=== PATIENT | male | born 1955 | race Caucasian/White ===

== ENCOUNTER 2017-03-21 10:05 | Inpatient (IN) ==
--- NOTE | 2017-03-21 10:09 | Emergency Department Note ---
Disposition Clinical Impression: Chest pain Disposition: Admitted As Inpatient Condition: Fair General Adult HPI - General Chief complaint: ED Chest Pain Stated complaint: Chest pain Time Seen by Provider: 03/21/17 10:06 - Related Data Home Medications Medication Instructions Recorded Confirmed Armodafinil [Nuvigil] 250 mg PO DAILY 03/21/17 03/21/17 Aspirin 81 mg PO DAILY 03/21/17 03/21/17 Carvedilol [Coreg] 6.25 mg PO BIDWM 03/21/17 03/21/17 Clopidogrel [Plavix] 75 mg PO DAILY 03/21/17 03/21/17 Gabapentin [Neurontin] 800 mg PO TID 03/21/17 03/21/17 Glimepiride [Amaryl] 2 mg PO QAM 03/21/17 03/21/17 Lisinopril [Zestril] 5 mg PO DAILY 03/21/17 03/21/17 Magnesium Oxide [Mgo] 400 mg PO DAILY 03/21/17 03/21/17 Metformin HCl [Glucophage] 1,000 mg PO BID 03/21/17 03/21/17 Multivits,Ca,Min/Iron/FA/Lycop 1 tab PO DAILY 03/21/17 03/21/17 [Centrum Men's Tablet] Nitroglycerin [Nitrostat] 0.4 mg SL AD PRN 03/21/17 03/21/17 OxyCODONE/APAP 5/325 [Percocet 1 tab PO Q6HR PRN 03/21/17 03/21/17 5/325 MG] Simvastatin [Zocor] 40 mg PO HS 03/21/17 03/21/17 Zolpidem [Ambien] 10 mg PO HS 03/21/17 03/21/17 Allergies Allergy/AdvReac Type Severity Reaction Status Date / Time No Known Allergies Allergy Verified 03/21/17 12:10 Past Medical History - Past Medical History Medical history: Reports: hyperlipidemia, hypertension, myocardial infarction Psychiatric history: Reports: no psych history - Social History Smoking Status: Never smoker Smokeless Tobacco Status: No Alcohol use: Reports: none Drug use: Reports: none Course Vital Signs Temperature 97.6 F 03/21/17 10:12 Pulse Rate 62 03/21/17 10:12 Respiratory Rate 18 03/21/17 10:12 Blood Pressure 150/88 03/21/17 10:12 O2 Sat by Pulse Oximetry 94 03/21/17 10:12 Temperature 97.7 F 03/21/17 14:55 Pulse Rate 60 03/21/17 14:55 Respiratory Rate 17 03/21/17 14:55 Blood Pressure 109/62 03/21/17 14:55 O2 Sat by Pulse Oximetry 94 03/21/17 14:55 Oxygen Delivery Oxygen Delivery Room Air Medical Decision Making - Lab Data Result diagrams: 03/21/17 10:23 03/21/17 10:23 Lab Results 03/21/17 03/21/17 03/21/17 Range/Units 10:23 10:23 10:23 WBC 7.5 (4.3-11.1) K/mcL RBC 4.83 (4.19-5.50) M/mcL Hgb 15.0 (12.9-16.9) g/dL Hct 41.4 (37.5-50.1) % MCV 85.7 (83.0-100.0) fL MCH 31.1 (28.0-33.3) pg MCHC 36.2 H (31.6-35.5) g/dL RDW 12.5 (11.5-14.5) % Plt Count 131 L (140-400) K/mcL MPV 10.3 (9.4-12.4) fL Immature Gran % 0.4 (0-4) % Seg Neutrophils % 57.3 % Lymphocytes % 26.4 % Monocytes % 9.7 % Eosinophils % 5.8 % Basophils % 0.4 % Neutrophils # 4.3 (1.6-8.9) K/mcL Lymphocytes # 2.0 (0.6-4.6) K/mcL Monocytes # 0.7 (0.0-1.3) K/mcL Eosinophils # 0.4 (0.0-0.6) K/mcL Basophils # 0.0 (0.0-0.2) K/mcL Immature Plt Fraction 4.9 (1.1-6.1) % PT 11.5 (9.4-12.1) Seconds INR 1.1 APTT 26.7 (26.0-36.0) Seconds Sodium 138 (136-145) mEq/L Potassium 3.9 (3.5-4.5) mEq/L Chloride 102 (98-109) mEq/L Carbon Dioxide 27 (19-29) mEq/L BUN 19 (8-26) mg/dL Creatinine 0.83 (0.72-1.25) mg/dL Est GFR ( Amer) > 60 (> 60) Est GFR (Non-Af Amer) > 60 (> 60) BUN/Creatinine Ratio 23 (6-26) Glucose 234 H (70-99) mg/dL Calculated Osmolality 296 (280-300) Calcium 9.9 (8.6-10.8) mg/dL Magnesium 1.8 (1.6-2.6) mg/dL Troponin I (0-0.03) ng/mL B-Natriuretic Peptide (0-100) pg/mL Triglycerides 101 (< 150) mg/dL Cholesterol 127 (< 200) mg/dL LDL Cholesterol, Calc 75 (0-99) mg/dL VLDL Cholesterol, Calc 20 (< 31) mg/dL HDL Cholesterol 32 L (40-59) mg/dL Cholesterol/HDL Ratio 4.0 (0-4.9) 03/21/17 03/21/17 Range/Units 10:23 10:23 WBC (4.3-11.1) K/mcL RBC (4.19-5.50) M/mcL Hgb (12.9-16.9) g/dL Hct (37.5-50.1) % MCV (83.0-100.0) fL MCH (28.0-33.3) pg MCHC (31.6-35.5) g/dL RDW (11.5-14.5) % Plt Count (140-400) K/mcL MPV (9.4-12.4) fL Immature Gran % (0-4) % Seg Neutrophils % % Lymphocytes % % Monocytes % % Eosinophils % % Basophils % % Neutrophils # (1.6-8.9) K/mcL Lymphocytes # (0.6-4.6) K/mcL Monocytes # (0.0-1.3) K/mcL Eosinophils # (0.0-0.6) K/mcL Basophils # (0.0-0.2) K/mcL Immature Plt Fraction (1.1-6.1) % PT (9.4-12.1) Seconds INR APTT (26.0-36.0) Seconds Sodium (136-145) mEq/L Potassium (3.5-4.5) mEq/L Chloride (98-109) mEq/L Carbon Dioxide (19-29) mEq/L BUN (8-26) mg/dL Creatinine (0.72-1.25) mg/dL Est GFR ( Amer) (> 60) Est GFR (Non-Af Amer) (> 60) BUN/Creatinine Ratio (6-26) Glucose (70-99) mg/dL Calculated Osmolality (280-300) Calcium (8.6-10.8) mg/dL Magnesium (1.6-2.6) mg/dL Troponin I 0.02 (0-0.03) ng/mL B-Natriuretic Peptide 36 (0-100) pg/mL Triglycerides (< 150) mg/dL Cholesterol (< 200) mg/dL LDL Cholesterol, Calc (0-99) mg/dL VLDL Cholesterol, Calc (< 31) mg/dL HDL Cholesterol (40-59) mg/dL Cholesterol/HDL Ratio (0-4.9) Attestation Statement - Attestation Attestation: I examined this patient and my medical decision-making was reviewed with the PROPERTY CUSTODIAN/PA/Advanced Practice Nurse/Resident Physician. I agree with the documented findings, disposition and treatment plan as described except to the extent set forth below. Face to face time provided Patient presents via EMS with chest pain. He appears in no acute distress on exam. He has a history of multiple vessel CABG and previous myocardial infarction. Family at bedside. Patient seen and evaluated in conjunction with the resident physician Dr. Clayton
--- NOTE | 2017-03-21 10:15 | Emergency Department Note ---
Disposition Clinical Impression: Chest pain Qualifiers: Chest pain type: unspecified Qualified Code(s): R07.9 - Chest pain, unspecified Disposition: Admitted As Inpatient Condition: Fair Forms: ED Satisfaction Letter Time of Disposition: 11:21 Chest Pain HPI - General Chief Complaint: ED Chest Pain Stated Complaint: Chest pain Time Seen by Provider: 03/21/17 10:06 Source: patient, family, EMS Mode of arrival: EMS Limitations: no limitations Vital Signs Reviewed: Yes Nursing Notes Reviewed: Yes - History of Present Illness HPI Narrative: Patient presents to the ED with the chief complaint of chest pain. Patient reports that he started having some epigastric discomfort last night and after belching and passing gas. He felt better. He was at work this morning, resting comfortably approximately 2 hours ago and had the abrupt onset of what he describes as substernal pain. It is located in the sternum, nonradiating, better or worse with nothing. Not associated with shortness of breath or diaphoresis lasted about 35 minutes and then self resolved after EMS administered nitroglycerin. He does state that he has a history of a 5 vessel bypass and that this pain is the same pain he was having with this second heart attack. He denies any symptoms currently and is pain-free. - Related Data Allergies Allergy/AdvReac Type Severity Reaction Status Date / Time No Known Allergies Allergy Unverified 10/01/15 14:02 All systems ED: reviewed and negative except as stated. Cardiovascular: Reports: chest pain (resolved) Chest Pain PMH - Past Medical History Medical history: Reports: hyperlipidemia, hypertension, myocardial infarction Psychiatric history: Reports: no psych history - Social History Smoking Status: Never smoker Alcohol use: Reports: none Drug use: Reports: none Physical Exam - General Limitations: no limitations General appearance: alert, in no apparent distress - Head Head exam: atraumatic, normocephalic, normal inspection - Eye Eye exam: Present: normal appearance, PERRL, EOMI - ENT ENT exam: normal exam, normal oropharynx, mucous membranes moist - Neck Neck exam: Present: normal inspection, full ROM, trachea midline - Chest Chest inspection: Present: normal inspection, symmetric chest wall rise - Respiratory Respiratory exam: Present: normal lung sounds bilaterally - Cardiovascular Cardiovascular exam: Present: regular rate, normal rhythm, normal heart sounds - Abdominal Exam Abdominal exam: Present: soft, Non-Tender. Absent: tenderness, distention, guarding, rebound, rigidity - Extremities Exam Extremities exam: Present: normal inspection, full ROM. Absent: tenderness, pedal edema - Neurological Exam Neurological exam: Present: alert, oriented X3 - Psychiatric Psychiatric exam: Present: normal affect, normal mood - Skin Skin exam: Present: warm, dry, intact, normal color Course Course Narrative: 61 -year-old male presenting to the ED with chest pain. 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 He started having chest pain proximally 2 hours ago, lasted about 30 minutes and resolved with nitroglycerin. This was his previous anginal equivalent. Patient's pain is completely gone. Vitals are stable. There is no diaphoresis, cyanosis, or shortness of breath. He looks well. We will get an EKG, labs, troponin. We will likely require admission. The patient was requesting transfer to [facility]. - Reevaluation(s) Reevaluation #1: Patient's EKG from EMS shows an ectopic atrial rhythm, rate 71, HI interval 228 , QTC 437, left axis deviation, slight ST segment changes in V2 and V3 with similar morph to previous. Repeating EKG here now. Reevaluation #2: Patient has remained pain-free. Troponins negative. EKG is unchanged from previous. However, the patient is having his anginal "blacked. Recommended admission. Patient originally wanted to be transferred to [place], but talked to his centerless grinder operator and states that she has been very sick and is actually receiving chemotherapy and would be unable to see him in the hospital, so he was amenable to admission here for further testing. Vital Signs Temperature 97.6 F 03/21/17 10:12 Pulse Rate 62 03/21/17 10:12 Respiratory Rate 18 03/21/17 10:12 Blood Pressure 150/88 03/21/17 10:12 O2 Sat by Pulse Oximetry 94 03/21/17 10:12 Temperature 97.6 F 03/21/17 10:12 Pulse Rate 62 03/21/17 10:43 Respiratory Rate 18 03/21/17 10:43 Blood Pressure 125/73 03/21/17 10:43 O2 Sat by Pulse Oximetry 94 03/21/17 10:43 Oxygen Delivery Oxygen Delivery Room Air Chest Pain - Medical Records Medical records reviewed: Yes I reviewed the patient's medical records. - Lab Data Lab results reviewed: Yes I reviewed the patient's lab results. Result diagrams: 03/21/17 10:23 03/21/17 10:23 Lab Results 03/21/17 03/21/17 03/21/17 Range/Units 10:23 10:23 10:23 WBC 7.5 (4.3-11.1) K/mcL RBC 4.83 (4.19-5.50) M/mcL Hgb 15.0 (12.9-16.9) g/dL Hct 41.4 (37.5-50.1) % MCV 85.7 (83.0-100.0) fL MCH 31.1 (28.0-33.3) pg MCHC 36.2 H (31.6-35.5) g/dL RDW 12.5 (11.5-14.5) % Plt Count 131 L (140-400) K/mcL MPV 10.3 (9.4-12.4) fL Immature Gran % 0.4 (0-4) % Seg Neutrophils % 57.3 % Lymphocytes % 26.4 % Monocytes % 9.7 % Eosinophils % 5.8 % Basophils % 0.4 % Neutrophils # 4.3 (1.6-8.9) K/mcL Lymphocytes # 2.0 (0.6-4.6) K/mcL Monocytes # 0.7 (0.0-1.3) K/mcL Eosinophils # 0.4 (0.0-0.6) K/mcL Basophils # 0.0 (0.0-0.2) K/mcL Immature Plt Fraction 4.9 (1.1-6.1) % PT 11.5 (9.4-12.1) Seconds INR 1.1 APTT 26.7 (26.0-36.0) Seconds Sodium 138 (136-145) mEq/L Potassium 3.9 (3.5-4.5) mEq/L Chloride 102 (98-109) mEq/L Carbon Dioxide 27 (19-29) mEq/L BUN 19 (8-26) mg/dL Creatinine 0.83 (0.72-1.25) mg/dL Est GFR ( Amer) > 60 (> 60) Est GFR (Non-Af Amer) > 60 (> 60) BUN/Creatinine Ratio 23 (6-26) Glucose 234 H (70-99) mg/dL Calculated Osmolality 296 (280-300) Calcium 9.9 (8.6-10.8) mg/dL Troponin I (0-0.03) ng/mL 03/21/17 Range/Units 10:23 WBC (4.3-11.1) K/mcL RBC (4.19-5.50) M/mcL Hgb (12.9-16.9) g/dL Hct (37.5-50.1) % MCV (83.0-100.0) fL MCH (28.0-33.3) pg MCHC (31.6-35.5) g/dL RDW (11.5-14.5) % Plt Count (140-400) K/mcL MPV (9.4-12.4) fL Immature Gran % (0-4) % Seg Neutrophils % % Lymphocytes % % Monocytes % % Eosinophils % % Basophils % % Neutrophils # (1.6-8.9) K/mcL Lymphocytes # (0.6-4.6) K/mcL Monocytes # (0.0-1.3) K/mcL Eosinophils # (0.0-0.6) K/mcL Basophils # (0.0-0.2) K/mcL Immature Plt Fraction (1.1-6.1) % PT (9.4-12.1) Seconds INR APTT (26.0-36.0) Seconds Sodium (136-145) mEq/L Potassium (3.5-4.5) mEq/L Chloride (98-109) mEq/L Carbon Dioxide (19-29) mEq/L BUN (8-26) mg/dL Creatinine (0.72-1.25) mg/dL Est GFR ( Amer) (> 60) Est GFR (Non-Af Amer) (> 60) BUN/Creatinine Ratio (6-26) Glucose (70-99) mg/dL Calculated Osmolality (280-300) Calcium (8.6-10.8) mg/dL Troponin I 0.02 (0-0.03) ng/mL - Radiology Data Radiology results reviewed: Yes I reviewed the patient's radiology results. - EKG Data EKG attestation: Yes I reviewed and interpreted this EKG. EKG results narrative: EKG shows sinus rhythm with first-degree AV block, HI interval 239, rate 62, QRS 162, QTC 441, left axis deviation, left bundle branch block which is similar in morphology to previous in 2015. Kvng - Kvng Situation: Demographics, MOA Background: Presenting Complaint, Relevant PMH, Meds, & Allergies Assessment: Vital Signs, Course and respsone to treatment, Exam Concerns, Patient/Family Expectation, Pertinant Lab Results, Outstanding Labs Recommendation: Recommendation based on pending studies, treatments, or consults SRosa Report Given to: Dr. Florencio Calderon Repor Time: 11:21
[2017-03-21 10:31] LABS: Basophils % 0.4 %; Eosinophils # 0.4 K/mcL (0.0-0.6); Eosinophils % 5.8 %; Hematocrit 41.4 % (37.5-50.1); Immature Granulocytes % 0.4 % (0-4); Immature Platelets 4.9 % (1.1-6.1); Lymphocytes % 26.4 %; Mean Corpuscular HGB Conc 36.2 g/dL (31.6-35.5); Mean Corpuscular Hemoglobin 31.1 pg (28.0-33.3); Mean Corpuscular Volume 85.7 fL (83.0-100.0); Mean Platelet Volume 10.3 fL (9.4-12.4); Monocytes # 0.7 K/mcL (0.0-1.3); Monocytes % 9.7 %; Neutrophils # 4.3 K/mcL (1.6-8.9); Platelet Count 131 K/mcL (140-400); Red Blood Count 4.83 M/mcL (4.19-5.50); Red Cell Distribution Width 12.5 % (11.5-14.5); Segmented Neutrophils % 57.3 %
[2017-03-21 10:40] LABS: INR 1.1; Prothrombin Time 11.5 Seconds (9.4-12.1)
[2017-03-21 10:43] LABS: Activated Partial Thrombo Time 26.7 Seconds (26.0-36.0)
[2017-03-21 10:44] LABS: BUN/Creatinine Ratio 23 (6-26); Blood Urea Nitrogen 19 mg/dL (8-26); Calcium 9.9 mg/dL (8.6-10.8); Carbon Dioxide 27 mEq/L (19-29); Chloride 102 mEq/L (98-109); Glucose 234 mg/dL (70-99); Osmolality,Calculated 296 (280-300); Potassium 3.9 mEq/L (3.5-4.5); Sodium 138 mEq/L (136-145); eGFR For African Americans > 60 (> 60); eGFR For Non-African Americans > 60 (> 60)
--- NOTE | 2017-03-21 12:13 | Event Note ---
Date of Encounter: 03/21/17 Time of Encounter: 12:11 Patient seen and examine dwith [employer]. CABG in 2004 and redo in 2008. Episode of chest pain appeared anginal lasted for 30 min-1h and resolved with SLN. troponin normal and EKG shows LBBB unchanged from previous. r/o ACS. He wasnt to be DNR.
[2017-03-21] MEDS ORDERED: *HR* Enoxaparin 120 MG/0.8 ML SYRINGE SQ ONE (12:18)
[2017-03-21] MEDS ORDERED: Naloxone 0.4 MG/ML INJ IVP PRN (12:39)
[2017-03-21] MEDS ORDERED: Nitroglycerin 0.4 MG TAB.SUBL SL PRN (12:52)
[2017-03-21 13:41] LABS: Cholesterol 127 mg/dL (< 200); HDL Cholesterol 32 mg/dL (40-59); LDL Cholesterol,Calculated 75 mg/dL (0-99); Magnesium 1.8 mg/dL (1.6-2.6); Triglycerides 101 mg/dL (< 150)
--- NOTE | 2017-03-21 13:50 | Internal Med History&Physical ---
Date of Encounter: 03/21/17 Time of Encounter: 12:30 Assessment and Plan (1) Chest pain Current visit: Yes Status: Acute Assess: Patient presents with chief complaint of chest pain since 09:00 today (03/21/17) . He describes the pain as constant for 45 minutes to an hour, then sharp and intermittent. He rates the constant pain at 7 and the sharp pain as a 10. Patient was given nitroglycerin in the ED which alleviated the pain. Patient reports he had this same pain 3x before: 2004 before he under went quintuple bypass surgery, 2008, and 2012. Mr. Stevens also reports episodes of lightheadedness and dizziness but denies orthostatic hypotension. Patient has a long history of chronic hyperlipidemia, chronic hypertension, and myocardial infarction. Plan: Order to trend troponins Continuous cardiac monitoring ordered EV bilateral carotid duplex imaging ordered EV echocardiogram ordered CTA chest ordered BNP ordered D-dimer ordered Lipid panel ordered Cardiology consult ordered and confirmed. Continue Simvastatin Continue Carvedilol Continue Clopidogrel Continue Lisinopril Nitroglycerin ordered PRN Cardiac diet ordered DVT prophylaxis ordered Monitor patient's vitals Qualifiers: Chest pain type: unspecified Qualified Code(s): R07.9 - Chest pain, unspecified (2) Diabetic neuropathy Current visit: Yes Status: Chronic Assess: Patient presents with history of chronic diabetic neuropathy and reports episodes of numbness, tingling, and pins/needles sensations in lower legs and feet bilaterally. Plan: Hold home oral hyperglycemics Correction insulin dosing ordered Hypoglycemia protocol ordered Patient educated on proper foot care and how to check for sores and wounds on feet and lower legs Patient educated on proper foot wear to reduce friction on feet visual educator consult ordered Qualifiers: Diabetes mellitus type: type 2 Diabetes mellitus complication detail: diabetic polyneuropathy Qualified Code(s): E11.42 - Type 2 diabetes mellitus with diabetic polyneuropathy (3) Hyperlipidemia Current visit: Yes Status: Chronic Assess: Patient presents with history of chronic hyperlipidemia. Plan: Continue Simvastatin Lipid panel ordered Qualifiers: Hyperlipidemia type: unspecified Qualified Code(s): E78.5 - Hyperlipidemia , unspecified (4) Hypertension Current visit: Yes Status: Chronic Assess: Patient presents with history of chronic hypertension. Plan: Continue Lisinopril Monitor patient's vital signs Qualifiers: Hypertension type: essential hypertension Qualified Code(s): I10 - Essential (primary) hypertension (5) DVT prophylaxis Current visit: Yes Status: Acute Assess: Patient to be placed on DVT prophylaxis due to current chest pain status and inpatient bed rest status. Plan: Heparin 5,000 SQ Q8HR ordered Monitor patient closely Internal Medicine - H&P: HPI Chief complaint: Chest pain Admitted From: Emergency Dept Plans for Post Hospital Care: Home History of present illness: Mr. Stevens is a 61 year old male who presents from the ED with chief complaint of chest pain since 09:00 today (03/21/17). He describes the pain as constant for 45 minutes to an hour, then sharp and intermittent. He rates the constant pain at 7 and the sharp pain as a 10. Patient was given nitroglycerin in the ED which alleviated the pain. Patient reports he had this same pain 3x before: 2004 before he under went quintuple bypass surgery, 2008, and 2012. Mr. Stevens also reports episodes of lightheadedness and dizziness but denies orthostatic hypotension. Patient also reports bilateral diabetic neuropathy. Patient has a long history of chronic hyperlipidemia, chronic hypertension, and myocardial infarction. Mr. Stevens reports having chronic headaches within the past week. He also reports 2 days ago he fell out of bed. He also reports losing total vision for 15-20 minutes one week ago and having problems with his short-term memory. Mr. Stevens had an MRI of the brain done on 05/10/16 for memory loss and hand tremors. Impression from this MRI showed that there was no acute infarct or acute intracranial process identified, but there were mild chronic small vessel ischemic changes present. He reports he has an eye appointment in 2 days. Mr. Stevens will be admitted as inpatient status with troponins trended x3 , continuous cardiac monitoring, various labs including BNP and d-dimer, EV bilateral carotid duplex imaging, cardiac consult, and DVT prophylaxis. Patient to be monitored closely. Past Med Surg Social Fam HX - Past Medical History Source: patient Medical history: diabetes, hyperlipidemia, hypertension, myocardial infarction Psychiatric history: no psych history - Past Surgical History Surgical History: coronary bypass (CABG), other (Patient reports having a scope of the right knee, two back surgeries, and Lasix surgery on his eyes.) - Social History Smoking Status: Never smoker Smokeless Tobacco Status: No Alcohol use: none Drug use: none Occupational status: employed Current living situation: Home, With Family Activity Level: Independent ambulation, Very active Recent Out of Country Travel Within the Last 8 Weeks: No Exposure or Possible Exposure to Illness During Travel: No - Family History Mother Race: Family Member Ethnicity: Non- Living Status: Age at : 77 Hx Family Cardiac Disorders: Yes (CHF) Father Race: Family Member Ethnicity: Non- Living Status: Age at : 42 Cause of : Accident Brother Race: Family Member Ethnicity: Non- Living Status: Still Living Hx Family Cancer: Yes (Lung) Sister Race: Family Member Ethnicity: Non- Living Status: Still Living Hx Family Cardiac Disorders: Yes (HD, UT, HTN, Hyperlipidemia) Hx Family Respiratory Disorders: Yes (COPD) Hx Family Endocrine Disorder: Yes (DM) Internal Medicine - H&P: Meds Armodafinil [Nuvigil] 250 mg PO DAILY 03/21/17 [History] Aspirin 81 mg PO DAILY 03/21/17 [History] Carvedilol [Coreg] 6.25 mg PO BIDWM 03/21/17 [History] Clopidogrel [Plavix] 75 mg PO DAILY 03/21/17 [History] Gabapentin [Neurontin] 800 mg PO TID 03/21/17 [History] Glimepiride [Amaryl] 2 mg PO QAM 03/21/17 [History] Lisinopril [Zestril] 5 mg PO DAILY 03/21/17 [History] Magnesium Oxide [Mgo] 400 mg PO DAILY 03/21/17 [History] Metformin HCl [Glucophage] 1,000 mg PO BID 03/21/17 [History] Multivits,Ca,Min/Iron/FA/Lycop [Centrum Men's Tablet] 1 tab PO DAILY 03/21/17 [ History] Nitroglycerin [Nitrostat] 0.4 mg SL AD PRN 03/21/17 [History] OxyCODONE/APAP 5/325 [Percocet 5/325 MG] 1 tab PO Q6HR PRN 03/21/17 [History] Simvastatin [Zocor] 40 mg PO HS 03/21/17 [History] Zolpidem [Ambien] 10 mg PO HS 03/21/17 [History] Allergies No Known Allergies Allergy (Verified 03/21/17 12:10) All Systems PM: A 10-system review of systems was performed and is negative for pertinent findings except as documented above in the HPI. - Constitutional Constitutional: as per HPI, falls (Patient reports periods of dizziness and states that he fell out of bed 2 days ago. Denies orthostatic hypotension.) - EENT Eyes: as per HPI, change in vision, loss of vision (Patient reports total loss of vision for 15-20 minutes one week ago.) Nose, mouth and throat: no dysphagia, no nasal discharge, no neck pain, no sore throat - Breasts Breasts: as per HPI - Cardiovascular Cardiovascular ROS IM: as per HPI, chest pain, lightheadedness - Respiratory Respiratory: as per HPI, cough (Patient states he has had a dry cough for the past six months. ) - Gastrointestinal Gastrointestinal: no abdominal pain, no diarrhea, no hematemesis, no hematochezia, no melena, no nausea, no vomiting - Genitourinary Genitourinary ROS male: as per HPI - Musculoskeletal Musculoskeletal ROS IM: as per HPI, muscle cramps (Patient reports leg cramps in his calves bilaterally. Takes Mag-Ox currently.) - Integumentary Integumentary IM: no rash, no unusual bruising - Neurological Neurological ROS: dizziness, headache(s), memory loss Additional comments: Patient reports episodes of dizziness, short-term memory loss, and headaches. Mr. Stevens had an MRI of the brain done without contrast on 05/10/16 for memory loss and hand tremors. Impression of the MRI showed no acute infarct or acute intracranial process identified. There were mild chronic small vessel ischemic changes. - Psychiatric Psychiatric: as per HPI - Endocrine Endocrine IM: as per HPI - Hematologic/Lymphatic Hematologic/Lymphatic: no easy bruising - Allergic/Immunologic Allergic/Immunologic: as per HPI - Constitutional Vitals: Temp Pulse Resp BP Pulse Ox 97.8 F 58 16 135/78 95 03/21/17 12:47 03/21/17 12:47 03/21/17 12:47 03/21/17 12:47 03/21/17 12:47 General appearance: Present: cooperative, A&O X 3, pleasant, no acute distress, obese, answers questions appropriately - Head Head exam: Present: atraumatic, normocephalic - Eye Eye exam: Present: PERRL, conjuntiva pink, sclera anicteric Pupils: Present: PERRL - ENT ENT exam: Present: normal exam, normal external ear exam - Neck Neck exam general surgery: Present: supple, trachea midline. Absent: lymphadenopathy - Respiratory Respiratory exam: Present: CTAB. Absent: accessory muscle use, rales, rhonchi, wheezes - Cardiovascular Cardiovascular exam: Present: RRR, +S1, +S2. Absent: diastolic murmur, gallop, rubs, systolic murmur - GI/Abdominal GI/Abdominal exam: Present: normal bowel sounds, soft, no peritoneal signs. Absent: distended, tenderness - Rectal Rectal exam: Present: deferred - Additional comments: exam deferred. - Extremities Exam Extremities exam: Present: warm, radial pulses palpable and symetrical. Absent : calf tenderness, cyanotic, pedal edema - Back Exam Back exam: Present: normal inspection - Neurological Exam Neurological exam: Present: CN II-XII intact, oriented X3, no focal deficits. Absent: pronater drift, facial droop, speech deficit - Psychiatric Psychiatric exam: Present: normal affect, normal mood - Skin Skin exam: Present: dry, intact Internal Med - H&P Results - Labs CBC & Chem 7: 03/21/17 10:23 03/21/17 10:23 - EKG Data Prior EKG available for review: yes When compared to previous EKG: there is no significant change EKG comments: 03/21/17 14:07 EKG dated 10/01/15 shows sinus rhythm with occasional ventricular premature complexes, marked left axis deviation, and left bundle branch block. EKG dated 03/21/17 shows sinus rhythm with first degree AV block with occasional ventricular premature complexes, marked left axis deviation, and left bundle branch block. - Diagnostic Studies Chest x-ray Additional comments: 2-View CXR dated 03/21/17 shows status post-coronary artery bypass. There are epicardial pacer leads. Heart size and pulmonary vasculature within normal limits. There is incomplete inspiration. Lungs are clear. Costophrenic angles are sharp. No active cardiopulmonary disease.
--- NOTE | 2017-03-21 14:46 | Cardiology Consult Note ---
<Chaz Tilley - Last Filed: 03/21/17 16:02> Date of Encounter: 03/21/17 Time of Encounter: 14:43 Assessment and Plan (1) Chest pain Current Visit: Yes Status: Acute CABG in 2003, LHC in 2008 without stents Sudden onset of CP this afternoon with complete resolution after a single nitroglycerin and aspirin. EKG reviewed which demonstrates old LBBB. No acute changes seen. Currently asymptomatic with HR of 58 and BP of 135/78. Recommend trending troponin, echo, stress test in AM if testing otherwise negative. No current recommendation for anticoagulation or acute intervention Qualifiers: Chest pain type: unspecified Qualified Code(s): R07.9 - Chest pain, unspecified Discussion w patient/family: The assessment and plan as outlined above was discussed with the patient and/or family members who expressed understanding and agreement. All questions were answered. Thank you for involving us in the care of your patient. Please call with any questions. History of Present Illness Consult date: 03/21/17 Consult reason: Chest pain Chief complaint: Chest pain History of present illness: Mr. Stevens is a 61 year old male who had sudden onset of substernal chest discomfort that began while standing in line at a store. It lasted about 35 minutes and resolved after EMS arrived and administered nitro and aspirin. He said he had 1 nitro and the pain resolved within 3 minutes of it. PMH of CABG in 2003. He reports a LHC in 2008 but no stents. He says they "cleaned out the vessels". Denies any tobacco use. He denies any syncope but has had some occasional episodes of presyncope. He has no symptoms currently. He reports yesterday he had no symptoms aside from some pressure in his epigastrum after eating 2 bowls of beans which resolved after belching. Other significant PMH are DM, CAD, HTN, HLD, and narcolepsy. He is followed by Dr Marin in neurology. His petrophysical engineer is Dr Domenica Waters at [place]. Past Med Surg Social Fam HX - Past Medical History Medical history: diabetes, hyperlipidemia, hypertension, myocardial infarction Psychiatric history: no psych history - Past Surgical History Surgical History: coronary bypass (CABG), other (Patient reports having a scope of the right knee, two back surgeries, and Lasix surgery on his eyes.) - Social History Smoking Status: Never smoker Smokeless Tobacco Status: No Alcohol use: none Drug use: none - Family History Mother Race: Family Member Ethnicity: Non- Living Status: Age at : 77 Hx Family Cardiac Disorders: Yes (CHF) Father Race: Family Member Ethnicity: Non- Living Status: Age at : 42 Cause of : Accident Brother Race: Family Member Ethnicity: Non- Living Status: Still Living Hx Family Cancer: Yes (Lung) Sister Race: Family Member Ethnicity: Non- Living Status: Still Living Hx Family Cardiac Disorders: Yes (HD, [place], HTN, Hyperlipidemia) Hx Family Respiratory Disorders: Yes (COPD) Hx Family Endocrine Disorder: Yes (DM) Medications and Allergies Armodafinil [Nuvigil] 250 mg PO DAILY 03/21/17 [History] Aspirin 81 mg PO DAILY 03/21/17 [History] Carvedilol [Coreg] 6.25 mg PO BIDWM 03/21/17 [History] Clopidogrel [Plavix] 75 mg PO DAILY 03/21/17 [History] Gabapentin [Neurontin] 800 mg PO TID 03/21/17 [History] Glimepiride [Amaryl] 2 mg PO QAM 03/21/17 [History] Lisinopril [Zestril] 5 mg PO DAILY 03/21/17 [History] Magnesium Oxide [Mgo] 400 mg PO DAILY 03/21/17 [History] Metformin HCl [Glucophage] 1,000 mg PO BID 03/21/17 [History] Multivits,Ca,Min/Iron/FA/Lycop [Centrum Men's Tablet] 1 tab PO DAILY 03/21/17 [ History] Nitroglycerin [Nitrostat] 0.4 mg SL AD PRN 03/21/17 [History] OxyCODONE/APAP 5/325 [Percocet 5/325 MG] 1 tab PO Q6HR PRN 03/21/17 [History] Simvastatin [Zocor] 40 mg PO HS 03/21/17 [History] Zolpidem [Ambien] 10 mg PO HS 03/21/17 [History] Allergies No Known Allergies Allergy (Verified 03/21/17 12:10) All Systems Review: A 10-system review of systems was performed and is negative for pertinent findings except as documented above in the HPI. - Constitutional Constitutional: no fever(s) - Cardiovascular Cardiovascular: chest pain at rest, no chest pain with exertion, no dyspnea at rest, no syncope - Respiratory Respiratory: cough (occasional longstanding cough) - Genitourinary Genitourinary: no dysuria - Integumentary Integumentary: no rash - Neurological Neurological: dizziness Physical Examination Vital Signs, Last 4 Hours Temp Pulse Resp BP Pulse Ox 03/21/17 12:47 97.8 F 58 16 135/78 95 03/21/17 12:05 18 133/82 General: Conversant HEENT: Atraumatic Neck: No JVD Cardiac: Reg Rate and Rhythm, Normal S1 and S2 Lungs: Normal Breath Sounds, No Wheeze, Rales, Rhonchi Neuro: Alert and responsive Abdomen: Soft Skin: No rashes noted on visualized skin Musculoskeletal: No Chest Wall Tenderness Extremities: No Cyanosis, No Edema, Normal Pulses Results 03/21/17 10:23 03/21/17 10:23 Consult Discharge Plan - Plan Referrals: Domenica Webb MD [Primary Care Provider] - 04/03/17 11:00 am <Carolina Lackey - Last Filed: 03/21/17 17:07> Date of Encounter: 03/21/17 Assessment and Plan Discussion w patient/family: The assessment and plan as outlined above was discussed with the patient and/or family members who expressed understanding and agreement. All questions were answered. Thank you for involving us in the care of your patient. Please call with any questions. History of Present Illness History of present illness: Mr. Stevens is a 61 year old male All Systems Review: A 10-system review of systems was performed and is negative for pertinent findings except as documented above in the HPI. Physical Examination Vital Signs, Last 4 Hours Temp Pulse Resp BP Pulse Ox 03/21/17 14:55 97.7 F 60 17 109/62 94 Results 03/21/17 10:23 03/21/17 10:23 Lab Results 03/21/17 15:55 Troponin I 0.02 - Attending Attestation I examined this patient and my medical decision-making was reviewed with the TRUCK STRIKER/PA/Advanced Practice Nurse/Resident Physician. I agree with the documented findings, disposition and treatment plan. Mr. Stevens presents with an episode of chest pain while at work today. He was standing waiting for a mechanical part and developed sudden onset of discomfort. He has been chest pain free since. Await cycle of troponins and echo. Agree with medications; antiplatelet, statin and BB.
[2017-03-21] MEDS: *HR* OxyCODONE/APAP 5/325 TABLET PO PRN (14:48)
[2017-03-21] MEDS: Gabapentin 400 MG CAPSULE PO SCH ×2 (14:50→20:55)
--- NOTE | 2017-03-21 14:56 | Electrocardiograph Report ---
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
[2017-03-21] MEDS: Insulin LISPRO 300 UNITS/3 ML VIAL SQ SCH (16:24)
[2017-03-21] MEDS ORDERED: *HR* Heparin 5,000 UNIT/ML VIAL SQ SCH (22:00)
[2017-03-22 04:35] LABS: Basophils % 0.2 %; Eosinophils # 0.5 K/mcL (0.0-0.6); Eosinophils % 6.2 %; Hematocrit 41.4 % (37.5-50.1); Hemoglobin 14.7 g/dL (12.9-16.9); Immature Granulocytes % 0.5 % (0-4); Lymphocytes # 2.3 K/mcL (0.6-4.6); Lymphocytes % 27.2 %; Mean Corpuscular HGB Conc 35.5 g/dL (31.6-35.5); Mean Corpuscular Hemoglobin 31.3 pg (28.0-33.3); Mean Corpuscular Volume 88.1 fL (83.0-100.0); Mean Platelet Volume 10.7 fL (9.4-12.4); Monocytes # 0.7 K/mcL (0.0-1.3); Monocytes % 8.1 %; Neutrophils # 4.9 K/mcL (1.6-8.9); Platelet Count 122 K/mcL (140-400); Red Cell Distribution Width 12.8 % (11.5-14.5); Segmented Neutrophils % 57.8 %
[2017-03-22 04:57] LABS: Alanine Aminotransferase 25 Units/L (0-55); Albumin 3.7 g/dL (3.5-5.0); Albumin/Globulin Ratio 1.2 (1.1-2.2); Alkaline Phosphatase 67 Units/L (38-126); Aspartate Amino Transferase 20 Units/L (5-34); BUN/Creatinine Ratio 20 (6-26); Blood Urea Nitrogen 16 mg/dL (8-26); Calcium 9.1 mg/dL (8.6-10.8); Carbon Dioxide 26 mEq/L (19-29); Chloride 102 mEq/L (98-109); Globulin 3.1 g/dL (2.4-3.5); Glucose 180 mg/dL (70-99); Osmolality,Calculated 292 (280-300); Potassium 3.7 mEq/L (3.5-4.5); Sodium 138 mEq/L (136-145); Total Protein 6.8 g/dL (6.0-8.3); eGFR For African Americans > 60 (> 60); eGFR For Non-African Americans > 60 (> 60)
[2017-03-22] MEDS ORDERED: Perflutren Lipid Microsphere 1.3 ML in 0.9 % Sodium Chloride 8.7 ML IVP ONE (08:19)
[2017-03-22] MEDS ORDERED: Regadenoson 0.4 MG/5 ML SYRINGE IVP ONE (09:09)
[2017-03-22] MEDS ORDERED: *HR* Heparin 5,000 UNIT/ML VIAL IVP ONE (10:05)
[2017-03-22] MEDS ORDERED: *HR* Heparin 5,000 UNIT/ML VIAL IVP PRN ×2 (10:05)
--- NOTE | 2017-03-22 10:10 | ECHO - Doppler Report ---
Echo with Imaging Enhancement Agent Name: Ap Stevens Date of Study: 03/22/2017 Date: 1955 Ht: 72.0 in Medical Record#: [id number] Age: 61 Wt: 257.0 lb Gender: Male BSA: 2.37 Order #: [id number] Location: [facility] Room #: 3B46 Reading Physician: Shayne Ramírez MD, [facility] Monotype Caster: Chito Abbott Ordering Physician: Chaz Tilley DO Primary Physician: None Indications: Chest pain, Coronary artery disease Impressions: Technically sub-optimal due to poor echocardiographic windows. Echo contrast was used. Moderate LV systolic dysfunction, LVEF 35-40%. There are regional wall motion abnormalities, see diagram below. The LV apex is akinetic with a small LV apical thrombus. Moderate left ventricular diastolic dysfunction. Normal right ventricular size and function. Unable to estimate RVSP due to lack of TR jet. No significant valvular dysfunction. Inpatient cardiology service was notified of the LV apical thrombus. Left Ventricular Wall Motion: Rest Echo Findings The basal inferior, mid inferior septal, basal inferior septal, apical lateral, mid anterior lateral, basal anterior lateral, mid anterior septal, mid inferior lateral, basal anterior septal and basal inferior lateral berger were hypokinetic. The apex and apical septal berger were akinetic. All other wall segments showed normal motion. Findings: Study Quality * Technically sub-optimal due to poor echocardiographic windows. Echo contrast was used. ECG Findings * Sinus bradycardia with BBB, occasional PVCs. Left Ventricle * Moderate LV systolic dysfunction, LVEF 35-40%. There are regional wall motion abnormalities, see diagram below. * Normal LV chamber size and wall thickness. * Moderate left ventricular diastolic dysfunction. * The LV apex is akinetic with a small LV apical thrombus. Right Ventricle * Normal right ventricular size and function. Left Atrium * Normal left atrial size. Right Atrium * Normal right atrial size. Aorta * Normally sized aortic root. Pericardium * There is no pericardial effusion present. IVC * The IVC is not well evaluated. Aortic Valve * Aortic valve not well visualized. Appears trileaflet with mild sclerosis. * No aortic stenosis. * No aortic regurgitation. Mitral Valve * Mild mitral annular calcification * No mitral stenosis. * Trace mitral regurgitation. Tricuspid Valve * Normal tricuspid valve structure. * No tricuspid stenosis. * Trace tricuspid regurgitation. * Unable to estimate RVSP due to lack of TR jet. Pulmonic Valve * Pulmonic valve not well visualized. * No pulmonic stenosis. * Mild pulmonic regurgitation. History Hypertension Diabetes Hypercholesteremia Family History of CAD History of CAD/PTCA Myocardial Infarction Coronary Artery Bypass Graft 2013 a Previous Echo was performed. Contrast: Definity 1.3 ml in 8.7 ml of saline 3 ml. Measurements: BP: 132/ 79 2D Normal Values IVSd: .80 cm 0.6 - 1.0 cm LVIDd: 5.50 cm 3.7 - 5.6 cm LVPWd: .90 cm 0.6 - 1.1 cm LVIDs: 4.50 cm 1.5 - 3.6 cm AO: 3.50 cm < 4.0 cm %FS: 18.20 cm >25 % LA volume: 60 Mitral Valve Peak E:1.05 m/sec Peak A:.88 m/sec E/A Ratio:1.2 Updated by Shayne Ramírez MD, FACC on 03/22/2017 10:06:02 AM electronically signed on 03/22/2017 10:06:27 AM with status of Final Wall Motion [place]: 1=Normal, 2=Hypokinesis, 3=Akinesis, 4=Dyskinesis, 5=Aneurysmal, 6=Hyperkinetic, X=Not Visualized (Blank)=Missing
--- NOTE | 2017-03-22 10:11 | Cardiology Progress Note ---
<Chaz Tilley - Last Filed: 03/22/17 11:27> Date of Encounter: 03/22/17 Time of Encounter: 10:09 Assessment and Plan (1) Left ventricular apical thrombus Current Visit: Yes Status: Acute LV apical thrombus seen on echo Likely secondary to diminished apical wall motion Will anticoagulate with heparin bridge and place on coumadin (2) Chest pain Current Visit: Yes Status: Acute CABG in 2003, LHC in 2008 without stents Sudden onset of CP this afternoon with complete resolution after a single nitroglycerin and aspirin. EKG reviewed which demonstrates old LBBB. No acute changes seen. Currently asymptomatic Troponin x3 negative Echo shows decrease in EF and addition of mild wall motion abnormalities, but more significantly a LV apical thrombus Will recommend left heart cath to the patient due to decreased EF, wall motion abnormalities, and chest pain Qualifiers: Chest pain type: unspecified Qualified Code(s): R07.9 - Chest pain, unspecified Discussion w patient/family: The assessment and plan as outlined above was discussed with the patient and/or family members who expressed understanding and agreement. All questions were answered. Thank you for involving us in the care of your patient. Please call with any questions. Objective Vital Signs, Last 4 Hours Temp Pulse Resp BP Pulse Ox 03/22/17 07:22 97.9 F 58 14 132/79 94 Results 03/22/17 03:20 03/22/17 03:20 Lab Results 03/21/17 03/21/17 03/22/17 15:55 21:53 03:20 WBC 8.4 Hgb 14.7 Hct 41.4 Plt Count 122 L Sodium Potassium Chloride Carbon Dioxide BUN Creatinine Glucose Calcium Total Bilirubin AST ALT Alkaline Phosphatase Troponin I 0.02 0.03 03/22/17 03:20 WBC Hgb Hct Plt Count Sodium 138 Potassium 3.7 Chloride 102 Carbon Dioxide 26 BUN 16 Creatinine 0.82 Glucose 180 H Calcium 9.1 Total Bilirubin 1.0 AST 20 ALT 25 Alkaline Phosphatase 67 Troponin I Consult Discharge Plan - Plan Referrals: Domenica Webb MD [Primary Care Provider] - 04/03/17 11:00 am <Carolina Lackey - Last Filed: 03/22/17 14:24> Date of Encounter: 03/22/17 Assessment and Plan Discussion w patient/family: Mr. Stevens's echo returned with worsening of systolic function with new wall motion abnormalities and now with an LV thrombus. Given recent chest pain, worsening LV function, new LV wall motion abnormalities and an LV thrombus suggesting a recent DC, we have recommended proceeding with a LHC. The R/B/A of the procedure were discussed with the patient who expressed understanding and agreement. Dr. Biggs (Interventional Cardiology) was notified of the presence of LV thrombus. The patient will start heparin to coumadin bridge. He is already on aspirin, plavix, BB and statin. Objective Vital Signs, Last 4 Hours Pulse Resp BP Pulse Ox 03/22/17 11:11 77 16 126/71 99 Results 03/22/17 11:42 03/22/17 03:20 Lab Results 03/21/17 03/21/17 03/22/17 15:55 21:53 03:20 WBC 8.4 Hgb 14.7 Hct 41.4 Plt Count 122 L INR APTT Sodium Potassium Chloride Carbon Dioxide BUN Creatinine Glucose Calcium Total Bilirubin AST ALT Alkaline Phosphatase Troponin I 0.02 0.03 03/22/17 03/22/17 03/22/17 03:20 11:42 11:42 WBC 7.2 Hgb 15.2 Hct 42.5 Plt Count 130 L INR APTT 28.0 Sodium 138 Potassium 3.7 Chloride 102 Carbon Dioxide 26 BUN 16 Creatinine 0.82 Glucose 180 H Calcium 9.1 Total Bilirubin 1.0 AST 20 ALT 25 Alkaline Phosphatase 67 Troponin I 03/22/17 11:42 WBC Hgb Hct Plt Count INR 1.1 APTT Sodium Potassium Chloride Carbon Dioxide BUN Creatinine Glucose Calcium Total Bilirubin AST ALT Alkaline Phosphatase Troponin I
[2017-03-22] MEDS: Multivit/Ca/Min/Fe/FA 1 TAB TABLET PO SCH (10:48)
[2017-03-22] MEDS: Magnesium Oxide 400 MG TABLET PO SCH (10:48)
[2017-03-22] MEDS: Aspirin 81 MG TAB.CHEW PO SCH (10:49)
[2017-03-22] MEDS: Gabapentin 400 MG CAPSULE PO SCH ×3 (10:49→21:47)
[2017-03-22] MEDS: Insulin LISPRO 300 UNITS/3 ML VIAL SQ SCH ×3 (10:50→17:08)
[2017-03-22] MEDS: (Armodafinil [Nuvigil] 250 MG) PO SCH (10:51)
[2017-03-22 11:57] LABS: Hematocrit 42.5 % (37.5-50.1); Hemoglobin 15.2 g/dL (12.9-16.9); Mean Corpuscular HGB Conc 35.8 g/dL (31.6-35.5); Mean Corpuscular Hemoglobin 31.3 pg (28.0-33.3); Mean Corpuscular Volume 87.6 fL (83.0-100.0); Mean Platelet Volume 10.3 fL (9.4-12.4); Red Blood Count 4.85 M/mcL (4.19-5.50); Red Cell Distribution Width 12.8 % (11.5-14.5)
[2017-03-22 12:01] LABS: INR 1.1; Prothrombin Time 12.2 Seconds (9.4-12.1)
[2017-03-22] MEDS ORDERED: *HR* Heparin 5,000 UNIT/ML VIAL SQ SCH (12:30)
[2017-03-22] MEDS: Heparin 25,000 UNIT/500 ML D5W 25,000 UNIT/500 ML MLS IVC SCH (12:31)
[2017-03-22] MEDS: *HR* OxyCODONE/APAP 5/325 TABLET PO PRN ×2 (12:54→19:08)
[2017-03-22] MEDS ORDERED: *HR* Midazolam HCl 2 MG/2 ML VIAL ONE ×2 (16:03→16:25)
[2017-03-22] MEDS ORDERED: *HR* FentaNYL (PF) 100 MCG/2 ML VIAL ONE (16:04)
[2017-03-22] MEDS ORDERED: Heparin 1,000 UNITS/500 mL NS 500 ML ONE (16:04)
[2017-03-22] MEDS ORDERED: 0.9 % Sodium Chloride 1,000 ML ONE ×2 (16:04→16:20)
[2017-03-22] MEDS ORDERED: Verapamil 5 MG/2 ML VIAL ONE (16:04)
[2017-03-22] MEDS ORDERED: *HR* Heparin 10,000 UNIT/10 ML VIAL ONE (16:05)
[2017-03-22] MEDS ORDERED: Nitroglycerin 1,000 MCG/10 ML VIAL IV ONE (16:05)
--- NOTE | 2017-03-22 16:13 | Pre-Sedation Evaluation ---
Pre-sedation evaluation - Pre-sedation checklist Date of procedure: 03/22/17 Procedure: heart cath Recent Vitals: Last Vital Signs Temp 97.7 F 03/22/17 14:58 Pulse 67 03/22/17 14:58 Resp 17 03/22/17 14:58 BP 147/86 03/22/17 14:58 Pulse Ox 96 03/22/17 14:58 H&P (including ROS) documented in medical record: Yes Previous reaction to sedatives/anesthetics: No Dietary Status: NPO after Midnight Dentition: full dentition ASA Classification *see protocol: CLASS II-Mild systemic disease Plan of Care: Pt appropriate candidate for procedure/moderate/conscious sedation , Risks/benefits of procedure/sedation discussed w/ patient/family
--- NOTE | 2017-03-22 17:13 | Carotid Imaging Report ---
Carotid Duplex Patient Name:Ap Stevens Order Number:[id number] Procedure Date:03/21/2017 Date:1955ge:61 yrs Gender:Male Lt BP:135 / 78 mmHg Rt.BP:133 / 82 mmHgHeart Rate: Location:[facility] Room #: 46 Animal Doctor:Shima Kraus Referring MD:Noman Perrin CNP store associate:Domenica Webb MD Reading MD:Rambo Rand MD Primary Indications:syncopal episodes Risk Factors Yes/No Hypertension Yes Diabetes Yes Hypercholesterolemia Yes Impressions: Findings: Bilateral carotid system has nonstenotic plaque. Recommendations: After imaging the patient returned to their room. Findings Carotid Duplex: Right: The right proximal common carotid artery has a PSV of 100 cm/s and a EDV of 14 cm/s. The right mid common carotid artery has a PSV of 89 cm/s and a EDV of 20 cm/s. The right distal common carotid artery has a PSV of 94 cm/s and a EDV of 24 cm/s. There is nonstenotic plaque in the right bifurcation with a PSV of 81 cm/s and a EDV of 20 cm/s. There is nonstenotic plaque in the right proximal internal carotid artery with a PSV of 93 cm/s and a EDV of 25 cm/s. There is nonstenotic plaque in the right mid internal carotid artery with a PSV of 103 cm/s and a EDV of 33 cm/s. There is nonstenotic plaque in the right distal internal carotid artery with a PSV of 106 cm/s and a EDV of 42 cm/s. The right eca has a PSV of 110 cm/s and a EDV of 8 cm/s. The right vertebral artery has a PSV of 52 cm/s and a EDV of 17 cm/s. Left: The left proximal common carotid artery has a PSV of 110 cm/s and a EDV of 24 cm/s. The left mid common carotid artery has a PSV of 122 cm/s and a EDV of 27 cm/s. The left distal common carotid artery has a PSV of 112 cm/s and a EDV of 22 cm/s. The left bifurcation has a PSV of 95 cm/s and a EDV of 25 cm/s. The left proximal internal carotid artery has a PSV of 67 cm/s and a EDV of 24 cm/s. The left mid internal carotid artery has a PSV of 78 cm/s and a EDV of 28 cm/s. The left distal internal carotid artery has a PSV of 97 cm/s and a EDV of 34 cm/s. The left eca has a PSV of 125 cm/s and a EDV of 16 cm/s. The left vertebral artery has a PSV of 49 cm/s and a EDV of 14 cm/s. Prior Study: No prior study available for comparison. Carotid Results Right PSV EDV Assessment Proximal CCA 100 14 Normal Mid CCA 89 20 Normal Distal CCA 94 24 Normal Bifurcation 81 20 Non Stenotic Plaque Proximal ICA 93 25 Non Stenotic Plaque Mid ICA 103 33 Non Stenotic Plaque Distal ICA 106 42 Non Stenotic Plaque ECA 110 8 Normal Vertebral Artery 52 17 Normal Left PSV EDV Assessment Proximal CCA 110 24 Normal Mid CCA 122 27 Normal Distal CCA 112 22 Normal Bifurcation 95 25 Normal Proximal ICA 67 24 Normal Mid ICA 78 28 Normal Distal ICA 97 34 Normal ECA 125 16 Normal Vertebral Artery 49 14 Normal Ratio's Right ICA/CCA Ratio: 1.19 ICA/CCA Values: 106/89 Left ICA/CCA Ratio: 0.80 ICA/CCA Values: 97/122 Updated by Rambo Rand MD on 03/22/2017 5:08:43 PM electronically signed on 03/22/2017 5:08:54 PM with status of Final
--- NOTE | 2017-03-22 17:34 | Invasive Diagnostic Lab Proc ---
Name: Ap Stevens Date of Study: 03/22/2017 Date: 1955 Ht: 74.0in Medical Record#: [id number] Age: 61 Wt: 257.28lb Gender: Male BSA: 2.42 Order #: [id number] BMI: 33.02 Physicians Procedure Physician: Macario Biggs MD, [facility] Referring MD: Referring MD: Staff Name Position Time In Azul Haynes RN Monitor 04:24 PM Suki Garcia RT (R) Scrub 04:24 PM Rodney Victoria RN Commercial Print Salesman 04:24 PM Azul Haynes RN Commercial Print Salesman 04:28 PM Stephanie Del Cid RN Monitor 04:30 PM Indications Indication Non-Stemi Procedures Performed Procedure L HRT ART/GRFT ANGIO Pre-Procedure Checklist Informed consent is complete signed and on chart. H\\T\\P is on chart. ID band is on and ID verified with patient. Patient NPO for procedure The procedure was described for the patient and questions were answered. Blood Pressure: 143/77 ECG is on chart. Rhythm: SR with BBB Plan of Care Patient will tolerate the procedure without complications. Adequate level of comfort will be maintained. Hemodynamics will remain stable Patient will recover from procedure without complications. Respiratory function will be maintained. Cardiac rhythm will remain stable. Patient temperature will be maintained. Patient and/or family have verbalized understanding of the procedure. Patient Education Chief Complaint/Reason for Test: Cardiac Cath Developmental Category: Geriatric (65+ years) Developmentally Appropriate for Age: Yes Learning Barriers: None Education Needs: Procedure Education Method: Verbal Information Taught: Cardiac Cath Educational Evaluation: Able to repeat information Intravenous Access Time IV Size Location DC'd Fluid/Drip Rate Units RN 04:33 PM 18g 1 11/22" Patent On Arrival Lt Antecubital Allergies No Known Allergies Vital Signs Time BP (mmHg) HR (bpm) O2 Sat. RR (bpm) LOC 04:25 PM / % 5 = Fully awake and oriented or at pre-proc level 04:31 PM / % 4 = Oriented but drowsy 04:31 PM / % 4 = Oriented but drowsy 04:46 PM / % 4 = Oriented but drowsy 05:01 PM / % 4 = Oriented but drowsy 04:32 PM 143 / 77 58 93 % 04:36 PM 154 / 76 60 93 % 13 04:41 PM 151 / 78 60 93 % 19 04:46 PM 153 / 72 58 95 % 27 04:51 PM 148 / 77 58 94 % 14 04:56 PM 152 / 77 59 94 % 20 05:01 PM 157 / 78 58 95 % 14 05:06 PM 159 / 78 59 96 % 15 05:11 PM 155 / 75 59 97 % 19 05:16 PM 162 / 79 60 96 % 12 Procedural Medications Time Medication Dose Units Method Given By 04:25 PM Oxygen 2 L/min nasal cannula Rodney Victoria RN 04:28 PM Versed 3 mg Intravenous Rodney Victoria RN 04:28 PM Fentanyl 50 mcg Intravenous Rodney Victoria RN 04:47 PM Lidocaine 2% 20 ml Subcutaneous Macario Biggs MD, [facility] ASA Classification: CLASS II- Mild systemic disease (i.e. well-controlled diabetes, hypertension, asthma, cigarette smoking) Mathew Score Preprocedure Postprocedure Activity 2- Moves 4 extremities sustained head lift Activity 2- Moves 4 extremities sustained head lift Circulation 2- SBP +/= 20 points of pre-anesthetic level Circulation 2- SBP +/= 20 points of pre-anesthetic level Consciousness 2- Awake and alert oriented x 3 Consciousness 2- Awake and alert oriented x 3 O2 Saturation 2- Able to maintain O2 satruation of 92% on room air O2 Saturation 2- Able to maintain O2 satruation of 92% on room air Respiratory 2- Able to deep breathe and cough well Respiratory 2- Able to deep breathe and cough well Total Score 10 Total Score 10 Contrast Agent: Isovue Diagnostic Contrast: 120 ml Total Contrast: 120 ml Fluoro Dose: 1292 mGy Procedure Log Time Note Enter By 04:14 PM CathStat 04:14 PM Case Start 04:24 PM Pt arrived to company laborer 2 at 16:24 [email or web address] 04:24 PM Azul Haynes RN Position: Monitor Time in: 16:24 [email or web address] 04:24 PM Suik Garcia RT (R) Position: Scrub Time in: 16:24 [email or web address] 04:24 PM Rodney Victoria RN Position: Commercial Print Salesman Time in: 16:24 [email or web address] 04:25 PM Patient charges- Angio tray pack, Navilyst 3mm J, Pulse Oximetry and ACIST tubing and transducer [email or web address] 04:25 PM Hair removed from procedure site in procedure lab using clippers. Bilateral groin prepped with Chloraprep by Rodney Victoria RN, safety strap applied then patient was draped. Skin intact. [email or web address] 04:25 PM Physician arrived 16:25 [email or web address] 04: PM ASA Class CLASS II- Mild systemic disease (i.e. well-controlled diabetes, hypertension, asthma, cigarette smoking) [email or web address] 04:25 PM Meet and laura completed [email or web address] 04:25 PM Sign in performed according to hospital policy. [email or web address] 04:25 PM Procedure start 16: [email or web address] : PM Time: 16: Oxygen on at 2 L/min per nasal cannula by Rodney Victoria RN [email or web address] : PM Time: 16:25 Patient comfortable and pain free: Yes [email or web address] : PM Time: :LOC: 5 = Fully awake and oriented or at pre-proc level [email or web address] 04: PM Clinical Presentation: Unstable angina [email or web address] 04: PM Time: 16:28 Versed 3 mg Intravenous [facility] 04: PM Time: 16:28 Fentanyl 50 mcg Intravenous Given by Rodney Victoria RN [email or web address] 04:29 PM Azul Haynes RN Position: Commercial Print Salesman Time in: 16:28 [email or web address] 04:30 PM Stephanie Del Cid RN Position: Monitor Time in: 16:30 scoates 04:30 PM Vitals capture started with the following parameters, Patient=Adult, Interval=5 min, Initial Lualbssg=204 mmHg, Deflation Rate=5 mmHg, Cuff placed on Left Arm 04:30 PM Time: 16:30 Patient comfortable and pain free: Yes scoates 04:31 PM Time: 16:31LOC: 4 = Oriented but drowsy scoates 04:32 PM HR=58 bpm, HMJO=260/77 mmhg, SpO2=93.0 %, Comment=sr w/bbb 04:36 PM HR=60 bpm, PJXU=044/76 mmhg, SpO2=93.0 %, Resp=13 B/min, Comment=sr w/bbb 04:41 PM HR=60 bpm, GHYR=232/78 mmhg, SpO2=93.0 %, Resp=19 B/min, Comment=sr w/bbb 04:44 PM Pressure channel 1 zeroed. 04:46 PM Time: 16:30 Patient comfortable and pain free: Yes scoates 04:46 PM Time: 16:31LOC: 4 = Oriented but drowsy scoates 04:46 PM HR=58 bpm, KJJK=849/72 mmhg, SpO2=95.0 %, Resp=27 B/min, Comment=sr w/bbb 04:47 PM Clinical Presentation: Non-STEMI scoates 04:47 PM Time out performed according to hospital policy scoates 04:48 PM Time: 16:47 20 ml Lidocaine 2% to right groin Subcutaneous Given by Macario Biggs MD, [facility] scoates 04:49 PM Access obtained by percutaneous puncture. 5Fr 10cm Terumo [place] sheath placed in right Femoral artery. [id number] scoates 04:50 PM Recorded Pressure: Ao, HR=59, Condition=Condition 1 (Aorta) Ao 99/63/78 04:51 PM LCA angiography performed in multiple views. scoates 04:51 PM Catheter removed scoates 04:51 PM 5Fr FR 4 catheter inserted over the wire [facility] scoates 04:51 PM HR=58 bpm, GZRW=831/77 mmhg, SpO2=94.0 %, Resp=14 B/min, Comment=sr w/bbb 04:51 PM RCA angiography performed in multiple views. scoates 04:51 PM Recorded Pressure: Ao, HR=59, Condition=Condition 1 (Aorta) Ao 103/71/86 04:52 PM Coronary Dominance: right scoates 04:54 PM catheter repositioned to the SVG to RPDA scoates 04:54 PM SVG to the RPDA angio performed in multiple views. scoates 04:54 PM Catheter removed scoates 04:54 PM 5Fr LCB catheter inserted over the wire [id number] scoates 04:56 PM Catheter removed scoates 04:56 PM HR=59 bpm, TQHY=871/77 mmhg, SpO2=94.0 %, Resp=20 B/min, Comment=sr w/bbb 04:57 PM 5Fr MPA catheter inserted over the wire [id number] scoates 04:57 PM 0.035 260cm Navilyst 3mmJ wire [id number] scoates 04:57 PM Catheter removed scoates 04:57 PM 5Fr IM catheter inserted over the wire [id number] scoates 05:00 PM Left ANITA to the LAD angio performed in multiple views. scoates 05:01 PM Time: 16:46 Patient comfortable and pain free: Yes scoates 05:01 PM Catheter removed scoates 05:01 PM Time: 16:46LOC: 4 = Oriented but drowsy scoates 05:01 PM HR=58 bpm, JVBG=371/78 mmhg, SpO2=95.0 %, Resp=14 B/min, Comment=sr w/bbb 05:03 PM SVG to the 1st OM angio performed in multiple views. scoates 05:04 PM Recorded Pressure: Ao, HR=58, Condition=Condition 1 (Aorta) Ao 114/73/92 05:05 PM catheter repositioned scoates 05:06 PM HR=59 bpm, KRDE=188/78 mmhg, SpO2=96.0 %, Resp=15 B/min, Comment=sr w/bbb 05:07 PM Catheter removed scoates 05:07 PM 5Fr Radial catheter inserted over the wire [id number] scoates 05:10 PM Bolus angiogram of right Femoral complete: 4 ml/sec for a total of 7 mls scoates 05:10 PM Catheter removed scoates 05:10 PM Procedure completed at 17:10 scoates 05:11 PM Sign out completed: Radiation Dose 1292 mGy Fluoro Time: 8.7 Isovue 370 - 200ml contrast 120 ml given by Macario Biggs MD, [facility]. Complications: NoneCardiac Rehab Consult needed: YesConfirmed administered medications: Yes scoates 05:11 PM HR=59 bpm, MYPG=607/75 mmhg, SpO2=97.0 %, Resp=19 B/min 05:12 PM Lesion found in Proximal LAD. Pre Stenosis: 99 Pre APARNA Flow: scoates 05:12 PM Lesion found in Proximal Circumflex. Pre Stenosis: 100 Pre APARNA Flow: scoates 05:12 PM Lesion found in Mid RCA. Pre Stenosis: 90 Pre APARNA Flow: scoates 05:12 PM Lesion found in Right PDA. Pre Stenosis: 100 Pre APARNA Flow: scoates 05:12 PM Lesion found in Distal RCA. Pre Stenosis: 90 Pre APARNA Flow: scoates 05:13 PM Lesion found in Mid LAD. Pre Stenosis: 100 Pre APARNA Flow: scoates 05:13 PM Proximal Left Anterior Descending Coronary Artery with 99% stenosis. If graft is supplying this territory, 0 % stenosis. scoates 05:13 PM Mid/Distal Left Anterior Descending Coronary Artery and diagonal branches with 100% stenosis. If graft is supplying this area, 0 % stenosis scoates 05:13 PM Circumflex, Obtuse Marginal, Left Posterior Descending, and Left Posterolateral Coronary Arteries with 100 % stenosis. If graft is supplying this area, 0 % stenosis scoates 05:13 PM Right Coronary, Right Posterior Descending Arteries with Right Posterolateral and Acute Marginal branches with 90 % stenosis. If graft is supplying this area, 0 % stenosis scoates 05:15 PM Isovue 370 - 200ml,1 Bottle(s) used. scoates 05:15 PM Arterial sheath pulled, Mynx closure device used and was Successful S/N. scoates 05:15 PM Post ECG Sr with BBB scoates 05:15 PM Post Blood Pressure 155/75 scoates 05:15 PM 17:15 Post Pulses Bilateral DP \\T\\ PT 2+ scoates 05:16 PM Time: 17:01 Patient comfortable and pain free: Yes scoates 05:16 PM Information taught Cardiac Cath and Mynx scoates 05:16 PM Education needs Procedure, Plan of Care, and Responsibilities of Patient in Care scoates 05:16 PM HR=60 bpm, RRCZ=757/79 mmhg, SpO2=96.0 %, Resp=12 B/min 05:16 PM Time: 17:01LOC: 4 = Oriented but drowsy scoates 05:16 PM Learning barriers :None scoates 05:16 PM Education Methods Verbal scoates 05:18 PM Education evaluation Able to repeat information scoates 05:18 PM Site status No bleeding/hematoma - Rt Groin as reported by Rodney Victoria RN at 17:18 scoates 05:18 PM Opsite applied scoates 05:18 PM Plavix, Effient or Brilinta given No scoates 05:18 PM Delay to floor No scoates 05:18 PM Family placed in consult room. scoates 05:18 PM Complications: None scoates 05:19 PM Fluoro Time: 8.7 scoates 05:20 PM Isovue 370 - 200ml contrast 120 ml given by Macario Biggs MD, [facility]. scoates 05:20 PM Radiation Dose 1292 mGy scoates 05:24 PM Report given to Suzi MARIEE Pt taken to Room #46. 17:24 scoates Complications Complication None None Hemodynamics Pressures Site Systolic/A Wave Diastolic/V Wave Mean AO 99 63 78 AO 103 71 86 AO 114 73 92 Post Procedure Information Blood Pressure: 155/75 mmHg Rhythm: Sr with BBB Post procedural instructions were given Closure Device Time Device Success/Fail 03/22/2017 5:16:00 PM MynxGrip Successful Site Checks Time Location Status Staff Sheath In? Note 05:18 PM Rt Groin No bleeding/hematoma Rodney Victoria RN Pulses Time Site Pre-Procedure Post-Procedure Note 03/22/2017 4:33:00 PM Bilateral DP \\T\\ PT 2+ 03/22/2017 4:33:00 PM Bilateral radial 2+ 5:15:00 PM Bilateral DP \\T\\ PT 2+ Updated by Stephanie Dean RN on 03/22/2017 5:27:39 PM electronically signed on 03/22/2017 5:29:00 PM with status of Final
[2017-03-22] MEDS ORDERED: *HR* Warfarin 10 MG TABLET PO ONE (18:00)
--- NOTE | 2017-03-22 19:23 | Internal Med Progress Note ---
Date of Encounter: 03/22/17 Time of Encounter: 19:00 - Assessment and plan (1) Chest pain Current Visit: Yes Status: Resolved Assessment and plan: Patient currently denies chest pain or shortness of breath. Chest x-ray negative. CTA negative for PE. Echocardiogram revealing a thrombus to the left ventricle apical area. Patient was placed on Coumadin with a heparin bridge. Cardiology was brought on board who performed a left heart catheter. Per report (official cardiac cath rn report not yet available) no interventions were indicated. Appreciate cardiology recommendations on whether or not the patient needs to be therapeutic on Coumadin prior to discharge. We will observe overnight. ITS Impressions Chest X-Ray 03/21/17 10:12 IMPRESSION: No active cardiopulmonary disease D/ / Gm Kumar MD / Gm Kumar MD Interpreting Provider: Gm Kumar MD Chest CTA 03/21/17 15:26 IMPRESSION: 1. No evidence of acute pulmonary embolism. 2. Cardiomegaly. Status post CABG. 3. Bibasilar atelectasis. 4. Cholelithiasis. D/ / Johnna Nam MD / Johnna Nam MD Interpreting Provider: Johnna Nam MD Carotid duplex impressions: Bilateral carotid system has nonstenotic plaque. Echocardiogram with imaging enhancement agent impressions: Technically suboptimal due to poor echocardiographic windows. Echo contrast was used. Moderate LV systolic dysfunction, LVEF 35-40%. There are regional wall motion abnormalities. The LV apex is akinetic with a small LV apical thrombus. Moderate left ventricular diastolic dysfunction. Normal right ventricular size and function. Unable to estimate RVSP due to lack of TR jet. No significant valvular dysfunction. Qualifiers: Chest pain type: unspecified Qualified Code(s): R07.9 - Chest pain, unspecified (2) Left ventricular apical thrombus Current Visit: Yes Status: Resolved Assessment and plan: Per verbal report, not noted on left heart catheter. (3) Hyperlipidemia Current Visit: Yes Status: Chronic Assessment and plan: Lipid panel unremarkable. Recommend continue statin and low-cholesterol diet. Qualifiers: Hyperlipidemia type: unspecified Qualified Code(s): E78.5 - Hyperlipidemia , unspecified (4) Hypertension Current Visit: Yes Status: Chronic Assessment and plan: Controlled. His home medications of lisinopril 5 mg daily, carvedilol 6.25 mg twice a day have been continued Qualifiers: Hypertension type: essential hypertension Qualified Code(s): I10 - Essential (primary) hypertension (5) Diabetic neuropathy Current Visit: Yes Status: Chronic Assessment and plan: Continue gabapentin. Qualifiers: Diabetes mellitus type: type 2 Diabetes mellitus complication detail: diabetic polyneuropathy Qualified Code(s): E11.42 - Type 2 diabetes mellitus with diabetic polyneuropathy (6) DVT prophylaxis Current Visit: Yes Status: Acute Assessment and plan: Placed on Coumadin with a heparin bridge. - Subjective Interval history: Patient seen and examined shortly after his return from the catheter lab. On examination, patient alert and oriented 3 and currently complains of his chronic knee and back pain and denies any chest pain, headache, shortness of breath. - Constitutional Vitals: Temp Pulse Resp BP Pulse Ox 97.7 F 62 16 133/76 95 03/22/17 14:58 03/22/17 18:26 03/22/17 18:26 03/22/17 18:26 03/22/17 18:26 General appearance: Present: cooperative, A&O X 3, pleasant, no acute distress, obese, answers questions appropriately - Head Head exam: Present: atraumatic, normocephalic - Eye Eye exam: Present: PERRL, conjuntiva pink, sclera anicteric Pupils: Present: PERRL - Neck Neck exam general surgery: Present: supple, trachea midline. Absent: lymphadenopathy - Respiratory Respiratory exam: Present: CTAB. Absent: accessory muscle use, rales, respiratory distress, rhonchi, wheezes - Cardiovascular Cardiovascular exam: Present: RRR, +S1, +S2. Absent: diastolic murmur, gallop, rubs, systolic murmur - GI/Abdominal GI/Abdominal exam: Present: normal bowel sounds, soft, no peritoneal signs. Absent: distended, tenderness - Extremities Exam Extremities exam: Present: warm, radial pulses palpable and symetrical. Absent : calf tenderness, cyanotic, pedal edema - Neurological Exam Neurological exam: Present: alert, CN II-XII intact, oriented X3, no focal deficits, strengths equal and symetr throughout. Absent: pronater drift, facial droop, speech deficit - Skin Skin exam: Present: dry, intact, normal color, warm Internal Medicine: Result - Labs CBC & Chem 7: 03/22/17 11:42 03/22/17 03:20 Labs: Short CBC 03/22/17 03/22/17 Range/Units 03:20 11:42 WBC 8.4 7.2 (4.3-11.1) K/mcL Hgb 14.7 15.2 (12.9-16.9) g/dL Hct 41.4 42.5 (37.5-50.1) % Plt Count 122 L 130 L (140-400) K/mcL Neutrophils # 4.9 (1.6-8.9) K/mcL BMP 03/22/17 03:20 Sodium 138 Potassium 3.7 Chloride 102 Carbon Dioxide 26 BUN 16 Creatinine 0.82 Glucose 180 H Calcium 9.1 Cardiac Enzymes 03/21/17 Range/Units 21:53 Troponin I 0.03 (0-0.03) ng/mL Liver Function 03/22/17 Range/Units 03:20 Total Bilirubin 1.0 (0.2-1.2) mg/dL AST 20 (5-34) Units/L ALT 25 (0-55) Units/L Alkaline Phosphatase 67 (38-126) Units/L Albumin 3.7 (3.5-5.0) g/dL - ABG Interpretation ABG results: PT/INR, D-dimer PT 12.2 Seconds (9.4-12.1) H 03/22/17 11:42 - Impressions Impressions Chest CTA 03/21/17 15:26 IMPRESSION: 1. No evidence of acute pulmonary embolism. 2. Cardiomegaly. Status post CABG. 3. Bibasilar atelectasis. 4. Cholelithiasis. D/ / Johnna Nam MD / Johnna Nam MD Interpreting Provider: Johnna Nam MD Consult Discharge Plan - Plan Referrals: Domenica Webb MD [Primary Care Provider] - 04/03/17 11:00 am
[2017-03-23] MEDS: Heparin 25,000 UNIT/500 ML D5W 25,000 UNIT/500 ML MLS IVC SCH (01:44)
[2017-03-23 05:18] LABS: INR 1.1; Prothrombin Time 11.8 Seconds (9.4-12.1)
[2017-03-23] MEDS: Gabapentin 400 MG CAPSULE PO SCH ×2 (08:20→14:33)
[2017-03-23] MEDS: Aspirin 81 MG TAB.CHEW PO SCH (08:20)
[2017-03-23] MEDS: *HR* OxyCODONE/APAP 5/325 TABLET PO PRN (08:20)
[2017-03-23] MEDS: Multivit/Ca/Min/Fe/FA 1 TAB TABLET PO SCH (08:20)
[2017-03-23] MEDS: Insulin LISPRO 300 UNITS/3 ML VIAL SQ SCH ×3 (08:21→11:36)
[2017-03-23] MEDS: Magnesium Oxide 400 MG TABLET PO SCH (08:21)
[2017-03-23] MEDS: (Armodafinil [Nuvigil] 250 MG) PO SCH (08:21)
[2017-03-23 08:59] LABS: Hemoglobin A1C 8.4 %
[2017-03-23] MEDS ORDERED: Insulin DETEMIR 100 UNIT/ML X5UNITS SQ SCH (09:00)
--- NOTE | 2017-03-23 10:10 | Nuclear Medicine Stress Report ---
Single NUC read Name: Ap Stevens Date of Study: 03/22/2017 Date: 1955 Ht: 74.0 in Medical Record#: [id number] Age: 61 Wt: 256.0 lb Gender: Male Order #: [id number] Location: [facility] Room: Reading Physician: Derrek Milner DO, FACC, FASNC Ordering Physician: Chaz Tilley DO Vp [employer] Partnerships: Amandeep Barrios Impression: Medium to large sized, moderate to severe intensity defect in the mid anterior, all apical, and apex segments. Stress imaging was not obtained. Cardiac catheterization recommended by the cardiology service. Nuclear Summary: SPECT myocardial perfusion imaging using Tc99m Sestamibi given intravenously was performed at rest and following cardiac stress testing. The resting images were obtained following initial dose of 10.0 mCi. Findings: Anterior Perfusion Rest * The mid anterior, all apical, and apex segments demonstrate a moderate to severe intensity defect. Updated by Derrek Milner DO, FACC, FASE, FASNC on 03/23/2017 10:02:29 AM electronically signed on 03/23/2017 10:03:59 AM with status of Final
--- NOTE | 2017-03-23 11:05 | Cardiology Progress Note ---
<Chaz Tilley - Last Filed: 03/23/17 11:00> Date of Encounter: 03/23/17 Time of Encounter: 11:09 Assessment and Plan (1) Left ventricular apical thrombus Current Visit: Yes Status: Resolved LV apical thrombus seen on echo Likely secondary to diminished apical wall motion Will anticoagulate with lovenox bridge and place on coumadin Will be OK to discharge with lovenox bridge and coumadin clinic follow up Will need to follow up with cardiology and repeat INR on Sunday (2) Chest pain Current Visit: Yes Status: Resolved CABG in 2003, LHC in 2008 without stents Sudden onset of CP this afternoon with complete resolution after a single nitroglycerin and aspirin. EKG reviewed which demonstrates old LBBB. No acute changes seen. Currently asymptomatic Troponin x3 negative Echo shows decrease in EF and addition of mild wall motion abnormalities, but more significantly a LV apical thrombus No intervention needed in [facility] Qualifiers: Chest pain type: unspecified Qualified Code(s): R07.9 - Chest pain, unspecified Discussion w patient/family: The assessment and plan as outlined above was discussed with the patient and/or family members who expressed understanding and agreement. All questions were answered. Thank you for involving us in the care of your patient. Please call with any questions. Subjective Interval history: No new events overnight. No interventions needed on heart cath. He is anxious to go home. No CP or dyspnea overnight. No new symptoms. Objective Vital Signs, Last 4 Hours Temp Pulse Resp BP Pulse Ox 03/23/17 07:29 97.5 F L 64 16 134/76 93 General: Conversant HEENT: Atraumatic Neck: No JVD Cardiac: Reg Rate and Rhythm, Normal S1 and S2 Lungs: Normal Breath Sounds, No Wheeze, Rales, Rhonchi Neuro: Alert and responsive Abdomen: Soft Skin: No rashes noted on visualized skin Extremities: No Edema, Normal Pulses Results 03/22/17 11:42 03/22/17 03:20 Lab Results 03/22/17 03/22/17 03/22/17 11:42 11:42 11:42 WBC 7.2 Hgb 15.2 Hct 42.5 Plt Count 130 L INR 1.1 APTT 28.0 03/22/17 03/23/17 03/23/17 19:47 04:40 07:44 WBC Hgb Hct Plt Count INR 1.1 APTT 28.1 Cancelled 53.6 H D Consult Discharge Plan - Plan Additional Instructions: F/up with Coumadin clinic in 3-5 days F/up with [facility] as scheduled Referrals: Coumadin, Clinic [Other] - 03/28/17 4:15 pm (Bring a list of medications, Photo ID, insurance card, and bottle of warfarin. Your first appointment will be about an hour long. ) Domenica Webb MD [Primary Care Provider] - 04/03/17 11:00 am Prescriptions: Enoxaparin [Lovenox] 120 mg SQ Q12H #14 syringe Warfarin [Coumadin] 5 mg PO DAILY@1800 #20 tablet <Carolina Lackey - Last Filed: 03/23/17 14:39> Date of Encounter: 03/23/17 Assessment and Plan Discussion w patient/family: I examined this patient and my medical decision-making was reviewed with the RN MDS/PA/Advanced Practice Nurse/Resident Physician. I agree with the documented findings, disposition and treatment plan. Mr. Steevns had no intervention on cath yesterday. He is feeling well today without new complaint. Recommend continuing BB, ACEI which can be uptitrated as an outpatient and will remain on statin therapy. He will be bridged with lovenox to coumadin for LV thrombus and remain on antiplatelet therapy. Lovenox teaching has been provided to him. He has been set up with the coumadin clinic in [place] and was instructed to have INR drawn this SundayMarch 26. Triple therapy can be discussed in greater detail as an outpatient with his primary rehab trainer. He states he has an appointment on 04/03/2017. He expressed understanding of the plan of care and was in agreement. We will sign off. Please call with questions. Objective Vital Signs, Last 4 Hours Temp Pulse Resp BP Pulse Ox 03/23/17 11:28 97.5 F L 61 16 147/87 96 Results 03/22/17 11:42 03/22/17 03:20 Lab Results 03/22/17 03/23/17 03/23/17 19:47 04:40 07:44 INR 1.1 APTT 28.1 Cancelled 53.6 H D
[2017-03-23] MEDS ORDERED: *HR* Enoxaparin 120 MG/0.8 ML SYRINGE SQ SCH (11:07)
[2017-03-23 11:33] VITALS: BP 147/87
--- NOTE | 2017-03-23 14:12 | Discharge Summary ---
Date of Encounter: 03/23/17 Time of Encounter: 12:30 - Discharge Diagnosis (1) Left ventricular apical thrombus Priority: Primary Status: Acute (2) Chest pain Priority: Primary Status: Resolved Qualifiers: Chest pain type: unspecified Qualified Code(s): R07.9 - Chest pain, unspecified (3) CAD (coronary artery disease) Priority: Secondary Status: Chronic Qualifiers: Coronary Disease-Associated Artery/Lesion type: bypass graft [place] vs. transplanted heart: [place] heart Associated angina: without angina Qualified Code(s): I25.810 - Atherosclerosis of coronary artery bypass graft(s) without angina pectoris (4) Diabetes mellitus Priority: Secondary Status: Chronic Qualifiers: Diabetes mellitus type: type 2 Diabetes mellitus complication status: with hyperglycemia Diabetes mellitus alf insulin use: without alf use Qualified Code(s): E11.65 - Type 2 diabetes mellitus with hyperglycemia (5) Hyperlipidemia Priority: Secondary Status: Chronic Qualifiers: Hyperlipidemia type: unspecified Qualified Code(s): E78.5 - Hyperlipidemia , unspecified (6) Hypertension Priority: Secondary Status: Chronic Qualifiers: Hypertension type: essential hypertension Qualified Code(s): I10 - Essential (primary) hypertension - Discharge Medications Prescriptions: Enoxaparin [Lovenox] 120 mg SQ Q12H #14 syringe Warfarin [Coumadin] 5 mg PO DAILY@1800 #20 tablet Home Medications: Armodafinil [Nuvigil] 250 mg PO DAILY 03/21/17 [History] Aspirin 81 mg PO DAILY 03/21/17 [History] Carvedilol [Coreg] 6.25 mg PO BIDWM 03/21/17 [History] Clopidogrel [Plavix] 75 mg PO DAILY 03/21/17 [History] Gabapentin [Neurontin] 800 mg PO TID 03/21/17 [History] Glimepiride [Amaryl] 2 mg PO QAM 03/21/17 [History] Lisinopril [Zestril] 5 mg PO DAILY 03/21/17 [History] Magnesium Oxide [Mgo] 400 mg PO DAILY 03/21/17 [History] Metformin HCl [Glucophage] 1,000 mg PO BID 03/21/17 [History] Multivits,Ca,Min/Iron/FA/Lycop [Centrum Men's Tablet] 1 tab PO DAILY 03/21/17 [ History] Nitroglycerin [Nitrostat] 0.4 mg SL AD PRN 03/21/17 [History] OxyCODONE/APAP 5/325 [Percocet 5/325 MG] 1 tab PO Q6HR PRN 03/21/17 [History] Simvastatin [Zocor] 40 mg PO HS 03/21/17 [History] Zolpidem [Ambien] 10 mg PO HS 03/21/17 [History] Enoxaparin [Lovenox] 120 mg SQ Q12H #14 syringe 03/23/17 [Rx] Warfarin [Coumadin] 5 mg PO DAILY@1800 #20 tablet 03/23/17 [Rx] Allergies/Adverse Reactions: Allergies No Known Allergies Allergy (Verified 03/21/17 12:10) Procedures/tests Complete & Pending: Procedures Performed prior 72 hours Category Date Time Status CTA chest [CT angio chest] [CT] Routine Cat Scan 03/21/17 15:26 Completed CL Cardiac Catheterization [CL] Routine Scrap Kettle Tender 03/22/17 14:59 Ordered NM prudence perf SPECT single [NM] Routine Exams 03/22/17 08:33 Taken EV carotid duplex imaging BI Routine Y 03/21/17 12:50 Completed EV echocardiogram w enhance Routine Y 03/22/17 16:01 Completed Date of admission: 03/21/17 12:39 Primary care physician: Domenica Webb, Consults: 03/21/17 13:23 Consult to Cardiology [CONS] Routine Comment: Consulting Provider: Card[facility] Reason for Consult: CHEST PAIN Call Completed: No 03/21/17 19:38 Consult to Educational Assistant Teacher [CONS] Routine Comment: Reason for Consult: Patient is experiencing diabetic neuropathy bilaterally in lower legs and feet. 03/23/17 12:25 Consult to Care Clinician [CONS] Routine Reason for SW Consult: Lovenox andrade check, insurance does not cover glucose test strips Discharging clinician: Susie Hodgson Anticipated date of discharge: 03/23/17 - Patient Status Disposition: Home, Self-Care Condition: Good Functional capacity at discharge: independent ambulation Overall status at discharge: patient is progressing back to baseline - Discharge Instructions Instructions: Warfarin (By mouth), Enoxaparin (Injection), How to Give a Subcutaneous Injection (DC), How to Give a Subcutaneous Injection (GEN) Follow Up With: Coumadin, Clinic [Other] - 03/28/17 4:15 pm (Bring a list of medications, Photo ID, insurance card, and bottle of warfarin. Your first appointment will be about an hour long. ) Domenica Webb MD [Primary Care Provider] - 04/03/17 11:00 am Additional Instructions: F/up with Coumadin clinic in 3-5 days F/up with [facility] as scheduled Follow-up appointments: If there is not an appointment listed below, please call your physician and schedule a follow-up appointment. If you have congestive heart failure and your symptoms return, make an appointment with your physician. Medication List: Carry an up to date list of medications you are taking at all time. We have given you an updated medication list including any new medications that you have been prescribed. Please provide that list to your primary provider Symptoms: If your condition changes or you experience any of the following symptoms, notify your physician immediately: Unusual or worsening pain, fever, persistent nausea and vomiting, bleeding, increase in swelling (especially in your legs), sudden weight gain, extreme dizziness, chest pain, increased drainage or redness from a wound or incision. Go to the emergency department if you experience a problem with breathing. Weights: If you have a history of swelling or shortness of breath, weigh yourself daily and notify your physician if you have a weight gain of two or more pounds in one day or 5 or more pounds in a week. If you experience any of the warning signs for stroke: Sudden numbness or weakness of the face, arm or leg; especially on one side of the body, sudden confusion, trouble speaking or understanding, sudden trouble seeing in one or both eyes, sudden trouble walking, dizziness, loss of balance or coordination, sudden sever headache with no cause; Call 911 or go to the emergency room. Stroke is a medical emergency. Some risk factors for stroke: Age, cigarette smoking, diabetes, excessive alcohol consumption, family history , high blood pressure, overweight, physical inactivity, prior stroke, heart attack, diagnosis of carotid artery stenosis or other artery disease. If you smoke, STOP: Smoking or tobacco use significantly increases your risk of heart and lung disease. Your chance of disease greatly increases if you continue to smoke. For more information, call the [place] tobacco quit line for smoking cessation QUIT-NOW ( ) - Diet and Activity Activity: resume usual activities as tolerated Diet: diabetic diet, low fat, low cholesterol, low salt diet Hospital course: Mr. Stevens is a 61 year old male with history of CAD status post CABG, hypertension, diabetes who was admitted with chest pain. Initial EKG, labs and chest x-ray showed no acute abnormality. CT angiogram of chest was done which showed no evidence of pulmonary embolism. Telemetry monitoring and serial troponins were negative. Cardiology was consulted and recommend stress test and echocardiogram. Echocardiogram showed moderate left ventricular systolic dysfunction with 35-40% ejection fraction and regional wall motion abnormalities , left ventricular apex is akinetic with LV apical thrombus, moderate left ventricular diastolic dysfunction. Stress test was done which showed moderate to severe intensity fixed defect involving LV apex but stress imaging was not done as cardiology recommended left heart catheterization due to LV thrombus. Cardiac catheterization showed patent grafts and no intervention was recommended. He has been started on anticoagulation with IV heparin drip and is currently stable for discharge on Lovenox bridging and Coumadin. airfield services officer was consulted and andrade check for Lovenox was completed. Patient was also noted to have hyperglycemia with hemoglobin A1c of 8.4%. He seems to be noncompliant with diet and medications and reports that his insurance does not cover blood glucose test strips and so he stopped checking his blood glucose and only takes his metformin intermittently. He has received insulin as an inpatient, however is reluctant to being started on it as an outpatient. He claims that subcutaneous insulin has actually made his blood sugars to trend up rather than down. so he is encouraged to discuss this with his primary care provider. He is otherwise medically stable for discharge. - Time Spent with Patient Total time spent providing and/or coordinating discharge services: Greater than 30 minutes (50 min) - Constitutional Vitals: Temp Pulse Resp BP Pulse Ox 97.5 F L 61 16 147/87 96 03/23/17 11:28 03/23/17 11:28 03/23/17 11:28 03/23/17 11:28 03/23/17 11:28 General appearance: Present: cooperative, A&O X 3, answers questions appropriately - Respiratory Respiratory exam: Present: CTAB. Absent: accessory muscle use, rales, rhonchi, wheezes - Cardiovascular Cardiovascular exam: Present: RRR, +S1, +S2. Absent: diastolic murmur, gallop, rubs, systolic murmur
[2017-03-23] MEDS ORDERED: *HR* Warfarin 5 MG TABLET PO SCH (18:00)
[2017-03-23] MEDS ORDERED: Insulin LISPRO 300 UNITS/3 ML VIAL SQ SCH (21:00)
--- NOTE | 2017-03-24 07:50 | Event Note ---
Date of Encounter: 03/22/17 Time of Encounter: 17:00 - Cardiology Event Note 4/4 patent bypasses with ever [place] disease. No LVgram secondary to lv thrombus. No targets for revascularization.
--- NOTE | 2017-03-24 08:12 | Invasive Diagnostic Lab ---
Name: Ap Stevens Date of Study: 03/22/2017 Date: 1955 Ht: 188.0 cm /74.0 in Medical Record#: [id number] Age: 61 Wt: 116.7 kg / 257.28 lb Account/Order#: [id number] Gender: Male BSA: 2.42 Order #: [id number] Fluoro Dose: 1292 mGy BMI: 33.02 Procedure Physician: Macario Biggs MD, FACC Referring MD: Referring MD: Procedures Performed: Selective coronary angiography Bypass study Iliofemoral angiography Indications: Non-Stemi Impressions: There is severe three vessel coronary artery disease. S/P CABG 4 of 4 patent bypass grafts. Recommendations: Optimal medical therapy of patient's disease. Aggressive risk factor modification. Patient being referred for cardiac rehab. History/Risk Factors: right Arm stent Diabetes Hypertension Procedure Access obtained in the right Femoral artery by percutaneous puncture Complications: None, None Contrast: Isovue 120ml Closure Device: MynxGrip Hemodynamics: Pressures Site Systolic/ A Wave Diastolic/ V Wave End Diastolic/ Mean HR AO 99 63 78 59 AO 103 71 86 59 AO 114 73 92 58 Coronary Dominance: right Lesion Findings/Interventions * Left Main Coronary Artery The LMCA is angiographically free of disease. * Left Anterior Descending There is a 100% stenosis in the Proximal LAD. There is a 99% stenosis in the Mid LAD. * Circumflex There is a 100% stenosis in the Proximal Circumflex. * Right Coronary Artery There is a 90% stenosis in the Mid RCA. There is a 90% stenosis in the Distal RCA. There is a 100% stenosis in the Right PDA. Additional Findings: Grafts * The saphenous vein graft to the Right PDA is patent. APARNA flow is 3. * The left internal mammary graft to the Mid LAD is patent. APARNA flow is 3. * The saphenous vein graft to the 1st Marginal is patent. APARNA flow is 3. * The saphenous vein graft to the 1st Diagonal is patent. APARNA flow is 3 . Visualized portion of the right iliofemoral artery show no significant disease and appropriate sheath placement. Updated by Stephanie Dean RN on 03/22/2017 5:24:20 PM Macario Biggs MD, FACC electronically signed on 03/24/2017 8:06:28 AM with status of Final
== END 2017-03-23 14:52 | disposition home or self-care (01) | DRG 287 ==
LOC: 3BNU 10:05 → EMEROO 10:05 → SUATTDRO 12:39 → 3BNU 12:41
PROVIDERS: ADMIT Hospitalist; ATTEND Internal Medicine

== ENCOUNTER 2018-10-19 03:37 | Observation (INO) ==
--- NOTE | 2018-10-19 04:41 | Emergency Department Note ---
Disposition Clinical Impression: Gallstones Atrial flutter Qualifiers: Atrial flutter type: unspecified Qualified Code(s): I48.92 - Unspecified atrial flutter Right lumbar pain Qualifiers: Chronicity: acute Sciatica presence: without sciatica Qualified Code(s): M54.5 - Low back pain Disposition: Admitted As Inpatient Condition: Good Referrals: NONE,PCP [Primary Care Provider] - Forms: ED Satisfaction Letter Time of Disposition: 06:16 General Adult HPI - General Chief complaint: ED Back Pain/Injury Stated complaint: Back pain right side. Knot? Time Seen by Provider: 10/19/18 03:46 Source: patient Limitations: no limitations Nursing Notes Reviewed: Yes Vital Signs Reviewed: Yes - History of Present Illness HPI Narrative: 62-year-old male diabetic presents with right lumbar pain 2 weeks, has been worsening tonight. Worse with movement, deep inspiration. Nothing is making it better. He does describe a urethral stent, but denies any difficulty urinating and urinary incontinence. He mentions that he had lifted some heavy weights earlier this week, but states that his pain has been bothering him even before that. Other than that he denies any injury or trauma. He mentions he is on warfarin, or history of ventricular thrombus, but denies any issues with taking the medicines, or with his INR lab tests. He mentions he has had some intermittent diarrhea, otherwise denies any recent changes in his stool. He denies any migration or radiation, abdominal pain, near syncopal symptoms, numbness tingling or weakness, fevers.. Pain Scale: 8 - Related Data Home Medications Medication Instructions Recorded Confirmed Armodafinil [Nuvigil] 250 mg PO DAILY 03/21/17 03/21/17 Carvedilol [Coreg] 6.25 mg PO BIDWM 03/21/17 03/21/17 Clopidogrel [Plavix] 75 mg PO DAILY 03/21/17 03/21/17 Gabapentin [Neurontin] 800 mg PO TID 03/21/17 03/21/17 Glimepiride [Amaryl] 2 mg PO QAM 03/21/17 03/21/17 Magnesium Oxide [Mgo] 400 mg PO DAILY 03/21/17 03/21/17 Metformin HCl [Glucophage] 1,000 mg PO BID 03/21/17 03/21/17 Multivits,Ca,Min/Iron/FA/Lycop 1 tab PO DAILY 03/21/17 03/21/17 [Centrum Men's Tablet] Nitroglycerin [Nitrostat] 0.4 mg SL AD PRN 03/21/17 03/21/17 OxyCODONE/APAP 5/325 [Percocet 1 tab PO Q6HR PRN 03/21/17 03/21/17 5/325 MG] Simvastatin [Zocor] 40 mg PO HS 03/21/17 03/21/17 Zolpidem [Ambien] 10 mg PO HS 03/21/17 03/21/17 Furosemide [Lasix] 20 mg PO 11/29/17 Losartan [Cozaar] 25 mg PO 11/29/17 Previous Rx's Medication Instructions Recorded Warfarin [Coumadin] 5 mg PO DAILY@1800 #20 tablet 03/23/17 Albuterol Sulfate [Albuterol 2 puff IH QID #1 inhaler 11/29/17 Inhaler] Benzonatate [Tessalon] 200 mg PO TID PRN #20 capsule 11/29/17 Clindamycin HCl 300 mg PO TID #30 capsule 11/29/17 Allergies Allergy/AdvReac Type Severity Reaction Status Date / Time No Known Allergies Allergy Verified 11/29/17 10:00 All systems ED: reviewed and negative except as stated. Review of Systems: As Per HPI Constitutional: Denies: fever, chills Eyes: Denies: vision change ENT ED: Denies: throat pain Cardiovascular: Denies: chest pain, palpitations, dyspnea on exertion Respiratory: Denies: dyspnea Gastrointestinal: Reports: as per HPI. Denies: abdominal pain, nausea, vomiting Genitourinary: Reports: as per HPI. Denies: hematuria, discharge, testicular pain Musculoskeletal: Reports: as per HPI. Denies: neck pain Integumentary: Denies: rash Neurological: Denies: headache, weakness, numbness, paresthesias Endocrine: Denies: fatigue Hematological/Lymphatic: Denies: easy bleeding Allergic/Immunologic: Denies: facial swelling Past Medical History - Past Medical History Medical history: Reports: diabetes, hyperlipidemia, hypertension, myocardial infarction Surgical history: Reports: coronary bypass (CABG), other (Patient reports having a scope of the right knee, two back surgeries, and Lasix surgery on his eyes.) Psychiatric history: Reports: no psych history - Social History Smoking Status: Never smoker Smokeless Tobacco Status: No Alcohol use: Reports: none Drug use: Reports: none Physical Exam - General Limitations: no limitations General appearance: alert, in no apparent distress - Head Head exam: normocephalic - Eye Eye exam: Present: EOMI. Absent: conjunctival injection - ENT ENT exam: normal oropharynx, mucous membranes moist - Neck Neck exam: Present: full ROM - Chest Chest inspection: Present: normal inspection, symmetric chest wall rise - Respiratory Respiratory exam: Present: normal lung sounds bilaterally. Absent: respiratory distress, wheezes, stridor - Cardiovascular Cardiovascular exam: Present: regular rate, normal rhythm - Abdominal Exam Abdominal exam: Present: soft, Non-Tender. Absent: tenderness, distention, guarding, rebound - Extremities Exam Extremities exam: Present: normal inspection, full ROM, normal capillary refill - Back Exam Back exam: Present: full ROM, tenderness (right lumbar). Absent: CVA tenderness (R), CVA tenderness (L), muscle spasm, paraspinal tenderness, vertebral tenderness, sciatic notch tenderness (L), straight leg raise (R), straight leg raise (L) - Neurological Exam Neurological exam: Present: alert, oriented X3 - Psychiatric Psychiatric exam: Present: normal affect, normal mood - Skin Skin exam: Present: warm, dry, intact, normal color. Absent: rash, cyanosis, diaphoresis Course Course Narrative: 62-year-old male diabetic, currently on Coumadin therapy for history of ventricular thrombosis presents with complaint of right lumbar pain had worsened earlier today. He states has been persisting for 2 weeks. Denies any new bowel or bladder symptoms, trauma, radiation, or migration. Vitals HR 47, and slightly hypertensive. Pt denies any chest pain, lighth eadedness, near syncope. On exam no gross focal neurological deficits. Distal pulses equally bila terally, sensation intact equal bilaterally. No abdominal tenderness. No midline lumbar tenderness. Mild bilateral lower extremity edema. Discussed with Dr. Solares who also had facetime with patient. advised or workup including UA, bloodwork, and non contrast CT abd/pelvis, anticoagulation concern for retroperiotneal bleed. - Reevaluation(s) Reevaluation #1: Patient's CT abdominal pelvic scan shows no evidence of nephroureterolithiasis or hydronephrosis. Does have cholelithiasis with no evidence of cholecystitis, and lumbar spondylosis. His hemoglobin has slightly decreased at 12.7 from previous reading on file from 2017. Hemoccult was negative, and patient denies any melena or excessive bleeding. Patient initially had a heart rate of 47, that appeared to be irregular on the bedside monitor, does show atrial flutter, with heart rate of 43. On examination, patient denies any chest pain shortness of breath or syncopal symptoms, palpitations, or syncope. Patient's skin discussed with Dr. Solares, we will plan for admission for atrial flutter and decreased ventricular rate. Time: 06:09 Vital Signs Temperature 97.6 F 10/19/18 03:43 Pulse Rate 46 10/19/18 03:43 Respiratory Rate 18 10/19/18 03:43 Blood Pressure 170/77 10/19/18 03:43 O2 Sat by Pulse Oximetry 96 10/19/18 03:43 Temperature 97.6 F 10/19/18 03:43 Pulse Rate 43 10/19/18 05:57 Respiratory Rate 14 10/19/18 05:57 Blood Pressure 133/78 10/19/18 05:57 O2 Sat by Pulse Oximetry 97 10/19/18 05:57 Oxygen Delivery Oxygen Delivery Room Air Medical Decision Making - [facility] Narrative Medical decision making narrative: Patient presented with right lumbar pain, CT abdomen and pelvis, consistent for cholelithiasis.. He had no abdominal tenderness, no pulsatile mass. No bowel or bladder symptoms. Aorta appears to be consistent diameter on CT abdomen and pelvis. His normal distal pulses. No saddle anesthesias, no gross focal neurological deficits. No concerning rashes or lesions, or evidence of in fection at this point. Patient's lumbar pain, possibly strain versus biliary colic with history cholelithiasis. On vital sign assessment, patient was to be bradycardic, and further evaluations EKG for atrial flutter, and decreased ventricular rate. Patient appears to be asymptomatic. He is on Coumadin, Plavix, has a history of ventricular thrombus, and CABG. Patient was discussed with attending Dr. Solares feels that this patient and advised for admission for atrial flutter and patient's ventricular rate. Patient currently on Coumadin, Plavix, aspirin held here tonight. At time of this documentation, patient's chest x-ray, and troponin and TSH are still pending. Anticipate patient will be admitted. Due to shift change, care of this patient will be transferred over to JAZZ Toro. Please see her documentation for any changes to that plan Abdomen/Pelvis CT 10/19/18 04:43 IMPRESSION: 1. No evidence for stone disease. 2. Lumbar spondylosis. 3. Cholelithiasis without CT evidence for acute cholecystitis. D/ / Nico Landaverde MD / Nico Landaverde MD Interpreting Provider: Nico Landaverde MD Laboratory Tests 10/19/18 10/19/18 10/19/18 04:05 05:05 05:05 WBC 6.7 RBC 4.16 L Hgb 12.7 L Hct 38.0 MCV 91.3 MCH 30.5 MCHC 33.4 RDW 13.3 Plt Count 130 L MPV 10.0 Immature Gran % 0.3 Seg Neutrophils % 49.2 Lymphocytes % 33.9 Monocytes % 7.5 Eosinophils % 8.5 Basophils % 0.6 Neutrophils # 3.3 Lymphocytes # 2.3 Monocytes # 0.5 Eosinophils # 0.6 Basophils # 0.0 PT 26.1 H INR 2.3 APTT 43.2 H Sodium Potassium Chloride Carbon Dioxide BUN Creatinine Est GFR ( Amer) Est GFR (Non-Af Amer) BUN/Creatinine Ratio Glucose Calculated Osmolality Calcium Total Bilirubin Direct Bilirubin Indirect Bilirubin AST ALT Alkaline Phosphatase Serum Total Protein Albumin Globulin Albumin/Globulin Ratio Lipase Urine Color Yellow Urine Clarity Clear Urine pH 5.5 Ur Specific [place] 1.015 Urine Protein Trace Urine Glucose (UA) Normal Urine Ketones Negative Urine Blood Negative Urine Nitrite Negative Urine Bilirubin Negative Urine Urobilinogen Normal Ur Leukocyte Esterase Negative Urine Microscopic RBC 0-3 Urine Microscopic WBC 0-3 Ur Squamous Epith Cells Many H Urine Bacteria None Seen Hyaline Casts None Seen Ur Culture Indicated? NO Stool Occult Bld Scrn 10/19/18 10/19/18 05:05 05:34 WBC RBC Hgb Hct MCV MCH MCHC RDW Plt Count MPV Immature Gran % Seg Neutrophils % Lymphocytes % Monocytes % Eosinophils % Basophils % Neutrophils # Lymphocytes # Monocytes # Eosinophils # Basophils # PT INR APTT Sodium 142 Potassium 4.2 Chloride 110 H Carbon Dioxide 24 BUN 29 H Creatinine 1.38 H Est GFR ( Amer) > 60 Est GFR (Non-Af Amer) 52 L BUN/Creatinine Ratio 21 Glucose 169 H Calculated Osmolality 304 H Calcium 9.1 Total Bilirubin 0.4 Direct Bilirubin 0.1 Indirect Bilirubin 0.3 AST 13 ALT 15 Alkaline Phosphatase 55 Serum Total Protein 6.4 Albumin 4.1 Globulin 2.3 L Albumin/Globulin Ratio 1.8 Lipase 38 Urine Color Urine Clarity Urine pH Ur Specific [place] Urine Protein Urine Glucose (UA) Urine Ketones Urine Blood Urine Nitrite Urine Bilirubin Urine Urobilinogen Ur Leukocyte Esterase Urine Microscopic RBC Urine Microscopic WBC Ur Squamous Epith Cells Urine Bacteria Hyaline Casts Ur Culture Indicated? Stool Occult Bld Scrn Negative - Lab Data Lab results reviewed: Yes I reviewed the patient's lab results. Result diagrams: 10/19/18 05:05 10/19/18 05:05 Lab Results 10/19/18 10/19/18 10/19/18 Range/Units 04:05 05:05 05:05 WBC 6.7 (4.3-11.1) K/mcL RBC 4.16 L (4.19-5.50) M/mcL Hgb 12.7 L (12.9-16.9) g/dL Hct 38.0 (37.5-50.1) % MCV 91.3 (83.0-100.0) fL MCH 30.5 (28.0-33.3) pg MCHC 33.4 (31.6-35.5) g/dL RDW 13.3 (11.5-14.5) % Plt Count 130 L (140-400) K/mcL MPV 10.0 (9.4-12.4) fL Immature Gran % 0.3 (0-4) % Seg Neutrophils % 49.2 % Lymphocytes % 33.9 % Monocytes % 7.5 % Eosinophils % 8.5 % Basophils % 0.6 % Neutrophils # 3.3 (1.6-8.9) K/mcL Lymphocytes # 2.3 (0.6-4.6) K/mcL Monocytes # 0.5 (0.0-1.3) K/mcL Eosinophils # 0.6 (0.0-0.6) K/mcL Basophils # 0.0 (0.0-0.2) K/mcL PT 26.1 H (9.4-12.1) Seconds INR 2.3 APTT 43.2 H (26.0-36.0) Seconds Sodium (136-145) mEq/L Potassium (3.5-5.1) mEq/L Chloride (98-107) mEq/L Carbon Dioxide (23-29) mEq/L BUN (8-23) mg/dL Creatinine (0.70-1.30) mg/dL Est GFR ( Amer) (> 60) Est GFR (Non-Af Amer) (> 60) BUN/Creatinine Ratio (6-26) Glucose (70-105) mg/dL Calculated Osmolality (280-300) Calcium (8.6-10.3) mg/dL Total Bilirubin (0.3-1.0) mg/dL Direct Bilirubin (0.0-0.2) mg/dL Indirect Bilirubin (0.0-1.2) mg/dL AST (13-39) Units/L ALT (7-52) Units/L Alkaline Phosphatase (34-104) Units/L Serum Total Protein (6.4-8.9) g/dL Albumin (3.5-5.7) g/dL Globulin (2.4-3.5) g/dL Albumin/Globulin Ratio (1.1-2.2) Lipase (11-82) Units/L Urine Color Yellow (Yellow) Urine Clarity Clear (Clear) Urine pH 5.5 (5.0-8.0) pH Units Ur Specific [place] 1.015 (1.010-1.025) Urine Protein Trace (Neg-Trace) mg/dL Urine Glucose (UA) Normal (Normal) mg/dL Urine Ketones Negative (Negative) mg/dL Urine Blood Negative (Negative) Urine Nitrite Negative (Negative) Urine Bilirubin Negative (Negative) Urine Urobilinogen Normal (Normal) mg/dL Ur Leukocyte Esterase Negative (Negative) Urine Microscopic RBC 0-3 (0-3) per hpf Urine Microscopic WBC 0-3 (0-3) per hpf Ur Squamous Epith Cells Many H (None-Few) per lpf Urine Bacteria None Seen (None-Few) per hpf Hyaline Casts None Seen (None-Few) per lpf Ur Culture Indicated? NO (NO) Stool Occult Bld Scrn (Negative) 10/19/18 10/19/18 Range/Units 05:05 05:34 WBC (4.3-11.1) K/mcL RBC (4.19-5.50) M/mcL Hgb (12.9-16.9) g/dL Hct (37.5-50.1) % MCV (83.0-100.0) fL MCH (28.0-33.3) pg MCHC (31.6-35.5) g/dL RDW (11.5-14.5) % Plt Count (140-400) K/mcL MPV (9.4-12.4) fL Immature Gran % (0-4) % Seg Neutrophils % % Lymphocytes % % Monocytes % % Eosinophils % % Basophils % % Neutrophils # (1.6-8.9) K/mcL Lymphocytes # (0.6-4.6) K/mcL Monocytes # (0.0-1.3) K/mcL Eosinophils # (0.0-0.6) K/mcL Basophils # (0.0-0.2) K/mcL PT (9.4-12.1) Seconds INR APTT (26.0-36.0) Seconds Sodium 142 (136-145) mEq/L Potassium 4.2 (3.5-5.1) mEq/L Chloride 110 H (98-107) mEq/L Carbon Dioxide 24 (23-29) mEq/L BUN 29 H (8-23) mg/dL Creatinine 1.38 H (0.70-1.30) mg/dL Est GFR ( Amer) > 60 (> 60) Est GFR (Non-Af Amer) 52 L (> 60) BUN/Creatinine Ratio 21 (6-26) Glucose 169 H (70-105) mg/dL Calculated Osmolality 304 H (280-300) Calcium 9.1 (8.6-10.3) mg/dL Total Bilirubin 0.4 (0.3-1.0) mg/dL Direct Bilirubin 0.1 (0.0-0.2) mg/dL Indirect Bilirubin 0.3 (0.0-1.2) mg/dL AST 13 (13-39) Units/L ALT 15 (7-52) Units/L Alkaline Phosphatase 55 (34-104) Units/L Serum Total Protein 6.4 (6.4-8.9) g/dL Albumin 4.1 (3.5-5.7) g/dL Globulin 2.3 L (2.4-3.5) g/dL Albumin/Globulin Ratio 1.8 (1.1-2.2) Lipase 38 (11-82) Units/L Urine Color (Yellow) Urine Clarity (Clear) Urine pH (5.0-8.0) pH Units Ur Specific [place] (1.010-1.025) Urine Protein (Neg-Trace) mg/dL Urine Glucose (UA) (Normal) mg/dL Urine Ketones (Negative) mg/dL Urine Blood (Negative) Urine Nitrite (Negative) Urine Bilirubin (Negative) Urine Urobilinogen (Normal) mg/dL Ur Leukocyte Esterase (Negative) Urine Microscopic RBC (0-3) per hpf Urine Microscopic WBC (0-3) per hpf Ur Squamous Epith Cells (None-Few) per lpf Urine Bacteria (None-Few) per hpf Hyaline Casts (None-Few) per lpf Ur Culture Indicated? (NO) Stool Occult Bld Scrn Negative (Negative) - Radiology Data Radiology results reviewed: Yes I reviewed the patient's radiology results.
[2018-10-19 04:43] LABS: Bilirubin,Urine Negative (Negative); Blood,Urine Negative (Negative); Clarity,Urine Clear (Clear); Color,Urine Yellow (Yellow); Glucose,Urine (UA) Normal (Normal); Ketones,Urine Negative (Negative); Leukocyte Esterase,Urine Negative (Negative); Nitrite,Urine Negative (Negative); PH,Urine 5.5 pH Units (5.0-8.0); Protein,Urine Trace mg/dL (Neg-Trace); Specific Gravity,Urine 1.015 (1.010-1.025); Urobilinogen,Urine Normal (Normal)
[2018-10-19 04:46] LABS: Bacteria,Urine None Seen per hpf (None-Few); Hyaline Casts,Urine None Seen per lpf (None-Few); RBC,Urine 0-3 per hpf (0-3); Squamous Epithelial Cell,Urine Many per lpf (None-Few); WBC,Urine 0-3 per hpf (0-3)
--- NOTE | 2018-10-19 04:49 | Emergency Department Note ---
Disposition Clinical Impression: Gallstones Atrial flutter Qualifiers: Atrial flutter type: unspecified Qualified Code(s): I48.92 - Unspecified atrial flutter Disposition: Admitted As Inpatient Forms: ED Satisfaction Letter General Adult HPI - General Chief complaint: ED Back Pain/Injury Stated complaint: right lower back pain Time Seen by Provider: 10/19/18 03:46 Source: patient Limitations: no limitations - History of Present Illness Pain Scale: 8 - Related Data Home Medications Medication Instructions Recorded Confirmed Armodafinil [Nuvigil] 250 mg PO DAILY 03/21/17 03/21/17 Carvedilol [Coreg] 6.25 mg PO BIDWM 03/21/17 03/21/17 Clopidogrel [Plavix] 75 mg PO DAILY 03/21/17 03/21/17 Gabapentin [Neurontin] 800 mg PO TID 03/21/17 03/21/17 Glimepiride [Amaryl] 2 mg PO QAM 03/21/17 03/21/17 Magnesium Oxide [Mgo] 400 mg PO DAILY 03/21/17 03/21/17 Metformin HCl [Glucophage] 1,000 mg PO BID 03/21/17 03/21/17 Multivits,Ca,Min/Iron/FA/Lycop 1 tab PO DAILY 03/21/17 03/21/17 [Centrum Men's Tablet] Nitroglycerin [Nitrostat] 0.4 mg SL AD PRN 03/21/17 03/21/17 OxyCODONE/APAP 5/325 [Percocet 1 tab PO Q6HR PRN 03/21/17 03/21/17 5/325 MG] Simvastatin [Zocor] 40 mg PO HS 03/21/17 03/21/17 Zolpidem [Ambien] 10 mg PO HS 03/21/17 03/21/17 Furosemide [Lasix] 20 mg PO 11/29/17 Losartan [Cozaar] 25 mg PO 11/29/17 Previous Rx's Medication Instructions Recorded Warfarin [Coumadin] 5 mg PO DAILY@1800 #20 tablet 03/23/17 Albuterol Sulfate [Albuterol 2 puff IH QID #1 inhaler 11/29/17 Inhaler] Benzonatate [Tessalon] 200 mg PO TID PRN #20 capsule 01/11/18 Clindamycin HCl 300 mg PO TID #30 capsule 11/29/17 Allergies Allergy/AdvReac Type Severity Reaction Status Date / Time No Known Allergies Allergy Verified 11/29/17 10:00 Constitutional: Denies: fever, chills Eyes: Denies: vision change ENT ED: Denies: throat pain Cardiovascular: Denies: chest pain, palpitations, dyspnea on exertion Respiratory: Denies: dyspnea Gastrointestinal: Reports: as per HPI. Denies: abdominal pain, nausea, vomiting Genitourinary: Reports: as per HPI. Denies: hematuria, discharge, testicular pain Musculoskeletal: Reports: as per HPI. Denies: neck pain Integumentary: Denies: rash Neurological: Denies: headache, weakness, numbness, paresthesias Endocrine: Denies: fatigue Hematological/Lymphatic: Denies: easy bleeding Allergic/Immunologic: Denies: facial swelling Past Medical History - Past Medical History Medical history: Reports: diabetes, hyperlipidemia, hypertension, myocardial infarction Surgical history: Reports: coronary bypass (CABG), other (Patient reports having a scope of the right knee, two back surgeries, and Lasix surgery on his eyes.) Psychiatric history: Reports: no psych history - Social History Smoking Status: Never smoker Smokeless Tobacco Status: No Alcohol use: Reports: none Drug use: Reports: none Physical Exam - General Limitations: no limitations General appearance: alert, in no apparent distress Course Vital Signs Temperature 97.6 F 10/19/18 03:43 Pulse Rate 46 10/19/18 03:43 Respiratory Rate 18 10/19/18 03:43 Blood Pressure 170/77 10/19/18 03:43 O2 Sat by Pulse Oximetry 96 10/19/18 03:43 Temperature 97.6 F 10/19/18 03:43 Pulse Rate 43 10/19/18 05:57 Respiratory Rate 14 10/19/18 05:57 Blood Pressure 133/78 10/19/18 05:57 O2 Sat by Pulse Oximetry 97 10/19/18 05:57 Oxygen Delivery Oxygen Delivery Room Air Medical Decision Making - MDM Narrative Medical decision making narrative: Patient had come in for right-sided back pain. I feel that this is secondary to likely has gallstones. There is no signs acute cholecystitis. We did find a heart rate to be low in the upper 30s and low 40s and what appears to be atrial flutter with a slow ventricular response. I feel he needs to be admitted for further workup of this as his heart rate, ventricular standpoint dropped into the 30s. He denies feeling any weakness or fatigue or any near syncope. He denies chest pain. He is on Coumadin of which she states was for that ventricular clot which broke off from the leg. He denies any history of A. fib or a flutter. - Medical Records Medical records reviewed: Yes I reviewed the patient's medical records. - Lab Data Lab results reviewed: Yes I reviewed the patient's lab results. Result diagrams: 10/19/18 05:05 10/19/18 05:05 Lab Results 10/19/18 10/19/18 10/19/18 Range/Units 04:05 05:05 05:05 WBC 6.7 (4.3-11.1) K/mcL RBC 4.16 L (4.19-5.50) M/mcL Hgb 12.7 L (12.9-16.9) g/dL Hct 38.0 (37.5-50.1) % MCV 91.3 (83.0-100.0) fL MCH 30.5 (28.0-33.3) pg MCHC 33.4 (31.6-35.5) g/dL RDW 13.3 (11.5-14.5) % Plt Count 130 L (140-400) K/mcL MPV 10.0 (9.4-12.4) fL Immature Gran % 0.3 (0-4) % Seg Neutrophils % 49.2 % Lymphocytes % 33.9 % Monocytes % 7.5 % Eosinophils % 8.5 % Basophils % 0.6 % Neutrophils # 3.3 (1.6-8.9) K/mcL Lymphocytes # 2.3 (0.6-4.6) K/mcL Monocytes # 0.5 (0.0-1.3) K/mcL Eosinophils # 0.6 (0.0-0.6) K/mcL Basophils # 0.0 (0.0-0.2) K/mcL PT 26.1 H (9.4-12.1) Seconds INR 2.3 APTT 43.2 H (26.0-36.0) Seconds Sodium (136-145) mEq/L Potassium (3.5-5.1) mEq/L Chloride (98-107) mEq/L Carbon Dioxide (23-29) mEq/L BUN (8-23) mg/dL Creatinine (0.70-1.30) mg/dL Est GFR ( Amer) (> 60) Est GFR (Non-Af Amer) (> 60) BUN/Creatinine Ratio (6-26) Glucose (70-105) mg/dL Calculated Osmolality (280-300) Calcium (8.6-10.3) mg/dL Total Bilirubin (0.3-1.0) mg/dL Direct Bilirubin (0.0-0.2) mg/dL Indirect Bilirubin (0.0-1.2) mg/dL AST (13-39) Units/L ALT (7-52) Units/L Alkaline Phosphatase (34-104) Units/L Serum Total Protein (6.4-8.9) g/dL Albumin (3.5-5.7) g/dL Globulin (2.4-3.5) g/dL Albumin/Globulin Ratio (1.1-2.2) Lipase (11-82) Units/L Urine Color Yellow (Yellow) Urine Clarity Clear (Clear) Urine pH 5.5 (5.0-8.0) pH Units Ur Specific [place] 1.015 (1.010-1.025) Urine Protein Trace (Neg-Trace) mg/dL Urine Glucose (UA) Normal (Normal) mg/dL Urine Ketones Negative (Negative) mg/dL Urine Blood Negative (Negative) Urine Nitrite Negative (Negative) Urine Bilirubin Negative (Negative) Urine Urobilinogen Normal (Normal) mg/dL Ur Leukocyte Esterase Negative (Negative) Urine Microscopic RBC 0-3 (0-3) per hpf Urine Microscopic WBC 0-3 (0-3) per hpf Ur Squamous Epith Cells Many H (None-Few) per lpf Urine Bacteria None Seen (None-Few) per hpf Hyaline Casts None Seen (None-Few) per lpf Ur Culture Indicated? NO (NO) Stool Occult Bld Scrn (Negative) 10/19/18 10/19/18 Range/Units 05:05 05:34 WBC (4.3-11.1) K/mcL RBC (4.19-5.50) M/mcL Hgb (12.9-16.9) g/dL Hct (37.5-50.1) % MCV (83.0-100.0) fL MCH (28.0-33.3) pg MCHC (31.6-35.5) g/dL RDW (11.5-14.5) % Plt Count (140-400) K/mcL MPV (9.4-12.4) fL Immature Gran % (0-4) % Seg Neutrophils % % Lymphocytes % % Monocytes % % Eosinophils % % Basophils % % Neutrophils # (1.6-8.9) K/mcL Lymphocytes # (0.6-4.6) K/mcL Monocytes # (0.0-1.3) K/mcL Eosinophils # (0.0-0.6) K/mcL Basophils # (0.0-0.2) K/mcL PT (9.4-12.1) Seconds INR APTT (26.0-36.0) Seconds Sodium 142 (136-145) mEq/L Potassium 4.2 (3.5-5.1) mEq/L Chloride 110 H (98-107) mEq/L Carbon Dioxide 24 (23-29) mEq/L BUN 29 H (8-23) mg/dL Creatinine 1.38 H (0.70-1.30) mg/dL Est GFR ( Amer) > 60 (> 60) Est GFR (Non-Af Amer) 52 L (> 60) BUN/Creatinine Ratio 21 (6-26) Glucose 169 H (70-105) mg/dL Calculated Osmolality 304 H (280-300) Calcium 9.1 (8.6-10.3) mg/dL Total Bilirubin 0.4 (0.3-1.0) mg/dL Direct Bilirubin 0.1 (0.0-0.2) mg/dL Indirect Bilirubin 0.3 (0.0-1.2) mg/dL AST 13 (13-39) Units/L ALT 15 (7-52) Units/L Alkaline Phosphatase 55 (34-104) Units/L Serum Total Protein 6.4 (6.4-8.9) g/dL Albumin 4.1 (3.5-5.7) g/dL Globulin 2.3 L (2.4-3.5) g/dL Albumin/Globulin Ratio 1.8 (1.1-2.2) Lipase 38 (11-82) Units/L Urine Color (Yellow) Urine Clarity (Clear) Urine pH (5.0-8.0) pH Units Ur Specific [place] (1.010-1.025) Urine Protein (Neg-Trace) mg/dL Urine Glucose (UA) (Normal) mg/dL Urine Ketones (Negative) mg/dL Urine Blood (Negative) Urine Nitrite (Negative) Urine Bilirubin (Negative) Urine Urobilinogen (Normal) mg/dL Ur Leukocyte Esterase (Negative) Urine Microscopic RBC (0-3) per hpf Urine Microscopic WBC (0-3) per hpf Ur Squamous Epith Cells (None-Few) per lpf Urine Bacteria (None-Few) per hpf Hyaline Casts (None-Few) per lpf Ur Culture Indicated? (NO) Stool Occult Bld Scrn Negative (Negative) - Radiology Data Radiology results reviewed: Yes I reviewed the patient's radiology results. Attestation Statement - Attestation Attestation: I have personally performed a face to face evaluation on this patient. I have reviewed and agree with the care plan. History and Exam by me shows: 62 yo M here for right sided lower back pain. Onset 2 weeks ago. Was worse tonight. He currently is on Coumadin for history of a thrombus in his heart. He denies trauma. No radicular signs. No pain radiation. We will do lab work as well as a CT abdomen and pelvis and urinalysis. vss check INR, cbc, UA, BmP, CT abd pelvis
[2018-10-19 05:18] LABS: Basophils % 0.6 %; Eosinophils # 0.6 K/mcL (0.0-0.6); Eosinophils % 8.5 %; Hemoglobin 12.7 g/dL (12.9-16.9); Immature Granulocytes % 0.3 % (0-4); Lymphocytes # 2.3 K/mcL (0.6-4.6); Lymphocytes % 33.9 %; Mean Corpuscular HGB Conc 33.4 g/dL (31.6-35.5); Mean Corpuscular Hemoglobin 30.5 pg (28.0-33.3); Mean Corpuscular Volume 91.3 fL (83.0-100.0); Monocytes # 0.5 K/mcL (0.0-1.3); Monocytes % 7.5 %; Neutrophils # 3.3 K/mcL (1.6-8.9); Platelet Count 130 K/mcL (140-400); Red Blood Count 4.16 M/mcL (4.19-5.50); Red Cell Distribution Width 13.3 % (11.5-14.5); Segmented Neutrophils % 49.2 %
[2018-10-19 05:24] LABS: INR 2.3; Prothrombin Time 26.1 Seconds (9.4-12.1)
[2018-10-19 05:26] LABS: Activated Partial Thrombo Time 43.2 Seconds (26.0-36.0)
[2018-10-19 05:40] LABS: BUN/Creatinine Ratio 21 (6-26); Blood Urea Nitrogen 29 mg/dL (8-23); Calcium 9.1 mg/dL (8.6-10.3); Carbon Dioxide 24 mEq/L (23-29); Chloride 110 mEq/L (98-107); Glucose 169 mg/dL (70-105); Osmolality,Calculated 304 (280-300); Potassium 4.2 mEq/L (3.5-5.1); Sodium 142 mEq/L (136-145); eGFR For Non-African Americans 52 (> 60)
[2018-10-19 05:56] LABS: Alanine Aminotransferase 15 Units/L (7-52); Albumin 4.1 g/dL (3.5-5.7); Albumin/Globulin Ratio 1.8 (1.1-2.2); Alkaline Phosphatase 55 Units/L (34-104); Aspartate Amino Transferase 13 Units/L (13-39); Bilirubin,Direct 0.1 mg/dL (0.0-0.2); Bilirubin,Indirect 0.3 mg/dL (0.0-1.2); Bilirubin,Total 0.4 mg/dL (0.3-1.0); Globulin 2.3 g/dL (2.4-3.5); Lipase 38 Units/L (11-82); Total Protein 6.4 g/dL (6.4-8.9)
[2018-10-19 06:37] LABS: Troponin I < 0.03 ng/mL (< 0.04)
[2018-10-19 06:50] LABS: Thyroid Stimulating Hormone 4.506 mcIU/mL (0.340-5.600)
--- NOTE | 2018-10-19 08:03 | Internal Med History&Physical ---
Date of Encounter: 10/19/18 Time of Encounter: 08:01 Internal Medicine - H&P: HPI Chief complaint: back pain Admitted From: Emergency Dept Plans for Post Hospital Care: Home History of present illness: Mr. Stevens is a 62 year old male Patient with history of diabetes, morbid obesity, high cholesterol, CAD has history of CABG in the past also ventricular thrombosis on Coumadin patient presented emergency room with back pain for about 2 weeks which has gotten worse especially with movement and then comes to emergency room CT of the abdomen/pelvis was unremarkable shows no acute fracture patient was noted to h ave atrial flutter with a slow ventricular response about 43 bpm and patient is admitted for cardiology consult mainly because of the slow ventricular response atrial flutter patient denies any chest pain no syncope INR 2.3 creatinine is 1.38 also has acute kidney injury. Patient is on Coreg 6.25 twice a day which would hold for now Past Med Surg Social Fam HX - Past Medical History Medical history: diabetes, hyperlipidemia, hypertension, myocardial infarction Additional medical history: [place] x 4, Right arm stent Psychiatric history: no psych history - Past Surgical History Surgical History: coronary bypass (CABG), other (Patient reports having a scope of the right knee, two back surgeries, and Lasix surgery on his eyes.) Additional surgical history: 5 way bypass. r leg/ankle. bilat knee sx. microdiskectomy L4-L5. stent in right arm - Social History Smoking Status: Never smoker Smokeless Tobacco Status: No Alcohol use: none Drug use: none - Family History Mother Family Member Ethnicity: Non- Living Status: Hx Family Cardiac Disorders: Yes (CHF) Father Family Member Ethnicity: Non- Living Status: Brother Family Member Ethnicity: Non- Living Status: Still Living Hx Family Cancer: Yes (Lung) Sister Family Member Ethnicity: Non- Living Status: Still Living Hx Family Cardiac Disorders: Yes (HD, CA, HTN, Hyperlipidemia) Hx Family Respiratory Disorders: Yes (COPD) Hx Family Endocrine Disorder: Yes (DM) Internal Medicine - H&P: Meds Armodafinil [Nuvigil] 250 mg PO DAILY 03/21/17 [History] Carvedilol [Coreg] 6.25 mg PO BIDWM 03/21/17 [History] Clopidogrel [Plavix] 75 mg PO DAILY 03/21/17 [History] Gabapentin [Neurontin] 800 mg PO TID 03/21/17 [History] Glimepiride [Amaryl] 2 mg PO QAM 03/21/17 [History] Magnesium Oxide [Mgo] 400 mg PO DAILY 03/21/17 [History] Metformin HCl [Glucophage] 1,000 mg PO BID 03/21/17 [History] Multivits,Ca,Min/Iron/FA/Lycop [Centrum Men's Tablet] 1 tab PO DAILY 03/21/17 [History] Nitroglycerin [Nitrostat] 0.4 mg SL AD PRN 03/21/17 [History] OxyCODONE/APAP 5/325 [Percocet 5/325 MG] 1 tab PO Q6HR PRN 03/21/17 [History] Simvastatin [Zocor] 40 mg PO HS 03/21/17 [History] Zolpidem [Ambien] 10 mg PO HS 03/21/17 [History] Warfarin [Coumadin] 5 mg PO DAILY@1800 #20 tablet 03/23/17 [Rx] Albuterol Sulfate [Albuterol Inhaler] 2 puff IH QID #1 inhaler 11/29/17 [Rx] Benzonatate [Tessalon] 200 mg PO TID PRN #20 capsule 11/29/17 [Rx] Clindamycin HCl 300 mg PO TID #30 capsule 11/29/17 [Rx] Furosemide [Lasix] 20 mg PO 11/29/17 [History] Losartan [Cozaar] 25 mg PO 11/29/17 [History] Allergy/AdvReac Type Severity Reaction Status Date / Time No Known Allergies Allergy Verified 11/29/17 10:00 All Systems PM: A 10-system review of systems was performed and is negative for pertinent findings except as documented above in the HPI. - Constitutional Vitals: Temp Pulse Resp BP Pulse Ox 97.6 F 44 18 136/75 98 10/19/18 03:43 10/19/18 07:20 10/19/18 07:20 10/19/18 07:20 10/19/18 07:20 General appearance: Present: obese Exam: done - Eye Eye exam: Present: PERRL, conjuntiva pink, sclera anicteric Pupils: Present: PERRL - Neck Neck exam general surgery: Present: supple, trachea midline. Absent: lymphad enopathy - Respiratory Respiratory exam: Present: CTAB. Absent: accessory muscle use, rales, rhonchi, wheezes - Cardiovascular Cardiovascular exam: Present: irregular rhythm, +S1, +S2 - GI/Abdominal GI/Abdominal exam: Present: normal bowel sounds, soft, no peritoneal signs. Absent: distended, tenderness Internal Med - H&P Results - Labs CBC & Chem 7: 10/19/18 05:05 10/19/18 05:05 Labs: Short CBC 10/19/18 Range/Units 05:05 WBC 6.7 (4.3-11.1) K/mcL Hgb 12.7 L (12.9-16.9) g/dL Hct 38.0 (37.5-50.1) % Plt Count 130 L (140-400) K/mcL Neutrophils # 3.3 (1.6-8.9) K/mcL BMP 10/19/18 05:05 Sodium 142 Potassium 4.2 Chloride 110 H Carbon Dioxide 24 BUN 29 H Creatinine 1.38 H Glucose 169 H Calcium 9.1 Cardiac Enzymes 10/19/18 Range/Units 05:05 Troponin I < 0.03 (< 0.04) ng/mL Liver Function 10/19/18 Range/Units 05:05 Total Bilirubin 0.4 (0.3-1.0) mg/dL Direct Bilirubin 0.1 (0.0-0.2) mg/dL AST 13 (13-39) Units/L ALT 15 (7-52) Units/L Alkaline Phosphatase 55 (34-104) Units/L Albumin 4.1 (3.5-5.7) g/dL Urine 10/19/18 Range/Units 04:05 Urine Color Yellow (Yellow) Urine Clarity Clear (Clear) Urine pH 5.5 (5.0-8.0) pH Units Ur Specific [place] 1.015 (1.010-1.025) Urine Protein Trace (Neg-Trace) mg/dL Urine Glucose (UA) Normal (Normal) mg/dL - Impressions ITS Impressions Abdomen/Pelvis CT 10/19/18 04:43 IMPRESSION: 1. No evidence for stone disease. 2. Lumbar spondylosis. 3. Cholelithiasis without CT evidence for acute cholecystitis. D/ / Nico Landaverde MD / Nico Landaverde MD Interpreting Provider: Nico Landaverde MD Chest X-Ray 10/19/18 06:07 IMPRESSION: No acute cardiopulmonary process seen. D/ / Shai Henriquez MD / Shai Henriquez MD Interpreting Provider: Shai Henriquez MD - Assessment and plan (1) Hyperlipidemia Current Visit: No Status: Chronic Assessment and plan: Chronic resume home medication Qualifiers: Hyperlipidemia type: pure hypercholesterolemia Qualified Code(s): E78.00 - Pure hypercholesterolemia, unspecified; E78.0 - Pure hypercholesterolemia (2) Hypertension Current Visit: No Status: Chronic Assessment and plan: Chronic and well controlled Qualifiers: Hypertension type: essential hypertension Qualified Code(s): I10 - Essential (primary) hypertension (3) Diabetic neuropathy Current Visit: No Status: Chronic Assessment and plan: Resume home medication and place on sliding scale Qualifiers: Diabetes mellitus type: type 2 Diabetes mellitus complication detail: diabetic polyneuropathy Qualified Code(s): E11.42 - Type 2 diabetes mellitus with diabetic polyneuropathy (4) Left ventricular apical thrombus Current Visit: No Status: Chronic Assessment and plan: Continue home medication INR is therapeutics (5) CAD (coronary artery disease) Current Visit: No Status: Chronic Assessment and plan: No chest pain Qualifiers: Coronary Disease-Associated Artery/Lesion type: bypass graft [place] vs. transplanted heart: [place] heart Associated angina: without angina Qualified Code(s): I25.810 - Atherosclerosis of coronary artery bypass graft(s) without angina pectoris (6) Atrial flutter Current Visit: Yes Status: Acute Assessment and plan: With slow ventricular response will consult cardiology and discontinue Coreg for now Qualifiers: Atrial flutter type: unspecified Qualified Code(s): I48.92 - Unspecified atrial flutter (7) Right lumbar pain Current Visit: Yes Status: Acute Assessment and plan: No acute fracture we will consult PTOT Qualifiers: Chronicity: acute Sciatica presence: without sciatica Qualified Code(s): M54.5 - Low back pain - Time Spent With Patient Total time spent is greater than 50% in coordination of care (as documented) at patient's floor/unit and/or counseling patient:
[2018-10-19] MEDS ORDERED: traMADol 50 MG TABLET PO PRN (08:08)
[2018-10-19] MEDS ORDERED: Acetaminophen 325 MG TABLET PO PRN (08:08)
[2018-10-19] MEDS ORDERED: Naloxone 0.4 MG/ML INJ IVP PRN (08:08)
[2018-10-19] MEDS ORDERED: *HR* OxyCODONE/APAP 5/325 TABLET PO PRN (08:10)
[2018-10-19] MEDS ORDERED: Benzonatate 100 MG CAPSULE PO PRN (08:10)
[2018-10-19] MEDS: Multivit/Ca/Min/Fe/FA 1 TAB TABLET PO SCH (09:13)
[2018-10-19] MEDS: Gabapentin 400 MG CAPSULE PO SCH ×3 (09:13→19:38)
[2018-10-19] MEDS: *HR* Glimepiride 2 MG TABLET PO SCH (09:14)
--- NOTE | 2018-10-19 10:17 | Cardiology Consult Note ---
Date of Encounter: 10/19/18 Time of Encounter: 09:00 Assessment and Plan (1) Left ventricular apical thrombus Current Visit: No Status: Chronic History of LV apical thrombus March 2017. Repeat Echo 06/2017 and more recently 07/2018 has not demonstrated persistent LV thrombus. He does not need to be on anticoagulation any further for this finding. (2) CAD (coronary artery disease) Current Visit: No Status: Chronic Known history of CAD having had remote bypass. His most recent LHC in March 2018 demonstrated 4/4 patent bypass grafts. He recently underwent stress testing demonstrating prior infarct without ischemia, gated EF 35%. Echo EF 45% - not all LV wall segments well visualized even with use of Definity. Recommend outpatient evaluation for consideration of AICD placement. Otherwise, he is chest pain free. Troponin negative. No acute ECG findings. Recommend continuing medical management. Qualifiers: Coronary Disease-Associated Artery/Lesion type: bypass graft [place] vs. transplanted heart: [place] heart Associated angina: without angina Qualified Code(s): I25.810 - Atherosclerosis of coronary artery bypass graft(s) without angina pectoris (3) Atrial flutter Current Visit: Yes Status: Acute ECG on arrival demonstrates atrial flutter which is a new, incidental finding. Patient's presenting symptoms of right flank pain are non-cardiac. I discussed this new finding with the patient. Since he is on coumadin already, would elect to continue anticoagulation (CHADSVASC 3). He is presently therapeutic but we do not have recent lab values. May consider attempt at druze of NSR with DCCV Sunday. Will need to obtain recent INRs. Otherwise, he is notably bradycardic. Will decrease his coreg. Qualifiers: Atrial flutter type: unspecified Qualified Code(s): I48.92 - Unspecified atrial flutter Discussion w patient/family: The assessment and plan as outlined above was discussed with the patient and/or family members who expressed understanding and agreement. All questions were answered. Thank you for involving us in the care of your patient. Please call with any questions. History of Present Illness Consult date: 10/19/18 Requesting physician: Rehana Smith Consult reason: Atrial Flutter Chief complaint: Right Flank Pain History of present illness: Mr. Stevens is a 62 year old male presenting with right flank pain. Patient states this started approximately 3 weeks ago. 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 His symptoms of right flank pain never really went away but intermittently worsened over the past few weeks. Yesterday, he was helping his niece put together a gymnasium and his discomfort worsened prompting him to come to the emergency room. At the bedside, the patient is resting comfortably in no acute distress. He reports continued right flank pain. He denies chest pain. He is not having palpitations, pre syncopal symptoms or syncope. Workup so far includes a negative troponin and no acute ECG changes. His ECG does demonstrate atrial flutter with a heart rate of 43 bpm and old LBBB. Medical history reviewed documenting diabetes, hypertension and hyperlipidemia. He has known coronary disease having undergone bypass in 2003 and more recently had a left heart catheterization in March 2017 which demonstrated 4/4 patent bypass grafts. An echo at that time demonstrated a small apical LV thrombus and patient was started on coumadin. He was then seen in May 2017 as an outpatient at which time a repeat echo was performed which did not demonstrate LV thrombus. He was lost to follow-up until June 2018 when he reestablish with [facility] and recently underwent Echo and stress testing. Past Med Surg Social Fam HX - Past Medical History Attestation: Yes The following information was validated with the patient. Medical history: coronary artery disease, diabetes, hyperlipidemia, hypertension, myocardial infarction Additional medical history: [place] x 4, Right arm stent Psychiatric history: no psych history - Past Surgical History Surgical History: coronary bypass (CABG), other Additional surgical history: 5 way bypass. r leg/ankle. bilat knee sx. microdiskectomy L4-L5. stent in right arm - Social History Smoking Status: Never smoker Smokeless Tobacco Status: No Alcohol use: rarely Drug use: none - Family History Mother Family Member Ethnicity: Non- Living Status: Hx Family Cardiac Disorders: Yes (CHF) Father Family Member Ethnicity: Non- Living Status: Brother Adopted: No Family Member Ethnicity: Non- Living Status: Age at : 60 Cause of : Cancer Hx Family Cardiac Disorders: Yes Hx Family Respiratory Disorders: Yes Hx Family Cancer: Yes Hx Family GI Disorders: No Hx Family Genitourinary Disorders: No Hx Family Endocrine Disorder: Yes Hx Family Musculoskeletal Disorders: No Hx Family Neuromuscular Disorders: No Hx Family Neurologic Disorders: No Hx Family HEENT Disorders: No Hx Family Autoimmune Disorders: No Hx Family Reproductive Disorders: No Hx Family Psychosocial Disorders: No Hx Family Medical Disorders: Yes Sister Family Member Ethnicity: Non- Living Status: Still Living Hx Family Cardiac Disorders: Yes (HD, NC, HTN, Hyperlipidemia) Hx Family Respiratory Disorders: Yes (COPD) Hx Family Endocrine Disorder: Yes (DM) Medications and Allergies Armodafinil [Nuvigil] 250 mg PO DAILY 03/21/17 [History] Carvedilol [Coreg] 6.25 mg PO BIDWM 03/21/17 [History] Clopidogrel [Plavix] 75 mg PO DAILY 03/21/17 [History] Gabapentin [Neurontin] 800 mg PO TID 03/21/17 [History] Glimepiride [Amaryl] 2 mg PO QAM 03/21/17 [History] Magnesium Oxide [Mgo] 400 mg PO DAILY 03/21/17 [History] Metformin HCl [Glucophage] 1,000 mg PO BID 03/21/17 [History] Multivits,Ca,Min/Iron/FA/Lycop [Centrum Men's Tablet] 1 tab PO DAILY 03/21/17 [History] Nitroglycerin [Nitrostat] 0.4 mg SL AD PRN 03/21/17 [History] OxyCODONE/APAP 5/325 [Percocet 5/325 MG] 1 tab PO Q6HR PRN 03/21/17 [History] Simvastatin [Zocor] 40 mg PO HS 03/21/17 [History] Zolpidem [Ambien] 10 mg PO HS 03/21/17 [History] Warfarin [Coumadin] 5 mg PO DAILY@1800 #20 tablet 03/23/17 [Rx] Albuterol Sulfate [Albuterol Inhaler] 2 puff IH QID #1 inhaler 11/29/17 [Rx] Benzonatate [Tessalon] 200 mg PO TID PRN #20 capsule 11/29/17 [Rx] Clindamycin HCl 300 mg PO TID #30 capsule 11/29/17 [Rx] Furosemide [Lasix] 20 mg PO 11/29/17 [History] Losartan [Cozaar] 25 mg PO 11/29/17 [History] Allergy/AdvReac Type Severity Reaction Status Date / Time No Known Allergies Allergy Verified 11/29/17 10:00 All Systems Review: The remainder of the systems were reviewed and are negative - Cardiovascular Cardiovascular: as per HPI Physical Examination Vital Signs, Last 4 Hours Pulse Resp BP Pulse Ox 10/19/18 08:44 38 16 184/93 97 10/19/18 07:20 44 18 136/75 98 General: Conversant, No Apparent Distress HEENT: Atraumatic, Normocephaly, Mucus Membranes Moist Neck: No JVD, Normal carotid pulses Cardiac: Other (Bradycardic, slightly irregular, no appreciable murmur) Lungs: Normal Breath Sounds, No Wheeze, Rales, Rhonchi Neuro: Alert and responsive, No focal deficits noted Abdomen: Soft, Non-Tender, Other (bowel sounds present) Extremities: Other (mild BLE edema, pedal pulses diminished) Results 10/19/18 05:05 10/19/18 05:05 Lab Results 10/19/18 10/19/18 10/19/18 05:05 05:05 05:05 WBC 6.7 Hgb 12.7 L Hct 38.0 Plt Count 130 L INR 2.3 APTT 43.2 H Sodium 142 Potassium 4.2 Chloride 110 H Carbon Dioxide 24 BUN 29 H Creatinine 1.38 H Glucose 169 H Calcium 9.1 Total Bilirubin 0.4 AST 13 ALT 15 Alkaline Phosphatase 55 Troponin I < 0.03 Lipase 38 TSH 4.506 - Imaging and Cardiology Chest Xray: report reviewed Stress Test: report reviewed, image reviewed Echo: report reviewed, image reviewed Cardiac cath: report reviewed - EKG Interpretation EKG results cardiology: personally reviewed (Presenting ECG demonstrates atrial flutter, left bundle branch block with heart rate 43 bpm), other (Telemetry demonstrates atrial flutter average heart rate 40 beats per minutes, no clinically significant positives or other dysrhythmia) Consult Discharge Plan - Plan Referrals: NONE,PCP [Primary Care Provider] -
[2018-10-19] MEDS ORDERED: *HR* Dextrose 50 % in Water (Syg) 50 ML SYRINGE IVP PRN (12:27)
[2018-10-19] MEDS ORDERED: D5% in Water 1,000 ML IVC PRN (12:27)
[2018-10-19] MEDS ORDERED: Dextrose Gel 15 GM/37.5 ML TUBE PO PRN ×2 (12:27)
[2018-10-19] MEDS: Insulin LISPRO 300 UNITS/3 ML VIAL SQ SCH ×2 (12:46→18:04)
[2018-10-19 13:13] LABS: Estimated Average Glucose 197 mg/dl; Hemoglobin A1C 8.5 %
[2018-10-19] MEDS ORDERED: *HR* Warfarin 5 MG TABLET PO SCH (18:00)
[2018-10-19] MEDS ORDERED: *HR* Warfarin 2.5 MG TABLET PO ONE (18:49)
[2018-10-19] MEDS: Magnesium Oxide 400 MG TABLET PO SCH (19:38)
[2018-10-19] MEDS ORDERED: Insulin LISPRO 300 UNITS/3 ML VIAL SQ SCH (21:00)
[2018-10-20 06:55] LABS: Hematocrit 39.8 % (37.5-50.1); Hemoglobin 13.6 g/dL (12.9-16.9); Mean Corpuscular HGB Conc 34.2 g/dL (31.6-35.5); Mean Corpuscular Hemoglobin 30.8 pg (28.0-33.3); Mean Corpuscular Volume 90.2 fL (83.0-100.0); Mean Platelet Volume 10.2 fL (9.4-12.4); Platelet Count 129 K/mcL (140-400); Red Blood Count 4.41 M/mcL (4.19-5.50); Red Cell Distribution Width 13.2 % (11.5-14.5)
[2018-10-20 07:03] LABS: INR 2.5; Prothrombin Time 27.9 Seconds (9.4-12.1)
[2018-10-20 07:14] VITALS: BP 159/81
[2018-10-20 07:16] LABS: Alanine Aminotransferase 16 Units/L (7-52); Albumin 4.4 g/dL (3.5-5.7); Albumin/Globulin Ratio 1.8 (1.1-2.2); Alkaline Phosphatase 57 Units/L (34-104); Aspartate Amino Transferase 12 Units/L (13-39); BUN/Creatinine Ratio 26 (6-26); Bilirubin,Total 0.5 mg/dL (0.3-1.0); Blood Urea Nitrogen 20 mg/dL (8-23); Calcium 9.2 mg/dL (8.6-10.3); Carbon Dioxide 23 mEq/L (23-29); Chloride 108 mEq/L (98-107); Chol/HDL Ratio 3.9 (0-4.9); Cholesterol 132 mg/dL (< 200); Globulin 2.5 g/dL (2.4-3.5); Glucose 203 mg/dL (70-105); HDL Cholesterol 34 mg/dL (40-59); LDL Cholesterol,Calculated 62 mg/dL (0-99); Magnesium 1.6 mg/dL (1.6-2.6); Osmolality,Calculated 294 (280-300); Potassium 4.1 mEq/L (3.5-5.1); Sodium 138 mEq/L (136-145); Total Protein 6.9 g/dL (6.4-8.9); Triglycerides 180 mg/dL (< 150); eGFR For Non-African Americans > 60 (> 60)
--- NOTE | 2018-10-20 07:42 | Internal Med Progress Note ---
Hospitalist Progress Note - Encounter Date of Encounter: 10/20/18 - Exam Vitals: Temp Pulse Resp BP Pulse Ox 97.2 F L 45 15 159/81 97 10/20/18 07:06 10/20/18 07:06 10/20/18 07:06 10/20/18 07:06 10/20/18 07:06 - Assessment and Plan (1) Atrial flutter Current Visit: Yes Status: Acute (2) CAD (coronary artery disease) Current Visit: No Status: Chronic (3) Diabetes mellitus Current Visit: No Status: Chronic (4) Hyperlipidemia Current Visit: No Status: Chronic (5) Hypertension Current Visit: No Status: Chronic (6) Left ventricular apical thrombus Current Visit: No Status: Chronic - Time Spent with Patient Total time spent is greater than 50% in coordination of care (as documented) at patient's floor/unit and/or counseling patient: Internal Medicine: Result - Labs CBC & Chem 7: 10/20/18 06:22 10/20/18 06:22 Labs: Short CBC 10/20/18 Range/Units 06:22 WBC 6.9 (4.3-11.1) K/mcL Hgb 13.6 (12.9-16.9) g/dL Hct 39.8 (37.5-50.1) % Plt Count 129 L (140-400) K/mcL BMP 10/20/18 06:22 Sodium 138 Potassium 4.1 Chloride 108 H Carbon Dioxide 23 BUN 20 Creatinine 0.77 Glucose 203 H Calcium 9.2 Liver Function 10/20/18 Range/Units 06:22 Total Bilirubin 0.5 (0.3-1.0) mg/dL AST 12 L (13-39) Units/L ALT 16 (7-52) Units/L Alkaline Phosphatase 57 (34-104) Units/L Albumin 4.4 (3.5-5.7) g/dL - ABG Interpretation ABG results: PT/INR, D-dimer PT 27.9 Seconds (9.4-12.1) H 10/20/18 06:22 Consult Discharge Plan - Plan Referrals: NONE,PCP [Primary Care Provider] - (1) Atrial flutter Qualifiers: Atrial flutter type: unspecified Qualified Code(s): I48.92 - Unspecified atrial flutter (2) CAD (coronary artery disease) Qualifiers: Coronary Disease-Associated Artery/Lesion type: bypass graft [place] vs. 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
[2018-10-20] MEDS: Insulin LISPRO 300 UNITS/3 ML VIAL SQ SCH (08:38)
[2018-10-20] MEDS: Magnesium Oxide 400 MG TABLET PO SCH (08:38)
[2018-10-20] MEDS: Multivit/Ca/Min/Fe/FA 1 TAB TABLET PO SCH (08:38)
[2018-10-20] MEDS: *HR* Glimepiride 2 MG TABLET PO SCH (08:38)
[2018-10-20] MEDS: Gabapentin 400 MG CAPSULE PO SCH (08:38)
--- NOTE | 2018-10-20 09:05 | Cardiology Progress Note ---
Date of Encounter: 10/20/18 Time of Encounter: 09:02 Assessment and Plan (1) Left ventricular apical thrombus Current Visit: No Status: Chronic History of LV apical thrombus March 2017. Repeat Echo 06/2017 and more recently 07/2018 has not demonstrated persistent LV thrombus. He does not need to be on anticoagulation any further for this finding. (2) CAD (coronary artery disease) Current Visit: No Status: Chronic Known history of CAD having had remote bypass. His most recent LHC in March 2018 demonstrated 4/4 patent bypass grafts. He recently underwent stress testing demonstrating prior infarct without ischemia, gated EF 35%. Echo EF 45% - not all LV wall segments well visualized even with use of Definity. Recommend outpatient evaluation for consideration of AICD placement. Otherwise, he is chest pain free. Troponin negative. No acute ECG findings. Recommend continuing medical management. Will add back low dose coreg for chronic systolic heart failure. He should be placed back on his furosemide. Qualifiers: Coronary Disease-Associated Artery/Lesion type: bypass graft [place] vs. transplanted heart: [place] heart Associated angina: without angina Qualified Code(s): I25.810 - Atherosclerosis of coronary artery bypass graft(s) without angina pectoris (3) Atrial flutter Current Visit: Yes Status: Acute ECG on arrival demonstrates atrial flutter which is a new, incidental finding. Patient's presenting symptoms of right flank pain are non-cardiac and have resolved. Telemetry and ECG this morning demonstrate atrial flutter. I discussed options with the patient. He is asymptomatic and ready to go home. I therefore suggest that we have him follow up with his primary [facility] [facility] in 1- 2 weeks. Recommend adding back coreg, at lower dose for heart failure management (average HR 57 bpm on telemetry). He is anticoagulated with coumadin (CHADSVASC 3). Can consider attempt at NSR as outpatient. Qualifiers: Atrial flutter type: unspecified Qualified Code(s): I48.92 - Unspecified atrial flutter Discussion w patient/family: The assessment and plan as outlined above was discussed with the patient and/or family members who expressed understanding and agreement. All questions were answered. Will sign off. Please have patient follow up with primary [facility] in 1-2 weeks. Subjective Principal diagnosis: Right flank pain Interval history: Patient is feeling well this morning. Denies any further flank pain. No new cardiac complaints. Objective Vital Signs, Last 4 Hours Temp Pulse Resp BP Pulse Ox 10/20/18 07:06 97.2 F L 45 15 159/81 97 General: Conversant, No Apparent Distress HEENT: Mucus Membranes Moist Neck: No JVD Cardiac: Other (irregular rhythm, bradycardic, no appreciable murmur) Lungs: Normal Breath Sounds, No Wheeze, Rales, Rhonchi Neuro: Alert and responsive, No focal deficits noted Abdomen: Soft, Non-Tender, Other (bowel sounds present) Extremities: Other (mild BLE edema) Results 10/20/18 06:22 10/20/18 06:22 Lab Results 10/20/18 10/20/18 10/20/18 06:22 06:22 06:22 WBC 6.9 Hgb 13.6 Hct 39.8 Plt Count 129 L INR 2.5 Sodium 138 Potassium 4.1 Chloride 108 H Carbon Dioxide 23 BUN 20 Creatinine 0.77 Glucose 203 H Calcium 9.2 Magnesium 1.6 Total Bilirubin 0.5 AST 12 L ALT 16 Alkaline Phosphatase 57 B-Natriuretic Peptide 10/20/18 06:22 WBC Hgb Hct Plt Count INR Sodium Potassium Chloride Carbon Dioxide BUN Creatinine Glucose Calcium Magnesium Total Bilirubin AST ALT Alkaline Phosphatase B-Natriuretic Peptide 215 H - EKG Interpretation EKG results cardiology: personally reviewed (ECG done today 10/20/2018 at the bedside demonstrates atrial flutter, HR 40's), other (Telemetry reviewed demonstrating atrial flutter/fib with average HR 57 bpm, infrequent ventricular ectopy probably aberrant conduction) Consult Discharge Plan - Plan Referrals: NONE,PCP [Primary Care Provider] -
[2018-10-20] MEDS ORDERED: Furosemide 20 MG TABLET PO PRN (09:11)
--- NOTE | 2018-10-20 09:22 | Discharge Summary ---
- NOTES TO OUTPATIENT PROVIDER Notes to Outpatient Provider: Follow-up with cardiology within 1-2 weeks of hospital discharge Orders not resulted at time of discharge: Pending orders 10/19/18 05:22 Occult Blood,Stool [BF] Stat 10/20/18 08:34 ECG 12 lead ECG [ECG] Routine Date of Encounter: 10/20/18 Time of Encounter: 09:17 - Discharge Diagnosis (1) Atrial flutter Priority: Primary Status: Acute Qualifiers: Atrial flutter type: unspecified Qualified Code(s): I48.92 - Unspecified atrial flutter (2) CAD (coronary artery disease) Priority: Secondary Status: Chronic Qualifiers: Coronary Disease-Associated Artery/Lesion type: bypass graft [place] vs. 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 insulin use: without care home use Diabetes mellitus complication status: with hyperglycemia Qualified Code(s): E11.65 - Type 2 diabetes mellitus with hyperglycemia (4) Hyperlipidemia Priority: Secondary Status: Chronic Qualifiers: Hyperlipidemia type: pure hypercholesterolemia Qualified Code(s): E78.00 - Pure hypercholesterolemia, unspecified; E78.0 - Pure hypercholesterolemia (5) Hypertension Priority: Secondary Status: Chronic Qualifiers: Hypertension type: essential hypertension Qualified Code(s): I10 - Essential (primary) hypertension (6) 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 Stevens is a 62 year old male past medical history of diabetes, morbid obesity, high cholesterol, CAD has history of CABG in the past also ventricular thrombosis on Coumadin patient presented emergency room with back pain for about [address] abdomen and pelvis was done: unremarkable. Patient admitted to the hospital as patient was found to be in Atrial flutter with low ventricular response. Cardiology was consulted, believed the Atrial flutter with slow ventricular response was an incidental finding, as patient not symptomatic, recommended to decrease bb to 3.125mg/PO BID and continue full dose anticoagulation. Offered the patient to try to convert him back to sinus rhythm on Sunday but the patient refused. Cardiology agreed on discharging the patient and recommended to follow up at their office in 1-2 weeks after hospital d ischarge. Patient is hemodynamically stable to be discharge home. - Time Spent with Patient Total time spent providing and/or coordinating discharge services: Greater than 30 minutes (40) - Discharge Medications Prescriptions: Carvedilol [Coreg] 3.125 mg PO BIDWM 30 Days #60 tablet Home Medications: Armodafinil [Nuvigil] 250 mg PO DAILY 03/21/17 [History] Clopidogrel [Plavix] 75 mg PO DAILY 03/21/17 [History] Gabapentin [Neurontin] 1,600 mg PO BID 03/21/17 [History] Glimepiride [Amaryl] 2 mg PO QAM 03/21/17 [History] Magnesium Oxide [Mgo] 400 mg PO BID 03/21/17 [History] Metformin HCl [Glucophage] 1,000 mg PO BID 03/21/17 [History] Multivits,Ca,Min/Iron/FA/Lycop [Centrum Men's Tablet] 1 tab PO DAILY 03/21/17 [History] Nitroglycerin [Nitrostat] 0.4 mg SL AD PRN 03/21/17 [History] Simvastatin [Zocor] 40 mg PO HS 03/21/17 [History] Zolpidem [Ambien] 10 mg PO HS 03/21/17 [History] Furosemide [Lasix] 20 mg PO DAILY 11/29/17 [History] Losartan [Cozaar] 25 mg PO DAILY 11/29/17 [History] Oxycodone HCl/Acetaminophen [Percocet 10-325 mg Tablet] 1 tab PO BID PRN 10/19/18 [History] Warfarin [Coumadin] 7.5 mg PO DAILY 10/19/18 [History] Carvedilol [Coreg] 3.125 mg PO BIDWM 30 Days #60 tablet 10/20/18 [Rx] Allergies/Adverse Reactions: Allergy/AdvReac Type Severity Reaction Status Date / Time No Known Allergies Allergy Verified 11/29/17 10:00 Date of admission: 10/19/18 06:51 Primary care physician: PCP NONE Consults: 10/19/18 08:12 Consult to Cardiology [CONS] Routine Comment: Consulting Provider: Cardiology Camelia Reason for Consult: atrial flutter with slow ventricular response Time Notified: 08:13 Call Completed: No 10/19/18 08:15 Consult to Physical Therapy [CONS] Routine Comment: Evaluate, develop and implement POC Reason for Consult: evaluate and treat Does patient have active BEDREST order?: No Is patient medically & hemodynamically stable?: Yes - Constitutional Vitals: Temp Pulse Resp BP Pulse Ox 97.2 F L 45 15 159/81 97 10/20/18 07:06 10/20/18 07:06 10/20/18 07:06 10/20/18 07:06 10/20/18 07:06 General appearance: Present: obese Exam: Vitals: Reviewed. General: Obese, Alert and oriented x4. In no acute distress. Skin: Normal color, no rash, no lesions. HEENT: EOM, pupils equal, round and reactive. Cardiovascular: Irregularly, irregular, Normal S1 & S2, no rubs, murmurs or gallops. Lungs: Clear to auscultation bilaterally, no wheezes or crackles. Abdomen: Obese, Soft, non-tender, no rigidity. Extremities: 2+ edema in the right lower extremity, trace edema in the left. Neurological: Normal cognition and motor skills. Rest of the physical exam is non contributory - Patient Status Disposition: Home, Self-Care Condition: Good Functional capacity at discharge: independent ambulation Overall status at discharge: patient is back to baseline - Discharge Instructions Follow Up With: NONE,PCP [Primary Care Provider] - - Diet and Activity Activity: resume usual activities as tolerated Diet: diabetic diet
[2018-10-20] MEDS ORDERED: *HR* Warfarin 7.5 MG TABLET PO SCH (18:00)
--- NOTE | 2018-10-21 14:36 | Electrocardiograph Report ---
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
--- NOTE | 2018-10-21 16:59 | Electrocardiograph Report ---
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
== END 2018-10-20 10:30 | disposition home or self-care (01) ==
LOC: EMEROOARM 03:37 → 2NENU 03:37
PROVIDERS: ADMIT Family Medicine; ATTEND Family Medicine

== ENCOUNTER 2019-04-17 14:54 | Observation (INO) ==
--- NOTE | 2019-04-17 15:21 | Emergency Department Note ---
Disposition Clinical Impression: Weakness, Bradycardia, Supratherapeutic INR Dyspnea Qualifiers: Dyspnea type: unspecified Qualified Code(s): R06.00 - Dyspnea, unspecified Disposition: Admitted As Inpatient Time of Disposition: 19:28 SOB HPI - General Chief Complaint: ED Shortness of Breath/Dyspnea Stated Complaint: LEROY Time Seen by Provider: 04/17/19 15:06 Source: patient Limitations: no limitations Nursing Notes Reviewed: Yes Vital Signs Reviewed: Yes - History of Present Illness 63-year-old male presents from home with bedside for evaluation of shortness of breath. History of IA 4 with CABG 2, hypertension, hyperlipidemia, diabetes, atrial flutter. Patient states that, for the last 3 days, he feels short of breath when he wakes up and must sit at bedside for 15- 20 minutes before his breathing normalized. Occasionally throughout the day including while at rest he feels that he must take 8-10 deep breaths followed by yawn. He also notes weakness worse than usual in the last 3 days. He occasionally feels palpitations. He has no chest pain, no cough, no fever or chills, no diaphoresis. ROS: Positive: Occasional shortness of breath, palpitations, weakness Negative: Fever, chills, nausea, vomiting, chest pain, diaphoresis, cough, unusual back pain, abdominal pain, change in bowel or bladder habits - Related Data Home Medications Medication Instructions Recorded Confirmed Armodafinil [Nuvigil] 250 mg PO DAILY 03/21/17 10/19/18 Clopidogrel [Plavix] 75 mg PO DAILY 03/21/17 10/19/18 Gabapentin [Neurontin] 1,600 mg PO BID 03/21/17 10/19/18 Glimepiride [Amaryl] 2 mg PO QAM 03/21/17 10/19/18 Magnesium Oxide [Mgo] 400 mg PO BID 03/21/17 10/19/18 Metformin HCl [Glucophage] 1,000 mg PO BID 03/21/17 10/19/18 Multivits,Ca,Min/Iron/FA/Lycop 1 tab PO DAILY 03/21/17 10/19/18 [Centrum Men's Tablet] Nitroglycerin [Nitrostat] 0.4 mg SL AD PRN 03/21/17 10/19/18 Simvastatin [Zocor] 40 mg PO HS 03/21/17 10/19/18 Zolpidem [Ambien] 10 mg PO HS 03/21/17 10/19/18 Furosemide [Lasix] 20 mg PO DAILY 11/29/17 10/19/18 Losartan [Cozaar] 25 mg PO DAILY 11/29/17 10/19/18 Oxycodone HCl/Acetaminophen 1 tab PO BID PRN 10/19/18 10/19/18 [Percocet 10-325 mg Tablet] Warfarin [Coumadin] 7.5 mg PO DAILY 10/19/18 10/19/18 Allergies Allergy/AdvReac Type Severity Reaction Status Date / Time No Known Allergies Allergy Verified 11/29/17 10:00 All systems ED: reviewed and negative except as stated. Review of Systems: As Per HPI Past Medical History - Past Medical History Medical history: Reports: coronary artery disease, diabetes, hyperlipidemia, hypertension, myocardial infarction Surgical history: Reports: coronary bypass (CABG), other (Patient reports having a scope of the right knee, two back surgeries, and Lasix surgery on his eyes.) Psychiatric history: Reports: no psych history - Social History Smoking Status: Never smoker Smokeless Tobacco Status: No Alcohol use: Reports: rarely Drug use: Reports: none Physical Exam Vital Signs Reviewed General: Patient is alert, oriented, and in no acute distress. Head: atraumatic, normocephalic Eye: normal appearance, PERRL, EOMI, no scleral icterus, no conjunctival injection ENT: mucous membranes moist, normal external ear exam Neck: normal inspection, trachea midline, full ROM Chest: normal inspection, symmetric chest rise Respiratory: Good respiratory effort. Bilateral breath sounds are clear without wheezing, crackles, or rhonchi. Cardiovascular: Bradycardic rate and regular rhythm. No clicks, rubs, gallops, or murmors. Normal heart sounds. Bilateral radial posterior tibial pulses 2/4 and equal. 1-2 pitting pedal edema bilaterally. Abdomen: Bowel sounds present normoactive. Abdomen is soft, nondistended, and nontender. No guarding or rebound. No organomegaly noted. Musculoskeletal: Spontaneously moving all extremities. Skin: warm, dry, intact. Neuro: GCS 15. No focal neurologic deficits observed. Psych: Patient's affect is appropriate for situation. - General Limitations: no limitations General appearance: alert, in no apparent distress Course Course Narrative: Patient states his heart rate is typically 150s. At bedside, he is in the low to mid 40s. He is not hypotensive with blood pressure 149/65. He is alert, conversive, joking. He is not hypoxic with pulse ox 98% on room air. Chart check: Cardiac nuclear non-exercise stress test January 2019: Gated EF = 32% Cardiac echo Dec 2018: LVEF 40-45%. Average HR on October 2018 admission was 57, A. Flutter. He was seen by cardiology. EKG dated 04/17/2019 at 15:12 interpreted as atrial flutter with a rate of 44. QRS 159, QTC 402. Nonspecific ST-T changes. Compared to previous EKG dated 01/01/2019 interpreted as sinus bradycardia; no acute ischemic changes in comparison. Patient is on a B-caryl. We will hold this AV gely caryl in emergency department. Serum hematology is unremarkable. Serum chemistry shows elevated INR. Patient has no hematochezia or melena. No evidence of bleed at this time. We will hold his Coumadin. Chest x-ray shows cardiomegaly. By clinical exam as well as by lab and imaging, patient is not fluid overloaded. Clinically suspect his weakness and dyspnea are secondary to symptomatic bradycardia. This is potentially secondary to his AV gely caryl with potential contribution of his history of worsening cardiac function. 17:40 I discussed the patient with on-call cardiology, Dr. Peter. I discussed the patient's history, presentation, findings. Recommendations at this time are to ensure he is not fluid overloaded and to hold the AV gely caryl. No further recommendations 17:45 I discussed the patient with the admitting hospitalist, Dr. Ramirez, who agrees to accept the patient for continued evaluation monitoring. Vital Signs Temperature 97.8 F 04/17/19 14:57 Pulse Rate 58 04/17/19 14:57 Respiratory Rate 16 04/17/19 14:57 Blood Pressure 139/65 04/17/19 14:57 O2 Sat by Pulse Oximetry 96 04/17/19 14:57 Temperature 97.8 F 04/17/19 14:57 Pulse Rate 58 04/17/19 14:57 Respiratory Rate 16 04/17/19 14:57 Blood Pressure 139/65 04/17/19 14:57 O2 Sat by Pulse Oximetry 96 04/17/19 14:57 Oxygen Delivery Oxygen Delivery Room Air Shortness of Breath/Dyspnea - Lab Data Result diagrams: 04/17/19 15:39 04/17/19 15:39 Lab Results 04/17/19 04/17/19 04/17/19 Range/Units 15:39 15:39 15:39 WBC 7.4 (4.3-11.1) K/mcL RBC 4.01 L (4.19-5.50) M/mcL Hgb 12.6 L (12.9-16.9) g/dL Hct 36.6 L (37.5-50.1) % MCV 91.3 (83.0-100.0) fL MCH 31.4 (28.0-33.3) pg MCHC 34.4 (31.6-35.5) g/dL RDW 13.9 (11.5-14.5) % Plt Count 126 L (140-400) K/mcL MPV 10.4 (9.4-12.4) fL Immature Gran % 0.3 (0-4) % Seg Neutrophils % 58.6 % Lymphocytes % 26.1 % Monocytes % 6.7 % Eosinophils % 7.9 % Basophils % 0.4 % Neutrophils # 4.4 (1.6-8.9) K/mcL Lymphocytes # 1.9 (0.6-4.6) K/mcL Monocytes # 0.5 (0.0-1.3) K/mcL Eosinophils # 0.6 (0.0-0.6) K/mcL Basophils # 0.0 (0.0-0.2) K/mcL PT 61.2 H* (9.4-12.1) Seconds INR 5.4 H* APTT 54.3 H (26.0-36.0) Seconds Sodium 138 (136-145) mEq/L Potassium 4.0 (3.5-5.1) mEq/L Chloride 104 (98-107) mEq/L Carbon Dioxide 27 (23-29) mEq/L BUN 17 (8-23) mg/dL Creatinine 0.94 (0.70-1.30) mg/dL Est GFR ( Amer) > 60 (> 60) Est GFR (Non-Af Amer) > 60 (> 60) BUN/Creatinine Ratio 18 (6-26) Glucose 330 H (70-105) mg/dL Calculated Osmolality 300 (280-300) Calcium 9.3 (8.6-10.3) mg/dL Phosphorus 2.8 (2.7-4.5) mg/dL Magnesium 1.5 L (1.6-2.6) mg/dL Troponin I < 0.03 (< 0.04) ng/mL B-Natriuretic Peptide (Less than 100) pg/mL 04/17/19 Range/Units 15:39 WBC (4.3-11.1) K/mcL RBC (4.19-5.50) M/mcL Hgb (12.9-16.9) g/dL Hct (37.5-50.1) % MCV (83.0-100.0) fL MCH (28.0-33.3) pg MCHC (31.6-35.5) g/dL RDW (11.5-14.5) % Plt Count (140-400) K/mcL MPV (9.4-12.4) fL Immature Gran % (0-4) % Seg Neutrophils % % Lymphocytes % % Monocytes % % Eosinophils % % Basophils % % Neutrophils # (1.6-8.9) K/mcL Lymphocytes # (0.6-4.6) K/mcL Monocytes # (0.0-1.3) K/mcL Eosinophils # (0.0-0.6) K/mcL Basophils # (0.0-0.2) K/mcL PT (9.4-12.1) Seconds INR APTT (26.0-36.0) Seconds Sodium (136-145) mEq/L Potassium (3.5-5.1) mEq/L Chloride (98-107) mEq/L Carbon Dioxide (23-29) mEq/L BUN (8-23) mg/dL Creatinine (0.70-1.30) mg/dL Est GFR ( Amer) (> 60) Est GFR (Non-Af Amer) (> 60) BUN/Creatinine Ratio (6-26) Glucose (70-105) mg/dL Calculated Osmolality (280-300) Calcium (8.6-10.3) mg/dL Phosphorus (2.7-4.5) mg/dL Magnesium (1.6-2.6) mg/dL Troponin I (< 0.04) ng/mL B-Natriuretic Peptide 166 H (Less than 100) pg/mL Attestation Statement - Attestation Attestation: Resident Attestation: I examined this patient and my medical decision making was reviewed with the Resident Physician. I agree with the documented findings, disposition and treatment plan as described except to the extent set forth below. We independently had [id number] contact with the patient. EKG reviewed with resident physician. Agree with documentation. Patient presenting for evaluation of dizziness as well as shortness of breath. Patient has significant cardiac history. Patient denies chest pain but has not had chest pain with previous MIs. The patient has been bradycardic in the emergency department typically staying in the mid to high 40s but has dropped to 38 on multiple episodes. Pacing pads have been placed. Patient will undergo further evaluation for underlying cardiac versus pulmonary versus electrolyte abnormalities. Patient will likely require admission. Patient was noted to have significant JVD on exam, bedside ultrasound shows significant depressed ejection fraction. Further medical records show ejection fraction of approximately 45% in October dropping to 35% on recent stress test.
[2019-04-17 15:49] LABS: Basophils % 0.4 %; Eosinophils # 0.6 K/mcL (0.0-0.6); Eosinophils % 7.9 %; Hematocrit 36.6 % (37.5-50.1); Hemoglobin 12.6 g/dL (12.9-16.9); Immature Granulocytes % 0.3 % (0-4); Lymphocytes # 1.9 K/mcL (0.6-4.6); Lymphocytes % 26.1 %; Mean Corpuscular HGB Conc 34.4 g/dL (31.6-35.5); Mean Corpuscular Hemoglobin 31.4 pg (28.0-33.3); Mean Corpuscular Volume 91.3 fL (83.0-100.0); Mean Platelet Volume 10.4 fL (9.4-12.4); Monocytes # 0.5 K/mcL (0.0-1.3); Monocytes % 6.7 %; Neutrophils # 4.4 K/mcL (1.6-8.9); Platelet Count 126 K/mcL (140-400); Red Blood Count 4.01 M/mcL (4.19-5.50); Red Cell Distribution Width 13.9 % (11.5-14.5); Segmented Neutrophils % 58.6 %
[2019-04-17 16:00] LABS: Activated Partial Thrombo Time 54.3 Seconds (26.0-36.0)
[2019-04-17 16:10] LABS: INR 5.4; Prothrombin Time 61.2 Seconds (9.4-12.1)
[2019-04-17 16:27] LABS: BUN/Creatinine Ratio 18 (6-26); Blood Urea Nitrogen 17 mg/dL (8-23); Calcium 9.3 mg/dL (8.6-10.3); Carbon Dioxide 27 mEq/L (23-29); Chloride 104 mEq/L (98-107); Glucose 330 mg/dL (70-105); Osmolality,Calculated 300 (280-300); Sodium 138 mEq/L (136-145); Troponin I < 0.03 ng/mL (< 0.04); eGFR For Non-African Americans > 60 (> 60)
[2019-04-17] MEDS ORDERED: Naloxone 0.4 MG/ML INJ IVP PRN (17:51)
[2019-04-17] MEDS ORDERED: traMADol 50 MG TABLET PO PRN (17:51)
[2019-04-17] MEDS ORDERED: D5% in Water 1,000 ML IVC PRN (17:54)
[2019-04-17] MEDS ORDERED: *HR* Dextrose 50 % in Water (Syg) 50 ML SYRINGE IVP PRN (17:54)
[2019-04-17] MEDS ORDERED: Dextrose Gel 15 GM/37.5 ML TUBE PO PRN ×2 (17:54)
[2019-04-17] MEDS ORDERED: Furosemide 40 MG TABLET PO SCH (18:00)
[2019-04-17 18:11] LABS: Magnesium 1.5 mg/dL (1.6-2.6); Phosphorous 2.8 mg/dL (2.7-4.5)
--- NOTE | 2019-04-17 18:22 | Internal Med History&Physical ---
Date of Encounter: 04/17/19 Time of Encounter: 18:16 Internal Medicine - H&P: HPI Chief complaint: shortness of breath Admitted From: Home Plans for Post Hospital Care: Home History of present illness: Mr. Stevens is a 63 year old male PMH of CAD, s/p CABG x4MI last one in 2017, MD, HFrEF, HLD, Atrial flutter, left ventricular thrombus, HTN. Patient presented to the ED due to shortness of breath. patient report that for the past 3-4 days she has been feeling very short of breath, he states that at time he has to take very deep breaths to be able to catch his breath. Report this symptoms have become more progressive and he decided to come to the ED for evaluation. In the ED he was found to be bradycardic with his HR ranging in the mid 30s and 40s. He denies chest pain, light headedness or dizziness. Reports being compliant with his medications. Denies increase fluid intake but report increase edema of the lower extremities b/l. Past Med Surg Social Fam HX - Past Medical History Medical history: coronary artery disease, diabetes, hyperlipidemia, hypertension, myocardial infarction Additional medical history: VA x 4, Right arm stent Psychiatric history: no psych history - Past Surgical History Surgical History: coronary bypass (CABG), other (Patient reports having a scope of the right knee, two back surgeries, and Lasix surgery on his eyes.) Additional surgical history: 5 way bypass. r leg/ankle. bilat knee sx. mi crodiskectomy L4-L5. stent in right arm - Social History Smoking Status: Never smoker Smokeless Tobacco Status: No Alcohol use: rarely Drug use: none - Family History Mother Family Member Ethnicity: Non- Living Status: Hx Family Cardiac Disorders: Yes (CHF) Father Family Member Ethnicity: Non- Living Status: Brother Adopted: No Family Member Ethnicity: Non- Living Status: Hx Family Cardiac Disorders: Yes Hx Family Respiratory Disorders: Yes Hx Family Cancer: Yes Hx Family GI Disorders: No Hx Family Endocrine Disorder: Yes Hx Family Neuromuscular Disorders: No Hx Family Neurologic Disorders: No Hx Family HEENT Disorders: No Hx Family Autoimmune Disorders: No Sister Family Member Ethnicity: Non- Living Status: Still Living Hx Family Cardiac Disorders: Yes (HD, VA, HTN, Hyperlipidemia) Hx Family Respiratory Disorders: Yes (COPD) Hx Family Endocrine Disorder: Yes (DM) Internal Medicine - H&P: Meds Armodafinil [Nuvigil] 250 mg PO DAILY 03/21/17 [History] Clopidogrel [Plavix] 75 mg PO DAILY 03/21/17 [History] Gabapentin [Neurontin] 1,600 mg PO BID 03/21/17 [History] Glimepiride [Amaryl] 2 mg PO QAM 03/21/17 [History] Magnesium Oxide [Mgo] 400 mg PO BID 03/21/17 [History] Metformin HCl [Glucophage] 1,000 mg PO BID 03/21/17 [History] Multivits,Ca,Min/Iron/FA/Lycop [Centrum Men's Tablet] 1 tab PO DAILY 03/21/17 [History] Nitroglycerin [Nitrostat] 0.4 mg SL AD PRN 03/21/17 [History] Simvastatin [Zocor] 40 mg PO HS 03/21/17 [History] Zolpidem [Ambien] 10 mg PO HS 03/21/17 [History] Furosemide [Lasix] 20 mg PO DAILY 11/29/17 [History] Losartan [Cozaar] 25 mg PO DAILY 11/29/17 [History] Oxycodone HCl/Acetaminophen [Percocet 10-325 mg Tablet] 1 tab PO BID PRN 10/19/18 [History] Warfarin [Coumadin] 7.5 mg PO DAILY 10/19/18 [History] Allergy/AdvReac Type Severity Reaction Status Date / Time No Known Allergies Allergy Verified 11/29/17 10:00 All Systems PM: A 10-system review of systems was performed and is negative for pertinent findings except as documented above in the HPI. - Constitutional Constitutional: no chills, no lethargy, no weakness - EENT Nose, mouth and throat: no mouth pain, no neck pain - Cardiovascular Cardiovascular ROS IM: dyspnea, dyspnea on exertion, edema, no chest pain, no orthopnea, no palpitations, no paroxysmal nocturnal dyspnea, no syncope - Respiratory Respiratory: no cough, no wheezing, no chest congestion - Gastrointestinal Gastrointestinal: no abdominal pain, no melena, no nausea, no vomiting - Genitourinary Genitourinary ROS male: no dysuria, no nocturia, no urinary frequency, no urinary incontinence, no urinary urgency - Musculoskeletal Musculoskeletal ROS IM: no back pain, no deformity - Integumentary Integumentary IM: no erythema - Neurological Neurological ROS: no frequent falls, no headache(s), no memory loss - Psychiatric Psychiatric: no anxiety, no hopelessness, no irritability - Endocrine Endocrine IM: no cold intolerance, no excessive sweating - Hematologic/Lymphatic Hematologic/Lymphatic: no lymphadenopathy - Allergic/Immunologic Allergic/Immunologic: no GI upset with certain foods - Constitutional Vitals: Temp Pulse Resp BP Pulse Ox 97.8 F 58 16 139/65 96 04/17/19 14:57 04/17/19 14:57 04/17/19 14:57 04/17/19 14:57 04/17/19 14:57 Exam: Vitals: Reviewed General: Alert and oriented x4. In mild distress due to shortness of breath Skin: Normal color, no rash, no lesions. HEENT: EOM, pupils equal, round and reactive. Cardiovascular: irregularly irregular, normal S1 & S2, no rubs, murmurs or gallops. Lungs: CTA b/l, no wheezes or crackles. Abdomen: Obese, soft, non-tender, no rigidity. Extremities: 2+ edema in the lower extr b/l. Neurological: Normal cognition and motor skills. Rest of the physical exam is non contributory Internal Med - H&P Results - Labs CBC & Chem 7: 04/17/19 15:39 04/17/19 15:39 Labs: Short CBC 04/17/19 Range/Units 15:39 WBC 7.4 (4.3-11.1) K/mcL Hgb 12.6 L (12.9-16.9) g/dL Hct 36.6 L (37.5-50.1) % Plt Count 126 L (140-400) K/mcL Neutrophils # 4.4 (1.6-8.9) K/mcL BMP 04/17/19 15:39 Sodium 138 Potassium 4.0 Chloride 104 Carbon Dioxide 27 BUN 17 Creatinine 0.94 Glucose 330 H Calcium 9.3 Cardiac Enzymes 04/17/19 Range/Units 15:39 Troponin I < 0.03 (< 0.04) ng/mL - Impressions ITS Impressions Chest X-Ray 04/17/19 15:16 IMPRESSION: Cardiomegaly. No radiographic evidence of acute pulmonary disease. D/ / Yossi Awad / Yossi Awad Interpreting Provider: Yossi Awad - Diagnostic Studies Chest x-ray Status: image reviewed by me (cardiomegaly) - Assessment and Plan (1) Supratherapeutic INR Current Visit: Yes Status: Acute Assessment and plan: will hold warfarin and re-check INR in the morning. patient with no signs of bleeding. (2) DVT prophylaxis Current Visit: No Status: Chronic Assessment and plan: patient on warfarin with a supra-therapeutic INR. (3) CAD (coronary artery disease) Current Visit: No Status: Chronic Assessment and plan: Hx of multiple VA. s/p CAGB will continue clopidogrel 75mg/PO daily Qualifiers: Coronary Disease-Associated Artery/Lesion type: bypass graft [place] vs. transplanted heart: [place] heart Associated angina: without angina Qualified Code(s): I25.810 - Atherosclerosis of coronary artery bypass graft(s) without angina pectoris (4) Congestive heart failure (CHF) Current Visit: No Status: Chronic Assessment and plan: estimated e.f of 40-45%. chest is clear to auscultation. with 2+ pitting edema on the lower extr b/l. Plan increase furosemide to 40mg/IV daily. strict intake and output daily weight will hold bb due to bradycardia Qualifiers: Heart failure type: systolic Heart failure chronicity: chronic Qualified Code(s): I50.22 - Chronic systolic (congestive) heart failure (5) Diabetes mellitus Current Visit: No Status: Chronic Assessment and plan: presenting with hyperglycemia. place NPO accu-checks Q6HRs, plus lispor medium dose sliding scale Qualifiers: Diabetes mellitus type: type 2 Diabetes mellitus intermediate school teacher insulin use: without intermediate school teacher use Diabetes mellitus complication status: with hyperglycemia Qualified Code(s): E11.65 - Type 2 diabetes mellitus with hyperglycemia (6) Hyperlipidemia Current Visit: No Status: Chronic Assessment and plan: will continue simvastatin 40mg/PO daily Qualifiers: Hyperlipidemia type: pure hypercholesterolemia Qualified Code(s): E78.00 - Pure hypercholesterolemia, unspecified; E78.0 - Pure hypercholesterolemia (7) Hypertension Current Visit: No Status: Chronic Assessment and plan: will increase furosemide to 40mg/IV daily. bb held. will monitor and adjust medications as needed Qualifiers: Hypertension type: essential hypertension Qualified Code(s): I10 - Essential (primary) hypertension (8) Atrial flutter Current Visit: No Status: Acute Assessment and plan: with slow ventricular response. recent TSH wnl. Plan external cardiac pacer hold carvedilol serial trops cardiology consulted mag and phosp ordered NPO until cardiology evaluate the patient. Qualifiers: Atrial flutter type: unspecified Qualified Code(s): I48.92 - Unspecified atrial flutter - Time Spent With Patient Total time spent is greater than 50% in coordination of care (as documented) at patient's floor/unit and/or counseling patient: Greater than 35 minutes (50)
[2019-04-17] MEDS: Furosemide 40 MG/4 ML VIAL IVP SCH (19:47)
[2019-04-17] MEDS ORDERED: Insulin DETEMIR 100 UNIT/ML X5UNITS SQ SCH (21:00)
[2019-04-18] MEDS: Insulin LISPRO 300 UNITS/3 ML VIAL SQ SCH ×3 (01:21→17:30)
[2019-04-18 05:32] LABS: Basophils % 0.5 %; Eosinophils # 0.7 K/mcL (0.0-0.6); Eosinophils % 8.4 %; Hematocrit 39.1 % (37.5-50.1); Hemoglobin 13.3 g/dL (12.9-16.9); Immature Granulocytes % 0.4 % (0-4); Lymphocytes # 2.2 K/mcL (0.6-4.6); Lymphocytes % 27.6 %; Mean Corpuscular Hemoglobin 30.7 pg (28.0-33.3); Mean Corpuscular Volume 90.3 fL (83.0-100.0); Mean Platelet Volume 10.4 fL (9.4-12.4); Monocytes # 0.6 K/mcL (0.0-1.3); Monocytes % 7.4 %; Neutrophils # 4.5 K/mcL (1.6-8.9); Platelet Count 129 K/mcL (140-400); Red Blood Count 4.33 M/mcL (4.19-5.50); Red Cell Distribution Width 14.1 % (11.5-14.5); Segmented Neutrophils % 55.7 %
[2019-04-18 05:35] LABS: BUN/Creatinine Ratio 20 (6-26); Blood Urea Nitrogen 15 mg/dL (8-23); Calcium 9.5 mg/dL (8.6-10.3); Carbon Dioxide 26 mEq/L (23-29); Chloride 103 mEq/L (98-107); Glucose 155 mg/dL (70-105); Osmolality,Calculated 296 (280-300); Potassium 3.5 mEq/L (3.5-5.1); Sodium 141 mEq/L (136-145); eGFR For Non-African Americans > 60 (> 60)
[2019-04-18 05:38] LABS: INR 3.6; Prothrombin Time 40.2 Seconds (9.4-12.1)
[2019-04-18 05:40] LABS: Activated Partial Thrombo Time 47.8 Seconds (26.0-36.0)
[2019-04-18] MEDS ORDERED: Insulin LISPRO 300 UNITS/3 ML VIAL SQ SCH (07:30)
[2019-04-18 07:51] LABS: Magnesium 1.5 mg/dL (1.6-2.6); Phosphorous 3.1 mg/dL (2.7-4.5)
[2019-04-18] MEDS: Furosemide 40 MG/4 ML VIAL IVP SCH (10:23)
--- NOTE | 2019-04-18 10:43 | Cardiology Consult Note ---
Date of Encounter: 04/18/19 Time of Encounter: 10:00 Assessment and Plan (1) Bradycardia Current Visit: Yes Status: Acute Per cardiology: -Admitted with shortness of breath at rest. -Noted to be bradycardic, ECG with a.flutter, HR 44. -Average HR previous 12 hours noted to be 49. -Was on BB at home, currently on hold. Last dose 04/17/19 am. -BP stable. -No urgent indication for pacemaker at this time. -Continue to hold BB, will need 48 hour wash out. -Will continue to monitor HR. (2) Acute on chronic systolic CHF (congestive heart failure) Current Visit: Yes Status: Acute Per cardiology: -Known ICM. TTE 12/2018 with LVEF 40-45%, segmental wall motion abnormalities noted, mildly dilated LV, mild diastolic dysfunction. -was on BB and ARB at home. BB currently on hold due to bradycardia -Volume overlaoded on exam. Started on IV lasix, currently net negative ~1700ml. -Agree with IV diuresis. -Strict i/os, fluid restriction, daily weights. -Will resume ARB. (3) CAD (coronary artery disease) Current Visit: No Status: Chronic Per cardiology: -Known CAD s/p CABG. -Last [facility] 03/2017 with 100% prox LAD, 99% mid LAD, 100% prox circ, 90% mid RCA, 90% distal RCA, 100% RPDA, SVG to PDA patent, SALAZAR to LAD patent, SVG to OM patent, SVG to diag patent. -Stress 01/2019 negative for ischemia. Previous infarct noted. -On asa, plavix, statin. Not on BB due to bradycardia. -Denies chest pain. Qualifiers: Coronary Disease-Associated Artery/Lesion type: [place] artery [place] vs. transplanted heart: [place] heart Associated angina: without angina Qualified Code(s): I25.10 - Atherosclerotic heart disease of [place] coronary artery without angina pectoris (4) Atrial flutter Current Visit: No Status: Acute Per cardiology: -Known history of a.flutter. -BB now on hold due to bradycardia. -Was on coumadin in outpatient setting, now on hold due to supratherapeutic INRS. -Continue to hold BB. -Recommend Resuming coumadin when able. Qualifiers: Atrial flutter type: unspecified Qualified Code(s): I48.92 - Unspecified atrial flutter Discussion w patient/family: The assessment and plan as outlined above was discussed with the patient and/or family members who expressed understanding and agreement. All questions were answered. Thank you for involving us in the care of your patient. Please call with any questions. Discussed and reviewed with . History of Present Illness Consult date: 04/17/19 Requesting physician: Jamel Philippe Consult reason: bradycardia Chief complaint: shortness of breath History of present illness: Mr. Stevens is a 63 year old male with a relevant past medical history of CAD s/p CABG, ICM, CHF, DM, HTN, HLD, RI, narcolepsy, a.flutter, who presented to [facility] with complaints of shortness of breath. Patient states symptoms started 2-3 days ago. Patient states he notices shortness of breath more with sitting at rest. States when he is up walking or working around the house, is not short of breath. Patient denies dizziness, lightheadedness. Denies near syncope or syncope. Patient also reports lower extremity edema for 2-3 weeks. States he has been compliant with medications. Denies chest pain. Denies increased fatigue. Past Med Surg Social Fam HX - Past Medical History Attestation: Yes The following information was validated with the patient. Source: patient, old records reviewed Medical history: atrial fibrillation, cardiomyopathy, CHF, coronary artery disease, diabetes, hyperlipidemia, hypertension, myocardial infarction Additional medical history: [place] x 4, Right arm stent Psychiatric history: no psych history - Past Surgical History Surgical History: coronary bypass (CABG), other (Patient reports having a scope of the right knee, two back surgeries, and Lasix surgery on his eyes.) Additional surgical history: 5 way bypass. bilat knee sx. microdiskectomy L4- L5. stent in right arm - Social History Smoking Status: Never smoker Smokeless Tobacco Status: No Alcohol use: rarely Drug use: none - Family History Mother Family Member Ethnicity: Non- Living Status: Cause of : copd Hx Family Cardiac Disorders: Yes (CHF) Hx Family Respiratory Disorders: Yes (copd) Father Family Member Ethnicity: Non- Living Status: Cause of : accident Brother Adopted: No Family Member Ethnicity: Non- Living Status: Hx Family Cardiac Disorders: Yes Hx Family Respiratory Disorders: Yes Hx Family Cancer: Yes Hx Family GI Disorders: No Hx Family Endocrine Disorder: Yes Hx Family Neuromuscular Disorders: No Hx Family Neurologic Disorders: No Hx Family HEENT Disorders: No Hx Family Autoimmune Disorders: No Sister Family Member Ethnicity: Non- Living Status: Still Living Hx Family Cardiac Disorders: Yes (HD, RI, HTN, Hyperlipidemia) Hx Family Respiratory Disorders: Yes (COPD) Hx Family Endocrine Disorder: Yes (DM) Medications and Allergies Clopidogrel [Plavix] 75 mg PO DAILY 03/21/17 [History] Gabapentin [Neurontin] 800 mg PO QID 03/21/17 [History] Glimepiride [Amaryl] 2 mg PO DAILY 03/21/17 [History] Magnesium Oxide [Mgo] 400 mg PO BID 03/21/17 [History] Metformin HCl [Glucophage] 1,500 mg PO BID 03/21/17 [History] Nitroglycerin [Nitrostat] 0.4 mg SL AD PRN 03/21/17 [History] Simvastatin [Zocor] 40 mg PO HS 03/21/17 [History] Losartan [Cozaar] 25 mg PO DAILY 11/29/17 [History] Carvedilol [Coreg] 3.125 mg PO BID 04/18/19 [History] Furosemide [Lasix] 20 mg PO DAILY PRN 04/18/19 [History] Metformin HCl 500 mg PO DAILY PRN 04/18/19 [History] Warfarin [Coumadin] 7.5 mg PO MOWEFR 04/18/19 [History] Warfarin [Coumadin] 10 mg PO SUTUTHSA 04/18/19 [History] Allergy/AdvReac Type Severity Reaction Status Date / Time No Known Allergies Allergy Verified 04/18/19 08:28 All Systems Review: The remainder of the systems were reviewed and are negative - Cardiovascular Cardiovascular: as per HPI, dyspnea at rest, leg edema Physical Examination Vital Signs, Last 4 Hours Temp Pulse Resp BP Pulse Ox 04/18/19 07:51 97.5 F L 44 16 139/85 93 General: Conversant, No Apparent Distress HEENT: Atraumatic, Normocephaly, Mucus Membranes Moist Neck: No JVD, Normal carotid pulses Cardiac: Normal S1 and S2, No Murmur, Other (Regularly irregular. Bradycardic. ) Lungs: Normal Breath Sounds, No Wheeze, Rales, Rhonchi Neuro: Alert and responsive, No focal deficits noted Abdomen: Soft, Non-Tender Skin: No rashes noted on visualized skin Musculoskeletal: No Chest Wall Tenderness Extremities: No Clubbing, No Cyanosis, Normal Pulses, Other (2+ bilateral lower extremity pitting edema. ) Results 04/18/19 04:58 04/18/19 04:58 Lab Results Impressions Chest X-Ray 04/17/19 15:16 IMPRESSION: Cardiomegaly. No radiographic evidence of acute pulmonary disease. D/ / Yossi Awad / Yossi Awad Interpreting Provider: Yossi Awad Active Medications Clopidogrel Bisulfate (Plavix) 75 mg PO DAILY [facility] Stop: 10/18/19 09:01 Last Admin: 04/18/19 10:22 Dose: 75 mg Documented by: Dextrose/Water (Dextrose 50% (Syg)) 25 ml IVP AD PRN PRN Reason: Hypoglycemia Stop: 10/17/19 17:55 Furosemide (Lasix) 40 mg IVP DAILY [facility]BI Stop: 10/17/19 18:16 Last Admin: 04/18/19 10:23 Dose: 40 mg Documented by: Glucagon (Glucagen) 1 mg IM ONCE PRN PRN Reason: Hypoglycemia Stop: 10/17/19 17:55 Glucose (Gluctose) 15 gm PO ONCE PRN PRN Reason: Hypoglycemia Stop: 10/17/19 17:55 Glucose (Gluctose) 30 gm PO ONCE PRN PRN Reason: Hypoglycemia Stop: 10/17/19 17:55 Dextrose (Dextrose 5%) 1,000 mls @ 100 mls/hr IVC .Q10H PRN PRN Reason: HYPOGLYCEMIA Stop: 10/17/19 17:55 Insulin Human Lispro (Humalog) 0 units SQ Q6HR BOBBI; Protocol Stop: 10/18/19 00:01 Last Admin: 04/18/19 06:51 Dose: Not Given Documented by: Naloxone HCl (Narcan) 0.4 mg IVP Q2MPRN PRN PRN Reason: SEE COMMENTS Stop: 10/17/19 17:52 Simvastatin (Zocor) 40 mg PO HS BOBBI; Protocol Stop: 10/17/19 21:01 Last Admin: 04/17/19 23:26 Dose: 40 mg Documented by: Tramadol HCl (Ultram) 50 mg PO Q6HR PRN PRN Reason: Moderate Pain Stop: 10/17/19 17:52 Laboratory Tests 04/17/19 04/17/19 04/18/19 15:39 15:39 04:58 Hgb 13.3 INR Creatinine Troponin I < 0.03 B-Natriuretic Peptide 166 H 04/18/19 04/18/19 04:58 04:58 Hgb INR 3.6 Creatinine 0.76 Troponin I B-Natriuretic Peptide - Imaging and Cardiology Chest Xray: report reviewed Stress Test: report reviewed Echo: report reviewed Cardiac cath: report reviewed - EKG Interpretation EKG results cardiology: personally reviewed (ECG with aDominicflutter, SVR, HR 44.), other (Telemetry reviewed with average HR previous 12 hours noted to be 49, a.flutter. PVCS noted.) Consult Discharge Plan - Plan Referrals: Michaelle Grover, ROLFER [Primary Care Provider] -
--- NOTE | 2019-04-18 12:14 | Internal Med Progress Note ---
Hospitalist Progress Note - Encounter Date of Encounter: 04/18/19 Time of Encounter: 12:12 - Subjective Interval History: I have seen and evaluated the patient at bedside. patient reports he is feeling much better today. reports the shortness of breath has resolved. denies chest pain, nausea, vomiting or abdominal pain. - Exam Vitals: Temp Pulse Resp BP Pulse Ox 97.7 F 75 16 126/77 94 04/18/19 11:51 04/18/19 11:51 04/18/19 11:51 04/18/19 11:51 04/18/19 11:51 Exam: Vitals: Reviewed General: Alert and oriented x4. In no distress Cardiovascular: irregularly irregular, normal S1 & S2, no rubs, murmurs or gallops. Lungs: CTA b/l, no wheezes or crackles. Abdomen: Obese, soft, non-tender, no rigidity. 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 Neurological: No focal neurological deficits Rest of the physical exam is non contributory - Assessment and Plan (1) Atrial flutter Current Visit: No Status: Acute Assessment and Plan: HR have been ranging in the 40s-60s. will continue to hold bb. cardiology recommendations appreciated. will keep patient in the hospital 24 more hours for close observation. will resume warfarin per pharmacy protocol. (2) CAD (coronary artery disease) Current Visit: No Status: Chronic Assessment and Plan: Patient is on clopidogrel 75 mg by mouth daily. (3) Congestive heart failure (CHF) Current Visit: No Status: Chronic Assessment and Plan: no crackles on auscultation. Plan: Continue gentle IV diuresis with furosemide 40mg/IV daily strict intake and output water restriction to 1.5 litters a day. daily weight 2 gram sodium diet will continue to follow cardiology recommendations Continue to hold low dose beta-caryl (4) Diabetes mellitus Current Visit: No Status: Chronic Assessment and Plan: Blood sugar is well controlled. Patient is on insulin lispro low-dose before meals. levemir 10 units HS added (5) Hyperlipidemia Current Visit: No Status: Chronic Assessment and Plan: Simvastatin 40 mg by mouth at bedtime. (6) Hypertension Current Visit: No Status: Chronic Assessment and Plan: Blood pressure is well controlled on furosemide 40 mg IV daily and losartan 25 mg by mouth daily. (7) Supratherapeutic INR Current Visit: Yes Status: Resolved (8) Hypomagnesemia Current Visit: Yes Status: Acute Assessment and Plan: electrolyte replaced. DVT Prophylaxis: Patient is on warfarin per pharmacy protocol. - Summary of Assessment and Plan Summary of Assessment and Plan: Patient to remain in the hospital on telemetry monitoring for at least 24 more hours. Potential discharge tomorrow morning. - Time Spent with Patient Total time spent is greater than 50% in coordination of care (as documented) at patient's floor/unit and/or counseling patient: Greater than 35 minutes (40) Plan of Care Discussed with: patient (and the nurse.) Internal Medicine: Result - Labs CBC & Chem 7: 04/18/19 04:58 04/18/19 04:58 Labs: Short CBC 04/17/19 04/18/19 Range/Units 15:39 04:58 WBC 7.4 8.1 (4.3-11.1) K/mcL Hgb 12.6 L 13.3 (12.9-16.9) g/dL Hct 36.6 L 39.1 (37.5-50.1) % Plt Count 126 L 129 L (140-400) K/mcL Neutrophils # 4.4 4.5 (1.6-8.9) K/mcL BMP 04/17/19 04/18/19 15:39 04:58 Sodium 138 141 Potassium 4.0 3.5 Chloride 104 103 Carbon Dioxide 27 26 BUN 17 15 Creatinine 0.94 0.76 Glucose 330 H 155 H Calcium 9.3 9.5 Cardiac Enzymes 04/17/19 Range/Units 15:39 Troponin I < 0.03 (< 0.04) ng/mL - ABG Interpretation ABG results: PT/INR, D-dimer PT 40.2 Seconds (9.4-12.1) H 04/18/19 04:58 - Impressions Impressions Chest X-Ray 04/17/19 15:16 IMPRESSION: Cardiomegaly. No radiographic evidence of acute pulmonary disease. D/ / Yossi Awad / Yossi Awad Interpreting Provider: Yossi Awad Consult Discharge Plan - Plan Referrals: Michaelle Grover, CLOTH CALENDER [Primary Care Provider] - (1) Atrial flutter Qualifiers: Atrial flutter type: unspecified Qualified Code(s): I48.92 - Unspecified atrial flutter (2) CAD (coronary artery disease) Qualifiers: Coronary Disease-Associated Artery/Lesion type: [place] artery [place] vs. transplanted heart: [place] heart Associated angina: without angina Qualified Code(s): I25.10 - Atherosclerotic heart disease of [place] coronary artery without angina pectoris (3) Congestive heart failure (CHF) Qualifiers: Heart failure type: systolic Heart failure chronicity: chronic Qualified Co de(s): I50.22 - Chronic systolic (congestive) heart failure (4) Diabetes mellitus Qualifiers: Diabetes mellitus type: type 2 Diabetes mellitus jail insulin use: without exterminator termite use Diabetes mellitus complication status: with hyperglycemia Qualified Code(s): E11.65 - Type 2 diabetes mellitus with hyperglycemia (5) Hyperlipidemia Qualifiers: Hyperlipidemia type: pure hypercholesterolemia Qualified Code(s): E78.00 - Pure hypercholesterolemia, unspecified; E78.0 - Pure hypercholesterolemia (6) Hypertension Qualifiers: Hypertension type: essential hypertension Qualified Code(s): I10 - Essential (primary) hypertension
[2019-04-18] MEDS ORDERED: *HR* Warfarin 5 MG TABLET PO ONE (18:00)
[2019-04-18] MEDS ORDERED: Warfarin perPT PO SCH (18:00)
[2019-04-18] MEDS: Gabapentin 400 MG CAPSULE PO SCH (19:29)
--- NOTE | 2019-04-18 20:59 | Electrocardiograph Report ---
[address] [address] Test Date: 2019-04-17 Pat Name: Ap Stevens Department: [id number] Room: 2N2 Gender: M Wool Presser: : 1955 Requested By: Jamel Philippe Order Number: [id number] Reading MD: Luis Fernando Bang Measurements Intervals [place] Rate: 44 P: AL: QRS: -41 QRSD: 159 T: 141 QT: 469 QTc: 402 Interpretive Statements Atrial flutter Left bundle branch block Electronically Signed On 04-18-2019 20:57:42 EDT by Luis Fernando Bang
[2019-04-18] MEDS ORDERED: Insulin DETEMIR 100 UNIT/ML X5UNITS SQ SCH (21:00)
[2019-04-19 05:25] LABS: INR 2.1; Prothrombin Time 23.3 Seconds (9.4-12.1)
[2019-04-19 05:35] LABS: BUN/Creatinine Ratio 22 (6-26); Blood Urea Nitrogen 17 mg/dL (8-23); Calcium 9.1 mg/dL (8.6-10.3); Carbon Dioxide 26 mEq/L (23-29); Chloride 102 mEq/L (98-107); Glucose 189 mg/dL (70-105); Magnesium 1.7 mg/dL (1.6-2.6); Osmolality,Calculated 295 (280-300); Phosphorous 3.7 mg/dL (2.7-4.5); Potassium 3.5 mEq/L (3.5-5.1); Sodium 139 mEq/L (136-145); eGFR For Non-African Americans > 60 (> 60)
[2019-04-19 07:41] VITALS: BP 137/77
--- NOTE | 2019-04-19 10:09 | Cardiology Progress Note ---
Date of Encounter: 04/19/19 Time of Encounter: 08:00 Assessment and Plan (1) Bradycardia Current Visit: Yes Status: Acute Per cardiology: Patient admitted with shortness of breath. Found to have acute on chronic heart failure. Noted to have low heart rates during hospital stay and beta caryl held. Last dose of beta caryl was 04/17/19. 24 hour telemetry review shows nocturnal atrial flutter with slow ventricular response with heart rate as low as 29 bpm at 4:20 AM. Average heart rate was 55 beats per minutes. Heart rate on my exam 65-85 bpm. Atrial flutter. Heart rate increases appropriately when patient is awake. Noted to have heart rate in mid 40s at times at rest. Patient denies symptoms. He remains normotensive to hypertensive with low heart rates. ECG with a.flutter, HR 44. Discussed findings with Dr. Biggs. Recommends continuing holding beta caryl. No urgent indication for pacemaker at this time. We will schedule follow-up in one week with EP to discuss further management and possible peacemaker in the future if indicated. Okay for discharge from cardiology standpoint. (2) CAD (coronary artery disease) Current Visit: No Status: Chronic Per cardiology: History of CAD status post CABG and prior PCI. Last C 03/2017 with 100% prox LAD, 99% mid LAD, 100% prox circ, 90% mid RCA, 90% distal RCA, 100% RPDA, SVG to PDA patent, SALAZAR to LAD patent, SVG to OM patent, SVG to diag patent. Stress 01/2019 negative for ischemia. Previous infarct noted. On asa, plavix, statin. Not on BB due to bradycardia. Denies chest pain. Qualifiers: Coronary Disease-Associated Artery/Lesion type: [place] artery [place] vs. transplanted heart: [place] heart Associated angina: without angina Qualified Code(s): I25.10 - Atherosclerotic heart disease of [place] coronary artery without angina pectoris (3) Supratherapeutic INR Current Visit: Yes Status: Resolved On coumadin for afib. Follows with the [facility] [facility]. INR supratherapeutic on admission. (4) Acute on chronic systolic CHF (congestive heart failure) Current Visit: Yes Status: Acute Per cardiology: -Known ICM. TTE 12/2018 with LVEF 40-45%, segmental wall motion abnormalities noted, mildly dilated LV, mild diastolic dysfunction. -was on BB and ARB at home. BB currently on hold due to bradycardia -Volume overlaoded on exam. On IV lasix, currently net negative ~2870ml. Currently on 20 mg of Lasix daily at home. Recommend increasing to 40 mg daily. Low-sodium diet stressed. Daily weights discussed with patient. Discussion w patient/family: The assessment and plan as outlined above was discussed with the patient and/or family members who expressed understanding and agreement. All questions were answered. Thank you for involving us in the care of your patient. Please call with any questions. Subjective Principal diagnosis: atrial flutter with slow ventricular response Interval history: Mr. Stevens notes HR low overnight. He states that he feels fine and denied symptoms overnight. States that he meant around the room and did a jumping noble this morning noticing his heart rate going up appropriately. Objective Vital Signs, Last 4 Hours Temp Pulse Resp BP Pulse Ox 04/19/19 07:36 97.3 F L 52 18 137/77 92 General: Conversant, No Apparent Distress HEENT: Atraumatic, Normocephaly, Mucus Membranes Moist Neck: No JVD, Normal carotid pulses Cardiac: Other (Irregularly irregular) Lungs: Normal Breath Sounds, No Wheeze, Rales, Rhonchi Neuro: Alert and responsive, No focal deficits noted Abdomen: Soft, Non-Tender Skin: No rashes noted on visualized skin Musculoskeletal: No Chest Wall Tenderness Extremities: No Clubbing, No Cyanosis, No Edema, Normal Pulses Results 04/18/19 04:58 04/19/19 04:38 Lab Results 04/19/19 04/19/19 04:38 04:38 INR 2.1 Sodium 139 Potassium 3.5 Chloride 102 Carbon Dioxide 26 BUN 17 Creatinine 0.78 Glucose 189 H Calcium 9.1 Magnesium 1.7 - Imaging and Cardiology Echo: report reviewed - EKG Interpretation EKG results cardiology: personally reviewed Consult Discharge Plan - Plan Referrals: Michaelle Grover, SCREEN STRETCHER [Primary Care Provider] - (Referral made, physicians office will contact the patient by phone.)
[2019-04-19] MEDS: Gabapentin 400 MG CAPSULE PO SCH (10:59)
[2019-04-19] MEDS: Furosemide 40 MG/4 ML VIAL IVP SCH (10:59)
[2019-04-19] MEDS: Insulin LISPRO 300 UNITS/3 ML VIAL SQ SCH (10:59)
--- NOTE | 2019-04-19 11:11 | Discharge Summary ---
Orders not resulted at time of discharge: Pending orders 04/19/19 05:20 ECG 12 lead ECG [ECG] Routine 04/20/19 04:00 PT/INR [Prothrombin Time INR] [COAG] AM 0400 04/21/19 04:00 PT/INR [Prothrombin Time INR] [COAG] AM 0400 Date of Encounter: 04/19/19 Time of Encounter: 11:09 - Discharge Diagnosis (1) Atrial flutter Priority: Primary Status: Acute Qualifiers: Atrial flutter type: unspecified Qualified Code(s): I48.92 - Unspecified atrial flutter (2) CAD (coronary artery disease) Priority: Secondary Status: Chronic Qualifiers: Coronary Disease-Associated Artery/Lesion type: [place] artery [place] vs. transplanted heart: [place] heart Associated angina: without angina Qualified Code(s): I25.10 - Atherosclerotic heart disease of [place] coronary artery without angina pectoris (3) Congestive heart failure (CHF) Priority: Secondary Status: Chronic Qualifiers: Heart failure type: systolic Heart failure chronicity: chronic Qualified Code(s): I50.22 - Chronic systolic (congestive) heart failure (4) Diabetes mellitus Priority: Secondary Status: Chronic Qualifiers: Diabetes mellitus type: type 2 Diabetes mellitus pit inspector insulin use: without retirement use Diabetes mellitus complication status: with hyperglycemia Qualified Code(s): E11.65 - Type 2 diabetes mellitus with hyperglycemia (5) Hyperlipidemia Priority: Secondary Status: Chronic Qualifiers: Hyperlipidemia type: pure hypercholesterolemia Qualified Code(s): E78.00 - Pure hypercholesterolemia, unspecified; E78.0 - Pure hypercholesterolemia (6) Hypertension Priority: Secondary Status: Chronic Qualifiers: Hypertension type: essential hypertension Qualified Code(s): I10 - Essential (primary) hypertension (7) Supratherapeutic INR Priority: Primary Status: Resolved (8) Hypomagnesemia Priority: Secondary Status: Acute (9) Bradycardia Priority: Primary Status: Resolved Hospital course: Mr. Stevens is a 63 year old male PMH of CAD, s/p CABG x4MI last one in 2017, MD, HFrEF, HLD, Atrial flutter, left ventricular thrombus, HTN. Patient presented to the ED due to shortness of breath. In the ED he was found to be bradycardic with his HR ranging in the mid 30s and 40s. Patient admitted to the hospital due to bradycardia. Patient was managed by holding his home bb. cardiology consulted and recommended no intervention and to follow up with the EP within 3- 4 weeks as outpatient. Patient is hemodynamically stable to be discharged home. - Time Spent with Patient Total time spent providing and/or coordinating discharge services: Time spent: Greater than 30 minutes (35) - Discharge Medications Prescriptions: Continued Nitroglycerin [Nitrostat] 0.4 mg SL AD PRN PRN Reason: Chest Pain Metformin HCl [Glucophage] 1,500 mg PO BID Magnesium Oxide [Mgo] 400 mg PO BID Glimepiride [Amaryl] 2 mg PO DAILY Gabapentin [Neurontin] 800 mg PO QID Simvastatin [Zocor] 40 mg PO HS Clopidogrel [Plavix] 75 mg PO DAILY Losartan [Cozaar] 25 mg PO DAILY Furosemide [Lasix] 20 mg PO DAILY PRN PRN Reason: Edema Warfarin [Coumadin] 10 mg PO SUTUTHSA Warfarin [Coumadin] 7.5 mg PO MOWEFR Metformin HCl 500 mg PO DAILY PRN PRN Reason: BLOOD GLUCOSE Discontinued Carvedilol [Coreg] 3.125 mg PO BID Home Medications: Clopidogrel [Plavix] 75 mg PO DAILY 03/21/17 [History] Gabapentin [Neurontin] 800 mg PO QID 03/21/17 [History] Glimepiride [Amaryl] 2 mg PO DAILY 03/21/17 [History] Magnesium Oxide [Mgo] 400 mg PO BID 03/21/17 [History] Metformin HCl [Glucophage] 1,500 mg PO BID 03/21/17 [History] Nitroglycerin [Nitrostat] 0.4 mg SL AD PRN 03/21/17 [History] Simvastatin [Zocor] 40 mg PO HS 03/21/17 [History] Losartan [Cozaar] 25 mg PO DAILY 11/29/17 [History] Furosemide [Lasix] 20 mg PO DAILY PRN 04/18/19 [History] Metformin HCl 500 mg PO DAILY PRN 04/18/19 [History] Warfarin [Coumadin] 7.5 mg PO MOWEFR 04/18/19 [History] Warfarin [Coumadin] 10 mg PO SUTUTHSA 04/18/19 [History] Allergies/Adverse Reactions: Allergy/AdvReac Type Severity Reaction Status Date / Time No Known Allergies Allergy Verified 04/18/19 08:28 Date of admission: 04/17/19 19:55 Primary care physician: Michaelle Grover CNP Consults: 04/17/19 17:45 Consult to Cardiology [CONS] Stat Comment: Consulting Provider: Cardiology Camelia Reason for Consult: symptomatic bradycardia (dyspnea, palpitation, no CP). holding AV gely caryl. Time Notified: 17:45 Call Completed: Yes - Constitutional Vitals: Temp Pulse Resp BP Pulse Ox 97.3 F L 52 18 137/77 92 04/19/19 07:36 04/19/19 07:36 04/19/19 07:36 04/19/19 07:36 04/19/19 07:36 Exam: Vitals: Reviewed General: Alert and oriented x4. In no distress Cardiovascular: irregularly irregular, normal S1 & S2, no rubs, murmurs or gallops. Lungs: CTA b/l, no wheezes or crackles. Abdomen: Obese, soft, non-tender, no rigidity. 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 Neurological: No focal neurological deficits Rest of the physical exam is non contributory - Patient Status Disposition: Home, Self-Care Condition: Good Functional capacity at discharge: independent ambulation Overall status at discharge: patient is back to baseline - Discharge Instructions Follow Up With: Michaelle Grover CNP [Primary Care Provider] - (Referral made, physicians office will contact the patient by phone.) - Diet and Activity Activity: resume usual activities as tolerated Diet: diabetic diet, low salt diet
[2019-04-19] MEDS ORDERED: *HR* Warfarin 5 MG TABLET PO ONE (18:00)
--- NOTE | 2019-04-21 08:47 | Electrocardiograph Report ---
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
== END 2019-04-19 12:09 | disposition home or self-care (01) ==
LOC: EMEROOARM 14:54 → 2NENU 14:54 → SUATTDRO 19:55 → 2NENU 22:00
PROVIDERS: ADMIT Internal Medicine Nephrology; ATTEND Internal Medicine

== ENCOUNTER 2019-11-27 13:33 | Observation (INO) ==
[2019-11-27] MEDS ORDERED: Acetaminophen 325 MG TABLET PO PRN (16:40)
[2019-11-27] MEDS ORDERED: *HR* HYDROcodone/Acet 5/325 mg TABLET PO PRN (16:40)
[2019-11-27] MEDS ORDERED: Ondansetron 4 MG/2 ML VIAL IVP PRN (16:40)
[2019-11-27] MEDS ORDERED: Naloxone 0.4 MG/ML INJ IVP PRN (16:40)
[2019-11-27] MEDS ORDERED: Furosemide 40 MG TABLET PO PRN (16:48)
[2019-11-27] MEDS ORDERED: Nitroglycerin 0.4 MG TAB.SUBL SL PRN (16:48)
[2019-11-27] MEDS ORDERED: *HR* Dextrose 50 % in Water (Syg) 50 ML SYRINGE IVP PRN (16:49)
[2019-11-27] MEDS ORDERED: Dextrose Gel 15 GM/37.5 ML TUBE PO PRN ×2 (16:49)
[2019-11-27] MEDS ORDERED: D5% in Water 1,000 ML IVC PRN (16:49)
[2019-11-27] MEDS ORDERED: Warfarin perPT PO PRN (18:00)
[2019-11-27] MEDS: 0.9 % Sodium Chloride 1,000 ML IVC SCH (18:08)
[2019-11-27 18:27] LABS: INR 2.5; Prothrombin Time 28.4 Seconds (9.4-12.1)
[2019-11-27] MEDS ORDERED: *HR* Warfarin 5 MG TABLET PO ONE (18:44)
[2019-11-27] MEDS ORDERED: Perflutren Lipid Microsphere 1.3 ML in 0.9 % Sodium Chloride 8.7 ML IVP ONE (18:51)
[2019-11-27] MEDS: Gabapentin 400 MG CAPSULE PO SCH (20:56)
[2019-11-27] MEDS: Magnesium Oxide 400 MG TABLET PO SCH (20:56)
[2019-11-27] MEDS ORDERED: Insulin DETEMIR 100 UNIT/ML X5UNITS SQ SCH (21:00)
[2019-11-28 06:36] LABS: INR 2.9; Prothrombin Time 32.7 Seconds (9.4-12.1)
[2019-11-28 06:43] LABS: Basophils % 0.5 %; Eosinophils # 0.4 K/mcL (0.0-0.6); Eosinophils % 6.3 %; Hematocrit 37.3 % (37.5-50.1); Hemoglobin 13.1 g/dL (12.9-16.9); Immature Granulocytes % 0.3 % (0-4); Lymphocytes % 30.3 %; Mean Corpuscular HGB Conc 35.1 g/dL (31.6-35.5); Mean Corpuscular Hemoglobin 32.3 pg (28.0-33.3); Mean Corpuscular Volume 92.1 fL (83.0-100.0); Monocytes # 0.5 K/mcL (0.0-1.3); Monocytes % 7.6 %; Neutrophils # 3.6 K/mcL (1.6-8.9); Platelet Count 132 K/mcL (140-400); Red Blood Count 4.05 M/mcL (4.19-5.50); Red Cell Distribution Width 13.3 % (11.5-14.5); White Blood Count 6.5 K/mcL (4.3-11.1)
[2019-11-28 06:50] LABS: BUN/Creatinine Ratio 18 (6-26); Blood Urea Nitrogen 17 mg/dL (8-23); Carbon Dioxide 27 mEq/L (23-29); Chloride 101 mEq/L (98-107); Chol/HDL Ratio 5.3 (0-4.9); Cholesterol 164 mg/dL (< 200); Glucose 181 mg/dL (70-105); HDL Cholesterol 31 mg/dL (40-59); LDL Cholesterol,Calculated 74 mg/dL (0-99); Magnesium 1.7 mg/dL (1.6-2.6); Osmolality,Calculated 294 (280-300); Potassium 3.7 mEq/L (3.5-5.1); Sodium 139 mEq/L (136-145); Triglycerides 296 mg/dL (< 150); eGFR For African Americans > 60 (> 60); eGFR For Non-African Americans > 60 (> 60)
[2019-11-28] MEDS: 0.9 % Sodium Chloride 1,000 ML IVC SCH (07:34)
[2019-11-28] MEDS: Insulin LISPRO 300 UNITS/3 ML VIAL SQ SCH ×2 (07:44→13:30)
[2019-11-28 08:46] LABS: Estimated Average Glucose 252 mg/dl
[2019-11-28] MEDS: Magnesium Oxide 400 MG TABLET PO SCH (10:11)
[2019-11-28] MEDS: Gabapentin 400 MG CAPSULE PO SCH (10:11)
[2019-11-28 11:10] VITALS: BP 158/91
[2019-11-28] MEDS ORDERED: *HR* Warfarin 7.5 MG TABLET PO ONE (18:00)
== END 2019-11-28 17:08 | disposition home or self-care (01) ==
LOC: 3BNU → SUATTDRO 15:16
PROVIDERS: ADMIT Internal Medicine; ATTEND Internal Medicine